=== PATIENT | female | born 1950 | race Caucasian/White ===

== ENCOUNTER 2016-07-28 12:50 | Outpatient (RCR) | payer MEDICARE ==
[~2016-07-28 12:50] MED LIST: ACET-2422 PO; AMOX-358 PO; ASP81CT PO; CEPH-507 PO; CHOL5000 PO; CHOL50005 PO; CRAN200C PO; CYAN100088 PO; CYAN1LOZ SL; CYCL10TA9 PO; DICL75TA2; DICL75TA2 PO; FLC100T1 PO; FLUO20CA25 PO; GABA-486 PO; GABA-488 PO; GBPN100C PO; GBPN300C PO; HCT25T; HYDR-3063 PO; HYDR-3583 PO; HYDR-757 PO; HYDR-87 PO; HYDR1TAB8; HYDR25TA4 PO; IPRA3AMP19 IH; KRIL500C PO; L.AC1CAP6 PO; LANO454C3 TOP; LEVO500T69 PO; LNZ600T PO; LVF500T PO; MEGA RED 300 MG PO; MELO15TA39 PO; METO-272; METO-272 PO; METO50TA2 PO; METR500T PO; MTP50T PO; MULT-35 PO; MULT-608 PO; OXYC-197 PO; OXYC-471 PO; POTA10TA10 PO; POTA10TA14 PO; POTA10TA6 PO; PRX10T PO; [UNRECOGNIZED DRUG - OTHER]
--- OUTSIDE RECORDS SUMMARY | 2016-07-28 12:54 | XMS REPORT | Continuity of Care Document ---
Author Author [facility] Organization [facility] Address Unknown Phone Unavailable Care Team Providers Care Wood Inspector Name Role Phone ISAURO HIGHTOWER MD PCP Insurance Providers Payer Name Policy Number Subscriber Name Relationship Wps Medicare [id number] Margarita Mariscal 18 Self / Same As Patient [facility] [id number] Margarita Mariscal 18 Self / Same As Patient Advance Directives Directive Response Recorded Date/Time Advance Directives Yes 02/13/16 9:10am Health Care Power of Snuff Grinder And Screener Yes 02/13/16 9:10am Organ Donor No 09/19/15 [...] Discontinued Cholecalciferol (Vitamin D3) 50,000 Unit Capsule, 82215 Unit Oral Daily 07/04 Discontinued Cranberry Extract [...] 2.00 inches 02/13/2016 9:09am Height (Calculated Centimeters) 157.124567 cm 02/13/2016 9:09am Weight (Pounds) 205 pounds 02/13/2016 9:09am Weight (Ounces) 9.0 oz 02/13/2016 9:09am Weight (Calculated Grams) 07356.582 gm 02/13/2016 9:09am Weight (Calculated Kilograms) 93.125073 kilograms 02/13/2016 9:09am Calculated BMI 37.6 02/13/2016 [...] SELECTED GROUPS OF HIGH RISK PATIENTS. SIXTH [place] COLLEGE OF CHEST PHYSICIANS CONSENSUS CONFERENCE ON ANTITHROMBOTIC THERAPY (2000). Urine Color YELLOW 02/13/2016 9:50am 02/13/2016 10:16am Urine Clarity SLIGHTLY CLOUDY 02/13/2016 9:50am 02/13/2016 10:16am Urine pH 6.5 5-9 02/13/2016 9:50am 02/13/2016 10:16am Urine Specific [place] 1.010 * 1.016-1.022 02/13/2016 9:50am 2015 10:16am [...] Discharge/Depart Date Attending Provider Departed Clinic [facility] 02/13/16 8:59am 02/13/16 1: 08pm SALOMÓN ADKINS MD
[2016-07-28 13:10] LABS: BASOPHILS % (AUTO) 1 % (0-10); EOSINOPHILS # (AUTO) 0.2 10^3/uL (0.0-0.3); EOSINOPHILS % (AUTO) 5 % (0-10); LYMPHOCYTES # (AUTO) 1.1 X 10^3 (1.0-4.0); LYMPHOCYTES % (AUTO) 26 % (12-44); MEAN CORPUSCULAR HEMOGLOBIN 29 PG (25-34); MEAN CORPUSCULAR HGB CONC 34 G/DL (32-36); MEAN CORPUSCULAR VOLUME 85 FL (80-99); MEAN PLATELET VOLUME 9.4 FL (7.4-10.4); MONOCYTES # (AUTO) 0.5 X 10^3 (0.0-1.0); MONOCYTES % (AUTO) 12 % (0-12); NEUTROPHILS # (AUTO) 2.5 X 10^3 (1.8-7.8); NEUTROPHILS % (AUTO) 57 % (42-75); PLATELET COUNT 230 10^3/uL (130-400); RED BLOOD COUNT 4.34 10^6/uL (4.35-5.85); RED CELL DISTRIBUTION WIDTH 14.7 % (10.0-14.5); WHITE BLOOD COUNT 4.4 10^3/uL (4.3-11.0)
[2016-07-28 13:38] LABS: ALANINE AMINOTRANSFERASE 27 U/L (0-55); ANION GAP 8 MMOL/L (5-14); ASPARTATE AMINO TRANSFERASE 32 U/L (5-34); BILIRUBIN,TOTAL 0.4 MG/DL (0.1-1.0); BLOOD UREA NITROGEN 15 MG/DL (7-18); BUN/CREATININE RATIO 21; CALCIUM 9.5 MG/DL (8.5-10.1); CARBON DIOXIDE 30 MMOL/L (21-32); CHLORIDE 105 MMOL/L (98-107); CREATININE SERUM 0.72 MG/DL (0.60-1.30); GFR ESTIMATED > 60; GLUCOSE 106 MG/DL (70-105); POTASSIUM 4.2 MMOL/L (3.6-5.0); SODIUM 143 MMOL/L (135-145); TOTAL PROTEIN 6.7 G/DL (6.4-8.2)
== END 2016-10-26 | disposition home or self-care (01) ==
LOC: ONC 12:50
PROVIDERS: ATTEND Internal Medicine Hematology & Oncology
DX: C50.012 Malignant neoplasm of nipple and areola, left female breast (principal); M06.9 Rheumatoid arthritis, unspecified
CPT/HCPCS: 36415; 80053; 85025; 99213

== ENCOUNTER 2016-08-25 15:00 | Outpatient (RCR) | payer MEDICARE ==
--- OUTSIDE RECORDS SUMMARY | 2016-06-11 12:59 | XMS REPORT | Continuity of Care Document ---
Author Author [facility] Organization [facility] Address Unknown Phone Unavailable Care Team Providers Care Fur Trimming Machine Operator Name Role Phone ISAURO HIGHTOWER MD PCP Insurance Providers Payer Name Policy Number Subscriber Name Relationship [employer] Medicare [id number] Margarita Mariscal 18 Self / Same As Patient [facility] [id number] Margarita Mariscal 18 Self / Same As Patient Advance Directives Directive Response Recorded Date/Time Advance Directives Yes 02/13/16 9:10am Health Care Power of Steel Fixer Yes 02/13/16 9:10am Organ Donor No 09/19/15 8:15am Resuscitation Status Full Code 02/13/16 9:10am Problems Active Problems Medical Problem Onset Date Status Facial fracture due to fall Unknown Acute Facial fracture due to fall Unknown Acute Medications Current Home Medications Medication Dose Units Route Directions Days/Qty Instructions Start Date Aspirin 81 Mg 81 Mg Oral Daily 07/06/11 Meloxicam 15 Mg 15 Mg Oral Daily 07/04/15 L.acidoph & Paracasei,B.lactis 1 Each 1 Cap Oral Daily 07/04/15 Cyanocobalamin (Vitamin B-12) 1,000 Mcg 2,500 Mcg Oral Daily Krill Oil 500 Mg 500 Mg Oral Daily 07/04/15 Fluoxetine Hcl 20 Mg 20 Mg Oral Daily 07/11/15 Cyclobenzaprine Hcl 10 Mg 20 Mg Oral Bedtime TAKES 2 (10 MG) TABLETS 07/11/15 Potassium Chloride 10 Meq 10 Meq Oral Daily 07/11/15 Hydrochlorothiazide 25 Mg 25 Mg Oral Daily 07/11/15 Metoprolol Succinate 50 Mg 50 Mg Oral Twice A Day 07/11/15 Gabapentin 300 Mg 300 Mg Oral Bedtime 07/11/15 Cholecalciferol (Vitamin D3) 5,000 Unit 5,000 Unit Oral Daily Gabapentin 100 Mg 100 Mg Oral Daily 07/11/15 Multivitamin 1 Each 1 Each Oral Daily 02/13/16 Hydrocodone/Ibuprofen 1 Each 1 Each Oral As Needed 02/13/16 Past Home Medications Medication Directions Ordered Status Potassium Chloride 10 Meq Tablet.sa, 10 Meq Oral 07/06/11 Discontinued Diclofenac Sodium 75 Mg Tablet.dr, 75 Mg 07/06/11 Discontinued Hydrochlorothiazide 25 Mg Tab, 25 Mg 07/06/11 Discontinued Metoprolol Succinate (Toprol Xl) 50 Mg Tab.sr.24h, 50 Mg 07/06/11 Discontinued Cyclobenzaprine Hcl (Flexeril) 10 Mg Tablet, 10 Mg Oral Three Times A Day 06/08 Discontinued Hydrocodone Bitartrate/Ibuprofen 1 Each Tablet, 07/06/11 Discontinued Cyanocobalamin/Cobamamide 1 Each Lozenge, 2500 Mcg Sublingual 07/06/11 Discontinued Multivitamins 1 Tab Tablet, 1 Tab Oral Daily 07/06/11 Discontinued [Patrick Red 300MG] , 1 Mg Oral Daily 07/06/11 Discontinued Fluoxetine Hcl (Prozac) 20 Mg Capsule, 20 Mg Oral Bedtime 07/06/11 Discontinued Linezolid 600 Mg Tab, 600 Mg Oral Twice A Day 07/17/11 Discontinued Mineral Oil/Petrolatum,White 16 Oz Cream.gm., 1 Applic Topically As Needed Discontinued Gabapentin 100 Mg Cap, 100 Mg Oral Daily 05/28/12 Discontinued Gabapentin 300 Mg Cap, 300 Mg Oral Bedtime 05/28/12 Discontinued Acetaminophen/Hydrocodone Bitart 1 Tab Tab, 1 - 2 Ea Oral Q4hr Prn 06/04/12 Discontinued Diclofenac Sodium 75 Mg Tablet.dr, 75 Mg Oral Twice A Day 06/15/12 Discontinued Metronidazole 500 Mg Tab, 1 Each Oral Every 8HRS 06/21/12 Discontinued Levofloxacin 500 Mg Tab, 500 Mg Oral Daily@11 06/21/12 Discontinued Fluconazole 100 Mg Tablet, 1 Each Oral Daily 06/21/12 Discontinued Metoprolol Tartrate (Lopressor) 50 Mg Tablet, 1 Each Oral Twice A Day Discontinued Albuterol Sulfate/Ipratropium 3 Ml Solution, 3 Ml Inhalation Q 4 Hours Discontinued Levofloxacin 500 Mg Tab, 1 Each Oral Daily 09/07/12 Discontinued Amoxicillin/Potassium Clav 1 Each Tablet, 1 Each Oral Twice A Day 04/18/15 Discontinued Hydrocodone/Acetaminophen 1 Each Tablet, 1 Each Oral Every 6 Hours as needed for Pain 04/18/15 Discontinued Hydrocodone/Acetaminophen 1 Each Tablet, 1 Tab Oral Twice A Day as needed for Pain 07/04/15 Discontinued Cholecalciferol (Vitamin D3) 50,000 Unit Capsule, 54727 Unit Oral Daily 07/04 Discontinued Cranberry Extract 200 Mg Capsule, 200 Mg Oral Daily 07/04/15 Discontinued Hydrocodone/Ibuprofen 1 Each Tablet, 2 Tab Oral Bedtime 07/11/15 Discontinued Oxycodone Hcl/Acetaminophen 1 Each Tablet, 1 Each Oral Every 4HRS 07/12/15 Discontinued Oxycodone Hcl/Acetaminophen 1 Each Tablet, 1-2 Each Oral Every 4HRS 07/14/15 Discontinued Hydrocodone/Ibuprofen 1 Each Tablet, 2 Each Oral Bedtime 09/13/15 Discontinued Oxycodone Hcl/Acetaminophen 1 Each Tablet, 1-2 Each Oral Q4-6HRS for Pain Discontinued Social History Social History Problem Response Recorded Date/Time Alcohol Use Denies Use 02/13/2016 9:14am Recreational Drug Use No 02/13/2016 9:14am Recent Foreign Travel No 02/13/2016 9:14am Recent Infectious Disease Exposure No 02/13/2016 9:14am Hospitalization with Isolation Denies 02/13/2016 9:14am Sexually Transmitted Disease No 09/19/2015 8:15am HIV/AIDS No 02/13/2016 9:14am Smoking Status Former Smoker 02/13/2016 9:10am Do you dip or chew tobacco? No 09/19/2015 8:15am Query Response Start Date Stop Date Smoking Status Former Smoker 07/11/1987 Hospital Discharge Instructions No hospital discharge instructions. Plan of Care Discharge Date 02/13/16 1:08pm Prescriptions See Medication Section Functional Status No functional status results. Allergies, Adverse Reactions, Alerts Allergen Type Severity Reaction Status Last Updated Codeine Allergy Mild HALLUCINATION Active 02/13/16 Immunizations Name Given Type Date of Pneumonia Vaccine 07/14/15 Historical Date of Influenza Vaccine 07/04/15 Historical Vital Signs Acute Vital Signs Vital Response Date/Time Pulse Rate (adult) 83 bpm (60 - 90) 02/13/2016 9:13am Respiratory Rate 16 bpm (12 - 24) 02/13/2016 9:13am O2 Sat by Pulse Oximetry 98 % (88 - 100) 02/13/2016 9:13am Blood Pressure 115/71 mm Hg 02/13/2016 9:13am Blood Pressure Mean 86 mm Hg 02/13/2016 9:13am Pain Pain Intensity 3 02/13/2016 9:13am Height (Feet) 5 feet 02/13/2016 9:09am Height (Inches) 2.00 inches 02/13/2016 9:09am Height (Calculated Centimeters) 157.641227 cm 02/13/2016 9:09am Weight (Pounds) 205 pounds 02/13/2016 9:09am Weight (Ounces) 9.0 oz 02/13/2016 9:09am Weight (Calculated Grams) 12299.582 gm 02/13/2016 9:09am Weight (Calculated Kilograms) 93.318607 kilograms 02/13/2016 9:09am Calculated BMI 37.6 02/13/2016 9:09am Results Laboratory Results Test Name Result Units Flags Reference Collection Date/Time Result Date/ Time Comments White Blood Count 4.3 10^3/uL 4.3-11.0 02/13/2016 9:50am 02/13/2016 10: 05am Red Blood Count 4.32 10^6/uL L 4.35-5.85 02/13/2016 9:50am 02/13/2016 10: 05am Hemoglobin 13.1 G/DL 11.5-16.0 02/13/2016 9:50am 02/13/2016 10:05am Hematocrit 38 % 35-52 02/13/2016 9:50am 02/13/2016 10:05am Mean Corpuscular Volume 88 FL 80-99 02/13/2016 9:50am 02/13/2016 10: 05am Mean Corpuscular Hemoglobin 30 PG 25-34 02/13/2016 9:50am 02/13/2016 10 :05am Mean Corpuscular Hemoglobin Concent 35 G/DL 32-36 02/13/2016 9:50am 04/2016 10:05am Red Cell Distribution Width 13.3 % 10.0-14.5 02/13/2016 9:50am 2015 10:05am Platelet Count 203 10^3/uL 130-400 02/13/2016 9:50am 02/13/2016 10: 05am Mean Platelet Volume 9.9 FL 7.4-10.4 02/13/2016 9:50am 02/13/2016 10: 05am Neutrophils (%) (Auto) 55 % 42-75 02/13/2016 9:50am 02/13/2016 10:05am Lymphocytes (%) (Auto) 28 % 12-44 02/13/2016 9:50am 02/13/2016 10:05am Monocytes (%) (Auto) 10 % 0-12 02/13/2016 9:50am 02/13/2016 10:05am Eosinophils (%) (Auto) 8 % 0-10 02/13/2016 9:50am 02/13/2016 10:05am Basophils (%) (Auto) 1 % 0-10 02/13/2016 9:50am 02/13/2016 10:05am Neutrophils # (Auto) 2.4 X 10^3 1.8-7.8 02/13/2016 9:50am 02/13/2016 10 :05am Lymphocytes # (Auto) 1.2 X 10^3 1.0-4.0 02/13/2016 9:50am 02/13/2016 10 :05am Monocytes # (Auto) 0.4 X 10^3 0.0-1.0 02/13/2016 9:50am 02/13/2016 10: 05am Eosinophils # (Auto) 0.3 10^3/uL 0.0-0.3 02/13/2016 9:50am 02/13/2016 10:05am Basophils # (Auto) 0.0 10^3/uL 0.0-0.1 02/13/2016 9:50am 02/13/2016 10: 05am Erythrocyte Sedimentation Rate 36 MM/HR H 0-30 02/13/2016 9:50am 2015 10:30am Prothrombin Time 12.4 SEC 12.2-14.7 02/13/2016 9:50am 02/13/2016 10: 29am INR Comment 0.9 0.8-1.4 02/13/2016 9:50am 02/13/2016 10:29am INTERPRETIVE DATA SUGGESTED THERAPEUTIC RANGE FOR INR'S: VENOUS THROMBOSIS, PULMONARY EMBOLISM, OR PREVENTION OF SYSTEMIC EMBOLISM (EG. IN ATRIAL FIBRILLATION): 2.0 - 3.0 MECHANICAL PROSTHETIC HEART VALVES: 2.5 - 3.5* *NOTE: INR'S UP TO 4.5 MAY BE NECESSARY IN SELECTED GROUPS OF HIGH RISK PATIENTS. SIXTH [place] COLLEGE OF CHEST PHYSICIANS CONSENSUS CONFERENCE ON ANTITHROMBOTIC THERAPY (2000). Urine Color YELLOW 02/13/2016 9:50am 02/13/2016 10:16am Urine Clarity SLIGHTLY CLOUDY 02/13/2016 9:50am 02/13/2016 10:16am Urine pH 6.5 5-9 02/13/2016 9:50am 02/13/2016 10:16am Urine Specific [place] 1.010 * 1.016-1.022 02/13/2016 9:50am 2015 10:16am Urine Protein NEGATIVE NEGATIVE 02/13/2016 9:50am 02/13/2016 10:16am Urine Glucose (UA) NEGATIVE NEGATIVE 02/13/2016 9:50am 02/13/2016 10: 16am Urine RBC (Auto) NEGATIVE NEGATIVE 02/13/2016 9:50am 02/13/2016 10: 16am Urine Ketones NEGATIVE NEGATIVE 02/13/2016 9:50am 02/13/2016 10:16am Urine Nitrite NEGATIVE NEGATIVE 02/13/2016 9:50am 02/13/2016 10:16am Urine Bilirubin NEGATIVE NEGATIVE 02/13/2016 9:50am 02/13/2016 10: 16am Urine Urobilinogen NORMAL MG/DL NORMAL 02/13/2016 9:50am 02/13/2016 10: 16am Urine Leukocyte Esterase 1+ * NEGATIVE 02/13/2016 9:50am 02/13/2016 10: 16am Urine RBC NONE /HPF 02/13/2016 9:50am 02/13/2016 10:16am Urine WBC 0-2 /HPF 02/13/2016 9:50am 02/13/2016 10:16am Urine Bacteria NEGATIVE /HPF 02/13/2016 9:50am 02/13/2016 10:16am Urine Squamous Epithelial Cells RARE /HPF 02/13/2016 9:50am 2015 10:16am Urine Crystals NONE /LPF 02/13/2016 9:50am 02/13/2016 10:16am Urine Casts NONE /LPF 02/13/2016 9:50am 02/13/2016 10:16am Urine Mucus NEGATIVE /LPF 02/13/2016 9:50am 02/13/2016 10:16am Urine Culture Indicated NO 02/13/2016 9:50am 02/13/2016 10:16am Sodium Level 144 MMOL/L 135-145 02/13/2016 9:50am 02/13/2016 10:23am Potassium Level 3.3 MMOL/L L 3.6-5.0 02/13/2016 9:50am 02/13/2016 10: 23am Chloride Level 103 MMOL/L 98-107 02/13/2016 9:50am 02/13/2016 10:23am Carbon Dioxide Level 32 MMOL/L 21-32 02/13/2016 9:50am 02/13/2016 10: 23am Anion Gap 9 MMOL/L 5-14 02/13/2016 9:50am 02/13/2016 10:23am Blood Urea Nitrogen 15 MG/DL 7-18 02/13/2016 9:50am 02/13/2016 10:23am Creatinine 0.70 MG/DL 0.60-1.30 02/13/2016 9:50am 02/13/2016 10:23am BUN/Creatinine Ratio 21 02/13/2016 9:50am 02/13/2016 10:23am Estimat Glomerular Filtration Rate > 60 02/13/2016 9:50am 2015 10:23am GFR INTERPRETIVE DATA UNITS FOR ESTIMATED GFR (eGFR): mL/min/1.73 M2 REFERENCE RANGE FOR ESTIMATED GFR (eGFR) eGFR NORMAL eGFR >60 MODERATELY DECREASED eGFR 30-59 SEVERLY DECREASED eGFR 15-29 KIDNEY FAILURE <15 (OR DIALYSIS) Glucose Level 98 MG/DL 70-105 02/13/2016 9:50am 02/13/2016 10:23am Calcium Level 9.3 MG/DL 8.5-10.1 02/13/2016 9:50am 02/13/2016 10:23am Total Bilirubin 0.4 MG/DL 0.1-1.0 02/13/2016 9:50am 02/13/2016 10:23am Alkaline Phosphatase 115 U/L 40-136 02/13/2016 9:50am 02/13/2016 10: 23am Aspartate Amino Transf (AST/SGOT) 30 U/L 5-34 02/13/2016 9:50am 2015 10:23am Alanine Aminotransferase (ALT/SGPT) 27 U/L 0-55 02/13/2016 9:50am 02/12 10:23am Total Protein 6.8 G/DL 6.4-8.2 02/13/2016 9:50am 02/13/2016 10:23am Albumin 4.1 G/DL 3.2-4.5 02/13/2016 9:50am 02/13/2016 10:23am Procedures Procedure Status Date Provider(s) Tracing only of electrocardiogram Active 02/13/16 ABIDA SAPP DO Encounters Encounter Location Arrival/Admit Date Discharge/Depart Date Attending Provider Departed Clinic [facility] 02/13/16 8:59am 02/13/16 1: 08pm SALOMÓN ADKINS MD
== END 2016-09-09 | disposition home or self-care (01) ==
PROVIDERS: ATTEND Orthopaedic Surgery
DX: Z47.1 Aftercare following joint replacement surgery (principal); Z96.612 Presence of left artificial shoulder joint

== ENCOUNTER 2016-12-05 14:50 | Outpatient (RCR) | payer MEDICARE ==
--- OUTSIDE RECORDS SUMMARY | 2016-09-11 10:51 | XMS REPORT | Continuity of Care Document ---
Author Author [facility] Organization [facility] Address Unknown Phone Unavailable Care Team Providers Care Motion Study Engineer Name Role Phone ISAURO HIGHTOWER MD PCP Insurance Providers Payer Name Policy Number Subscriber Name Relationship W[employer] Medicare [id number] Margarita Mariscal 18 Self / Same As Patient [facility] [id number] Margarita Mariscal 18 Self / Same As Patient Advance Directives Directive Response Recorded Date/Time Advance Directives Yes 02/13/16 9:10am Health Care Power of Multimedia Manager Yes 02/13/16 9:10am Organ Donor No 09/19/15 [...] Discontinued Cholecalciferol (Vitamin D3) 50,000 Unit Capsule, 49396 Unit Oral Daily 07/04 Discontinued Cranberry Extract [...] 2.00 inches 02/13/2016 9:09am Height (Calculated Centimeters) 157.098576 cm 02/13/2016 9:09am Weight (Pounds) 205 pounds 02/13/2016 9:09am Weight (Ounces) 9.0 oz 02/13/2016 9:09am Weight (Calculated Grams) 86136.582 gm 02/13/2016 9:09am Weight (Calculated Kilograms) 93.165873 kilograms 02/13/2016 9:09am Calculated BMI 37.6 02/13/2016 [...] SELECTED GROUPS OF HIGH RISK PATIENTS. SIXTH [employer] COLLEGE OF CHEST PHYSICIANS CONSENSUS CONFERENCE ON ANTITHROMBOTIC THERAPY (2000). Urine Color YELLOW 02/13/2016 9:50am 02/13/2016 10:16am Urine Clarity SLIGHTLY CLOUDY 02/13/2016 9:50am 02/13/2016 10:16am Urine pH 6.5 5-9 02/13/2016 9:50am 02/13/2016 10:16am Urine Specific [place] 1.010 * 1.016-1.022 02/13/2016 9:50am 2015 10:16am [...] Discharge/Depart Date Attending Provider Departed Clinic [facility] 02/13/16 8:59am 02/13/16 1: 08pm SALOMÓN ADKINS MD
== END 2016-12-10 | disposition home or self-care (01) ==
PROVIDERS: ATTEND Orthopaedic Surgery
DX: Z47.1 Aftercare following joint replacement surgery (principal); Z96.612 Presence of left artificial shoulder joint

== ENCOUNTER 2016-12-11 14:51 | Outpatient (RCR) | payer MEDICARE | END 2016-12-11 15:08 | disposition home or self-care (01) | PROVIDERS: ATTEND Orthopaedic Surgery | DX: Z47.1 Aftercare following joint replacement surgery (principal); Z96.612 Presence of left artificial shoulder joint ==

== ENCOUNTER → 2017-09-28 | Outpatient (CLI) | payer MEDICARE ==
[~2017-09-28] MED LIST changes: -METO-272 PO; +METO-370 PO; +METO50TA15 PO; -METO50TA2 PO
--- NOTE | 2017-09-29 09:02 | Diagnostic Imaging Report ---
INDICATION: Routine screening. COMPARISON: 08/07/2016 and 08/06/2015. TECHNIQUE: Screening digital mammography was performed bilaterally with a Computer Aided Detection (CAD) system. FINDINGS: Mild parenchymal density is noted in the right breast. There is a tiny well-defined nodule in the outer right breast which appears stable. No spiculated mass or malignant appearing microcalcifications are seen. Benign-appearing calcifications are noted. The right axilla is unremarkable. IMPRESSION: No mammographic features suspicious for malignancy are identified. ACR BI-RADS Category 2: Benign findings. Result letter will be mailed to the patient. Note: At least 10% of breast cancer is not imaged by mammography. Dictated by: Dictated on workstation # [id number]
== END ==
LOC: RAD 15:05
PROVIDERS: ATTEND Family Medicine
DX: Z12.31 Encounter for screening mammogram for malignant neoplasm of breast (principal)

== ENCOUNTER 2017-10-15 05:42 | Outpatient (CLI) | payer MEDICARE ==
[~2017-10-15] VITALS: Ht 160 cm; Wt 92.1 kg
[2017-10-15] MEDS ORDERED: SERT50TA9 PO (14:59)
[2017-10-15] MEDS ORDERED: NFBIOT1000 PO (14:59)
[2017-10-15] MEDS ORDERED: ASPI-999 PO (14:59)
== END 2017-10-15 15:01 ==
LOC: PREOP 05:42
PROVIDERS: ATTEND Surgery
DX: Z01.818 Encounter for other preprocedural examination (principal); R19.4 Change in bowel habit

== ENCOUNTER 2017-10-22 05:47 | Day surgery (SDC) | payer MEDICARE ==
[~2017-10-22] VITALS: Ht 160 cm; Wt 92.1 kg
[~2017-10-22 05:47] MED LIST changes: +ASPI-999 PO; +NFBIOT1000 PO; +SERT50TA9 PO
[2017-10-22] MEDS ORDERED: NS IV 500 ML 500 ML IV PRN (07:06)
--- NOTE | 2017-10-22 07:17 | History & Physicial ---
History of Present Illness History of Present Illness Reason for visit/HPI to undergo colonoscopy regarding a change in her bowel habits. Date of Admission 10/22/17 Date Seen by Provider: Oct 22, 2017 Time Seen by Provider: 07:15 I consulted on this patient on 10/22/17 07:14 Attending Physician Arcelia Rodriguez MD Admitting Physician Ricki Zavala MD Consult Allergies and Home Medications Allergies Coded Allergies: codeine (Verified Allergy, Mild, HALLUCINATION, 02/13/16) morphine (Unverified Allergy, Mild, SKIN WAS BLOTCHY AND PINK., 04/02/16) Home Medications Acetaminophen 650 Mg Tablet.er, 1,300 MG PO HS, (Reported) Aspirin 81 Mg Tab.chew, 81 MG PO DAILY, (Reported) Biotin 1,000 Mcg Tablet, 1,000 MCG PO DAILY, (Reported) Cholecalciferol (Vitamin D3) 5,000 Unit Capsule, 5,000 UNIT PO DAILY, (Reported) Cyanocobalamin (Vitamin B-12) 1,000 Mcg Tablet, 2,500 MCG PO DAILY, (Reported) Cyclobenzaprine HCl 10 Mg Tablet, 10 MG PO HS, (Reported) Gabapentin 300 Mg Capsule, 300 MG PO HS, (Reported) Gabapentin 100 Mg Capsule, 100 MG PO DAILY, (Reported) Hydrochlorothiazide 25 Mg Tablet, 25 MG PO DAILY, (Reported) Krill Oil 500 Mg Capsule, 500 MG PO DAILY, (Reported) L.acidoph & Paracasei,B.lactis 1 Each Capsule, 1 CAP PO DAILY, (Reported) Meloxicam 15 Mg Tablet, 15 MG PO DAILY, (Reported) Metoprolol Tartrate 50 Mg Tablet, 50 MG PO BID, (Reported) Multivitamin 1 Each Tablet, 1 TAB PO DAILY, (Reported) Potassium Chloride 10 Meq Tab.er.prt, 10 MEQ PO DAILY, (Reported) Sertraline HCl 50 Mg Tablet, 50 MG PO DAILY, (Reported) Past [id number]-Ccoesv-Wexwvz Hx Patient Social History Marrital Status: Employed/Student: retired Former Smoker, Quit: Apr 01, 1985 Recent Foreign Travel: No Contact w/other who traveled: No Recent Hopitalizations: No Recent Infectious Disease Expo: No Immunizations Up To Date Date of Pneumonia Vaccine: Jul 14, 2015 Date of Influenza Vaccine: Jul 04, 2017 Seasonal Allergies Seasonal Allergies: No Surgeries Yes Abdominal, Orthopedic, Vascular Surgery Respiratory No Cardiovascular Yes Deep Vein Thrombosis, Hypertension Neurological Yes Neuropathy Reproductive System Hx Reproductive Disorders: No (PAGETS DISEASE) Sexually Transmitted Disease: No HIV/AIDS: No Female Reproductive Disorders: Denies Genitourinary No Gastrointestinal Yes Hemorrhoids, Irritable Bowel Musculoskeletal Yes Arthritis Endocrine History of Endocrine Disorders: No HEENT History of HEENT Disorders: No Loss of Vision: Bilateral Hearing Impairment: Denies Cancer Yes Skin, Breast Blood Transfusions Adverse Reaction to a Blood Tr: No (HAS HAD BLOOD WITH NO REACTION) Family Medical History Family Hx: Diabetes mellitus 19 FATHER FH: brain tumor 19 MOTHER Hypertension 19 FATHER Constitutional: no symptoms reported EENTM: no symptoms reported Respiratory: no symptoms reported Cardiovascular: no symptoms reported Gastrointestinal: see HPI Musculoskeletal: joint pain Skin: no symptoms reported Psychiatric/Neurological: No Symptoms Reported Physical Exam Vital Signs Capillary Refill : General Appearance: No Apparent Distress HEENT: Normal ENT Inspection Neck: Normal Inspection Respiratory: Lungs Clear Cardiovascular: Regular Rate, Rhythm Gastrointestinal: Non Tender, Soft Rectal: Deferred Back: Normal Inspection Extremity: Normal Inspection Neurologic/Psychiatric: Alert, Oriented x3 Skin: Warm/Dry Assessment/Plan Assessment and Plan lady with a change in her bowel habits. Colonoscopy discussed in detail Problems: ARCELIA RODRIGUEZ MD Oct 22, 2017 7:16 am
--- NOTE | 2017-10-22 07:17 | Conscious Sedation/ASA ---
Conscious Sedation Pre-Proced Time Reviewed: 07:17 ASA Class: 2 Airway Mallampati Classification: (nuiqsut appropriate class) I. II. III, IV Lungs Heart ASA score ASA 1: a normal healthy patient ASA 2: a patient with a mild systemic disease (mid diabetes, controlled hypertension, obesity ASA 3: a patient with a severe systemic disease that limits activity (angina , COPD, prior Myocardial infarction) ASA 4: a patient with an incapacitating disease that is a constant threat to life (CHF, renal failure) ASA 5: a moribund patient not expected to survive 24 hrs. (ruptured aneurysm) ASA 6: a declared brain patient whose organs are being harvested. For emergent operations, add the letter E after the classification Grade 1 Sedation Plan: Discussed options with patient/fam Note The patient is an appropriate candidate to undergo the planned procedure, sedation, and anesthesia. The patient immediately re-assessed prior to indication. ARCELIA RODRIGUEZ MD Oct 22, 2017 7:17 am
[2017-10-22 07:19] VITALS: BP 113/74
[2017-10-22] MEDS ORDERED: fentaNYL INJECTION 100 MCG/2 ML AMP ONE ×2 (07:34→07:47)
[2017-10-22] MEDS ORDERED: MIDAZOLAM 2 MG/2 ML (VERSED) VIAL ONE ×4 (07:34)
[2017-10-22] MEDS: MIDAZOLAM 2 MG/2 ML (VERSED) VIAL IVP PRN ×3 (07:41→07:49)
[2017-10-22] MEDS: fentaNYL INJECTION 100 MCG/2 ML AMP IVP PRN ×3 (07:42→07:50)
--- NOTE | 2017-10-22 08:04 | Endo Procedure Record ---
Endo Procedure Report Date of Procedure Last Colonoscopy: Yes (UNSURE) Oct 22, 2017 Surgeon (s) ARCELIA RODRIGUEZ MD Post Procedure/Op Diagnosis Very few sigmoid diverticula Hemorrhoids Procedure Performed Colonoscopy to cecum Description of Procedure Anesthesia Type: Conscious Sedation Specimen(s) collected/removed none Description of the Procedure Indication for the procedure: This lady came in for colonoscopy to evaluate a recent change in her bowel habits. She denied any family history of colon cancer or polyps Informed consent was obtained after reviewing the procedure in detail. Description of the procedure: She was placed in left lateral decubitus position and her vital signs were monitored. Conscious sedation was achieved using Versed and fentanyl. Examination of the perianal area revealed external hemorrhoids. Digital examination was unremarkable. The colonoscope was introduced in the rectum and advanced all the way up to the cecum The scope was then withdrawn slowly and the mucosa examined in a systematic fashion. Findings: A minor degree of external hemorrhoids Very few sigmoid diverticula She tolerated the procedure well and was taken back to the nursing area in a stable condition. Impression: Change in bowel habits. Minor diverticulosis. No polyps. It would be reasonable to treat on the lines of irritable bowel syndrome Copies To: CHEIKH KNIGHT Copies To: DOMINGUEZ OLGUIN MD, XAVIER M MD Oct 22, 2017 8:04 am
--- NOTE | 2017-10-22 08:05 | Discharge Inst-Simple/Standard ---
Discharge Inst-Standard Discharge Medications New, Converted or Re-Newed RX: Other Patient Instructions/Follow Up Plan of Care/Instructions/FU: Follow-up with her primary physician Activity as Tolerated: Yes Discharge Diet: No Restrictions ARCELIA RODRIGUEZ MD Oct 22, 2017 8:05 am
[2017-10-22 08:30] VITALS: BP 110/80
[2017-10-22 09:00] VITALS: BP_SYST 110; BP_SYST 127; BP_DIAS 74; BP_DIAS 80
--- OUTSIDE RECORDS SUMMARY | 2017-10-23 10:09 | XMS REPORT | Continuity of Care Document ---
Author Author [facility] Organization [facility] Address Unknown Phone Unavailable Allergies Active Description Code Type Severity Reaction Onset Reported/Identified Relationship to Patient Clinical Status Yes codeine [id number] Drug Allergy Unknown N/A 07/09/2015 Yes codeine [id number] Drug Allergy Mild HALLUCINATION 02/13/2016 Yes morphine [id number] Drug Allergy Mild SKIN WAS BLOTCH 04/02/2016 Medications There is no data. Problems Date Dx Coded Attending Type Code Diagnosis Diagnosed By 07/17/2011 Ot 041.12 METHICILLIN RESISTANT STAPHYLOCOCCUS AUR 07/17/2011 Ot 355.8 MONONEURITIS LEG NOS 07/17/2011 Ot 682.6 CELLULITIS OF LEG 07/17/2011 Ot 786.2 COUGH 07/17/2011 Ot 892.1 OPEN WOUND FOOT-COMPL 07/17/2011 Ot E928.9 ACCIDENT NOS 07/17/2011 Ot V03.82 PROPHYLACTIC VACC AGAINST STREPTOCOCCUS 07/17/2011 Ot V04.81 ND FOR PROPHYLACTIC VACCIN AND INOCULATI 07/17/2011 Ot V12.55 PERSONAL HISTORY OF PULMONARY EMBOLISM 06/04/2012 Ot 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 06/04/2012 Ot 401.9 HYPERTENSION NOS 06/04/2012 Ot 496 CHR AIRWAY OBSTRUCT NEC 06/04/2012 Ot V04.81 ND FOR PROPHYLACTIC VACCIN AND INOCULATI 06/04/2012 Ot V12.51 HX-VENOUS THROMBOSIS EMBOLISM 06/21/2012 Ot 041.11 METHICILLIN SUSCEPTIBLE STAPHYLOCOCCUS A 06/21/2012 Ot 041.83 BACTERIAL INFECTION DUE TO CLOSTRIDIUM P 06/21/2012 Ot 173.30 UNSP MALIGN NEOPLASM OF SKIN OF OTH UN 06/21/2012 Ot 401.9 HYPERTENSION NOS 06/21/2012 Ot 493.20 CHRONIC OBSTRUCTIVE ASTHMA, NOS 06/21/2012 Ot 682.2 CELLULITIS OF TRUNK 06/21/2012 Ot 998.59 OTH POSTOPER INFECTION 06/21/2012 Ot V10.3 HX OF BREAST MALIGNANCY 06/21/2012 Ot V45.71 ACQUIRED ABSENCE OF BREAST AND NIPPLE 09/07/2012 Ot 466.0 ACUTE BRONCHITIS 09/07/2012 Ot 786.2 COUGH 03/04/2013 SIMRAN PERALES, RODDY Rust Ot 455.0 INT HEMORRHOID W/O COMPL 03/04/2013 RODDY KHALIL MD Ot 562.10 DIVERTICULOSIS COLON (W/O MENT OF HEMORR 03/04/2013 SIMRAN PERALES, RODDY Rust Ot 578.1 BLOOD IN STOOL 05/18/2013 CHEIKH KNIGHT Ot 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 05/18/2013 CHEIKH KNIGHT Ot 401.9 HYPERTENSION NOS 05/18/2013 CHEIKH KNIGHT Ot 496 CHR AIRWAY OBSTRUCT NEC 05/18/2013 CHEIKH KNIGHT Ot V12.51 HX-VENOUS THROMBOSIS EMBOLISM 05/18/2013 CHEIKH KNIGHT Ot V15.3 HX OF IRRADIATION 05/18/2013 CHEIKH KNIGHT Ot V58.66 LONG-TERM (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 05/18/2013 CHEIKH KNIGHT Ot V58.69 OTH MED,LT,CURRENT USE 07/19/2014 CAMPBELL PERALES, ISAURO Tavares Ot 454.0 07/21/2014 CAMPBELL PERALES, ISAURO Tavares Ot 454.0 LEG VARICOSITY W ULCER 08/02/2014 TRINO JAIME PAPER SALES REPRESENTATIVE Ot 174.0 08/02/2014 TRINO JAIME PAPER SALES REPRESENTATIVE Ot V76.11 10/12/2014 Ot 729.5 12/07/2014 Ot 840.4 12/07/2014 Ot E000.8 12/07/2014 Ot E928.9 01/03/2015 Ot 840.4 01/03/2015 Ot E000.8 01/03/2015 Ot E928.9 04/18/2015 TYRONE MEANS APRN Ot 802.0 NASAL BONE FX-CLOSED 04/18/2015 TYRONE MEANS APRN Ot 802.4 FX MALAR/MAXILLARY-CLOSE 04/18/2015 TYRONE MEANS APRN Ot 959.09 INJURY OF FACE AND NECK 04/18/2015 TYRONE MEANS APRN Ot E000.8 OTHER EXTERNAL CAUSE STATUS 04/18/2015 TYRONE MEANS APRN Ot E001.0 ACTIVITIES INVOLVING WALKING, MARCHING A 04/18/2015 TYRONE MEANS OIL PUMP STATION OPERATOR CHIEF Ot E849.6 ACCIDENT IN PUBLIC BLDG 04/18/2015 TYRONE MEANS OIL PUMP STATION OPERATOR CHIEF Ot E885.9 FALL FROM SLIPPING, TRIPPING, OR STUMBLI 05/02/2015 NEGIN PERALES, SALOMÓN Narayan Ot 454.2 VARICOS LEG ULCER/INFLAM 05/02/2015 NEGIN PERALES, SALOMÓN Narayan Ot 457.1 OTHER LYMPHEDEMA 05/02/2015 NEGIN PERALES, SALOMÓN Narayan Ot 707.12 ULCER OF CALF 06/04/2015 ANTONIACHEIKH GARCIA N Ot 174.0 06/04/2015 ANTONIACHEIKH GARCIA N Ot 401.9 06/04/2015 ANTONIACHEIKH N Ot 496 06/04/2015 ANTONIACHEIKH GARCIA N Ot V12.51 06/04/2015 CHEIKH KNIGHT N Ot V15.3 06/04/2015 CHEIKH KNIGHT N Ot V58.66 06/04/2015 CHEIKH KNIGHT N Ot V58.69 06/11/2015 Ot V10.3 06/11/2015 Ot V76.11 06/11/2015 Ot 578.1 06/11/2015 Ot V10.3 06/11/2015 Ot V12.51 06/11/2015 Ot V58.66 06/11/2015 Ot V58.69 06/11/2015 Ot V67.1 06/11/2015 Ot 578.1 06/11/2015 Ot 233.0 06/11/2015 Ot V10.3 06/11/2015 Ot V76.11 06/11/2015 Ot 585.3 06/11/2015 Ot 611.79 06/11/2015 Ot V10.3 06/11/2015 Ot V12.51 06/11/2015 Ot V58.66 06/11/2015 Ot V58.69 06/11/2015 Ot V67.1 06/11/2015 Ot 174.0 06/11/2015 Ot V12.51 06/11/2015 Ot V58.66 06/11/2015 Ot V58.69 06/11/2015 Ot V67.1 06/11/2015 Ot 174.0 06/11/2015 Ot V72.63 06/11/2015 Ot V74.8 06/11/2015 Ot 174.0 06/11/2015 Ot 401.9 06/11/2015 Ot 496 06/11/2015 Ot V12.51 06/11/2015 Ot V58.66 06/11/2015 Ot V58.69 06/11/2015 Ot V67.1 06/11/2015 Ot 174.0 06/11/2015 Ot 401.9 06/11/2015 Ot 496 06/11/2015 Ot V12.51 06/11/2015 Ot V58.66 06/11/2015 Ot V58.69 06/11/2015 Ot V67.1 06/11/2015 TRINO JAIME S PAPER SALES REPRESENTATIVE Ot V76.12 06/11/2015 SIMRAN PERALES, RODDY Rust Ot V72.84 06/11/2015 ANTONIACHEIKH GARCIA N Ot 174.0 06/11/2015 ANTONIACHEIKH GARCIA N Ot 401.9 06/11/2015 ANTONIACHEIKH GARCIA N Ot 496 06/11/2015 ANTONIACHEIKH GARCIA N Ot V12.51 06/11/2015 ANTONIACHEIKH GARCIA N Ot V15.3 06/11/2015 ANTONIACHEIKH GARCIA N Ot V58.66 06/11/2015 ANTONIACHEIKH GARCIA N Ot V58.69 06/11/2015 TRINO JAIME S PAPER SALES REPRESENTATIVE Ot 174.0 06/11/2015 JAIMETRINO Dubon S PAPER SALES REPRESENTATIVE Ot 401.9 06/11/2015 JAIMETRINO Dubon S PAPER SALES REPRESENTATIVE Ot 496 06/11/2015 JAIMETRINO Dubon S PAPER SALES REPRESENTATIVE Ot V12.51 06/11/2015 JAIMETRINO Dubon S PAPER SALES REPRESENTATIVE Ot V15.3 06/11/2015 JAIMETRINO Dubon S PAPER SALES REPRESENTATIVE Ot V58.66 06/11/2015 JAIMETRINO Dubon S PAPER SALES REPRESENTATIVE Ot V58.69 06/11/2015 CAMPBELL PERALES, ISAURO Tavares Ot 401.9 06/11/2015 CAMPBELL PERALES, ISAURO Tavares Ot V10.3 06/11/2015 ISAURO HIGHTOWER MD Ot V58.69 06/11/2015 ISAURO HIGHTOWER MD Ot V70.0 06/11/2015 Ot 729.5 06/11/2015 TRINO JAIME S PAPER SALES REPRESENTATIVE Ot 174.0 06/11/2015 JAIMETRINO Dubon S PAPER SALES REPRESENTATIVE Ot V76.11 06/11/2015 Ot 840.4 06/11/2015 Ot E000.8 06/11/2015 Ot E928.9 07/03/2015 LUCILLE PERALES, SALOMÓN P Ot M17.11 07/09/2015 LUCILLE PERALES, SALOMÓN P Ot M17.11 07/09/2015 LUCILLE PERALES, SALOMÓN P Ot R53.83 07/09/2015 LUCILLE PERALES, SALOMÓN P Ot Z01.810 07/09/2015 LUCILLE PERALES, SALOMÓN P Ot Z01.811 07/09/2015 LUCILLE PERALES, SALOMÓN P Ot Z01.812 07/09/2015 LUCILLE PERALES, SALOMÓN P Ot Z11.2 07/10/2015 CAMPBELL PERALES, ISAURO J Ot F17.211 07/10/2015 CAMPBELL PERALES, ISAURO J Ot J44.9 07/10/2015 CAMPBELL PERALES, ISAURO J Ot K44.9 07/10/2015 CAMPBELL PERALES, ISAURO J Ot K76.89 07/10/2015 CAMPBELL PERALES, ISAURO J Ot K80.20 07/10/2015 CAMPBELL PERALES, ISAURO Tavares Ot Z85.3 07/14/2015 LUCILLE PERALES, SALOMÓN Sanchez Ot I10 ESSENTIAL (PRIMARY) HYPERTENSION 07/14/2015 LUCILLE PERALES, SALOMÓN Sanchez Ot J44.9 CHRONIC OBSTRUCTIVE PULMONARY DISEASE, U 07/14/2015 LUCILLE PERALES, SALOMÓN Sanchez Ot M17.11 UNILATERAL PRIMARY OSTEOARTHRITIS, RIGHT 07/14/2015 LUCILLE PERALES, SALOMÓN Sanchez Ot Z23 ENCOUNTER FOR IMMUNIZATION 07/14/2015 LUCILLE PERALES, SALOMÓN Sanchez Ot Z87.891 PERSONAL HISTORY OF NICOTINE DEPENDENCE 07/16/2015 CHEIKH KNIGHT Ot 174.0 07/16/2015 CHEIKH KNIGHT Ot 401.9 07/16/2015 CHEIKH KNIGHT Ot 496 07/16/2015 CHEIKH KNIGHT Ot V12.51 07/16/2015 CHEIKH KNIGHT Ot V15.3 07/16/2015 CHEIKH KNIGHT Ot V58.66 07/16/2015 CHEIKH KNIGHT Ot V58.69 07/20/2015 SALOMÓN ADKINS MD Ot M17.11 07/20/2015 Ot V10.3 07/20/2015 Ot V76.11 07/20/2015 Ot 578.1 07/20/2015 Ot V10.3 07/20/2015 Ot V12.51 07/20/2015 Ot V58.66 07/20/2015 Ot V58.69 07/20/2015 Ot V67.1 07/20/2015 Ot 578.1 07/20/2015 Ot 233.0 07/20/2015 Ot V10.3 07/20/2015 Ot V76.11 07/20/2015 Ot 585.3 07/20/2015 Ot 611.79 07/20/2015 Ot V10.3 07/20/2015 Ot V12.51 07/20/2015 Ot V58.66 07/20/2015 Ot V58.69 07/20/2015 Ot V67.1 07/20/2015 Ot 174.0 07/20/2015 Ot V12.51 07/20/2015 Ot V58.66 07/20/2015 Ot V58.69 07/20/2015 Ot V67.1 07/20/2015 Ot 174.0 07/20/2015 Ot V72.63 07/20/2015 Ot V74.8 07/20/2015 Ot 174.0 07/20/2015 Ot 401.9 07/20/2015 Ot 496 07/20/2015 Ot V12.51 07/20/2015 Ot V58.66 07/20/2015 Ot V58.69 07/20/2015 Ot V67.1 07/20/2015 Ot 174.0 07/20/2015 Ot 401.9 07/20/2015 Ot 496 07/20/2015 Ot V12.51 07/20/2015 Ot V58.66 07/20/2015 Ot V58.69 07/20/2015 Ot V67.1 07/20/2015 TRINO JAIME Ot V76.12 07/20/2015 RODDY KHALIL MD Ot V72.84 07/20/2015 CHEIKH KNIGHT N Ot 174.0 07/20/2015 ANTONIAMELIDA GARCIAGEMINI N Ot 401.9 07/20/2015 ANTONIAMELIDA GARCIAGEMINI N Ot 496 07/20/2015 ANTONIACHEIKH GARCIA N Ot C50.019 07/20/2015 ANTONIAMELIDAGEMINI Kulkarni Ot I10 07/20/2015 ANTONIAMELIDAGEMINI Kulkarni Ot J44.9 07/20/2015 ANTONIACHEIKH N Ot V12.51 07/20/2015 CHEIKH KNIGHT N Ot V15.3 07/20/2015 CHEIKH KNIGHT N Ot V58.66 07/20/2015 CHEIKH KNIGHT N Ot V58.69 07/20/2015 CHEIKH KNIGHT N Ot Z79.82 07/20/2015 CHEIKH KNIGHT N Ot Z86.718 07/20/2015 CHEIKH KNIGHT N Ot Z92.3 07/20/2015 YENI TRINO Dubon PAPER SALES REPRESENTATIVE Ot 174.0 07/20/2015 YENI TRINO Dubon PAPER SALES REPRESENTATIVE Ot 401.9 07/20/2015 JAIMETRINO Dubon PAPER SALES REPRESENTATIVE Ot 496 07/20/2015 JAIMETRINO S PAPER SALES REPRESENTATIVE Ot V12.51 07/20/2015 YENI TRINO S PAPER SALES REPRESENTATIVE Ot V15.3 07/20/2015 JAIMETRINO Dubon S PAPER SALES REPRESENTATIVE Ot V58.66 07/20/2015 YENI TRINO Dubon PAPER SALES REPRESENTATIVE Ot V58.69 07/20/2015 CAMPBELL PERALES, ISAURO Tavares Ot 401.9 07/20/2015 CAMPBELL PERALES, ISAURO Tavares Ot V10.3 07/20/2015 CAMPBELL PERALES, ISAURO Tavares Ot V58.69 07/20/2015 CAMPBELL PERALES, ISAURO Tavares Ot V70.0 07/20/2015 Ot 729.5 07/20/2015 YENI TRINO Dubon PAPER SALES REPRESENTATIVE Ot 174.0 07/20/2015 YENI TRINO Dubon PAPER SALES REPRESENTATIVE Ot V76.11 07/20/2015 Ot 840.4 07/20/2015 Ot E000.8 07/20/2015 Ot E928.9 07/20/2015 LUCILLE PERALES, SALOMÓN P Ot M17.11 07/20/2015 LUCILLE PERALES, SALOMÓN P Ot M17.11 07/20/2015 LUCILLE PERALES, SALOMÓN P Ot R53.83 07/20/2015 LUCILLE PERALES, SALOMÓN P Ot Z01.810 07/20/2015 LUCILLE PERALES, SALOMÓN P Ot Z01.811 07/20/2015 LUCILLE PERALES, SALOMÓN P Ot Z01.812 07/20/2015 LUCILLE PERALES, SALOMÓN P Ot Z11.2 07/20/2015 CAMPBELL PERALES, ISAURO Tavares Ot F17.211 07/20/2015 CAMPBELL PERALES, ISAURO Tavares Ot J44.9 07/20/2015 CAMPBELL PERALES, ISAURO Tavares Ot K44.9 07/20/2015 CAMPBELL PERALES, ISAURO Tavares Ot K76.89 07/20/2015 CAMPBELL PERALES, ISAURO Tavares Ot K80.20 07/20/2015 CAMPBELL PERALES, ISAURO Tavares Ot Z85.3 07/25/2015 LUCILLE PERALES, SALOMÓN P Ot M17.11 07/25/2015 LUCILLE PERALES, SALOMÓN P Ot R53.83 07/25/2015 LUCILLE PERALES, SALOMÓN P Ot Z01.810 07/25/2015 LUCILLE PERALES, SALOMÓN P Ot Z01.811 07/25/2015 LUCILLE PERALES, SALOMÓN P Ot Z01.812 07/25/2015 LUCILLE PERALES, SALOMÓN P Ot Z11.2 07/26/2015 CAMPBELL PERALES, ISAURO Tavares Ot F17.211 07/26/2015 CAMPBELL PERALES, ISAURO Tavares Ot J44.9 07/26/2015 CAMPBELL PERALES, ISAURO Tavares Ot K44.9 07/26/2015 CAMPBELL PERALES, ISAURO Tavares Ot K76.89 07/26/2015 CAMPBELL PERALES, ISAURO Tavares Ot K80.20 07/26/2015 CAMPBELL PERALES, ISAURO Tavares Ot Z85.3 08/06/2015 Ot V10.3 08/06/2015 Ot V76.11 08/06/2015 Ot 578.1 08/06/2015 Ot V10.3 08/06/2015 Ot V12.51 08/06/2015 Ot V58.66 08/06/2015 Ot V58.69 08/06/2015 Ot V67.1 08/06/2015 Ot 578.1 08/06/2015 Ot 233.0 08/06/2015 Ot V10.3 08/06/2015 Ot V76.11 08/06/2015 Ot 585.3 08/06/2015 Ot 611.79 08/06/2015 Ot V10.3 08/06/2015 Ot V12.51 08/06/2015 Ot V58.66 08/06/2015 Ot V58.69 08/06/2015 Ot V67.1 08/06/2015 Ot 174.0 08/06/2015 Ot V12.51 08/06/2015 Ot V58.66 08/06/2015 Ot V58.69 08/06/2015 Ot V67.1 08/06/2015 Ot 174.0 08/06/2015 Ot V72.63 08/06/2015 Ot V74.8 08/06/2015 Ot 174.0 08/06/2015 Ot 401.9 08/06/2015 Ot 496 08/06/2015 Ot V12.51 08/06/2015 Ot V58.66 08/06/2015 Ot V58.69 08/06/2015 Ot V67.1 08/06/2015 Ot 174.0 08/06/2015 Ot 401.9 08/06/2015 Ot 496 08/06/2015 Ot V12.51 08/06/2015 Ot V58.66 08/06/2015 Ot V58.69 08/06/2015 Ot V67.1 08/06/2015 TRINO JAIME PAPER SALES REPRESENTATIVE Ot V76.12 08/06/2015 SIMRAN PERALES, RODDY Rust Ot V72.84 08/06/2015 ANTONIACHEIKH GARCIA N Ot 174.0 08/06/2015 ANTONIACHEIKH GARCIA N Ot 401.9 08/06/2015 ANTONIACHEIKH GARCIA N Ot 496 08/06/2015 ANTONIACHEIKH GARCIA N Ot C50.019 08/06/2015 ANTONIACHEIKH N Ot I10 08/06/2015 ANTONIA, CHEIKH N Ot J44.9 08/06/2015 ANTONIACHEIKH GARCIA N Ot V12.51 08/06/2015 ANTONIACHEIKH GARCIA N Ot V15.3 08/06/2015 ANTONIACHEIKH GARCIA N Ot V58.66 08/06/2015 ANTONIACHEIKH GARCIA N Ot V58.69 08/06/2015 ANTONIA, CHEIKH N Ot Z79.82 08/06/2015 ANTONIA, CHEIKH N Ot Z86.718 08/06/2015 ANTONIACHEIKH GARCIA N Ot Z92.3 08/06/2015 TRINO JAIME PAPER SALES REPRESENTATIVE Ot 174.0 08/06/2015 TIRNO JAIME PAPER SALES REPRESENTATIVE Ot 401.9 08/06/2015 TRINO JAIME PAPER SALES REPRESENTATIVE Ot 496 08/06/2015 TRINO JAIME PAPER SALES REPRESENTATIVE Ot V12.51 08/06/2015 TRINO JAIME PAPER SALES REPRESENTATIVE Ot V15.3 08/06/2015 TRINO JAIME S PAPER SALES REPRESENTATIVE Ot V58.66 08/06/2015 TRINO JAIME PAPER SALES REPRESENTATIVE Ot V58.69 08/06/2015 CAMPBELL PERALES, ISAURO J Ot 401.9 08/06/2015 CAMPBELL PERALES, ISAURO J Ot V10.3 08/06/2015 CAMPBELL PERALES, ISAURO J Ot V58.69 08/06/2015 CAMPBELL PERALES, ISAURO J Ot V70.0 08/06/2015 Ot 729.5 08/06/2015 TRINO JAIME PAPER SALES REPRESENTATIVE Ot 174.0 08/06/2015 TRINO JAIME PAPER SALES REPRESENTATIVE Ot V76.11 08/06/2015 Ot 840.4 08/06/2015 Ot E000.8 08/06/2015 Ot E928.9 08/06/2015 LUCILLE PERALES, SALOMÓN P Ot M17.11 08/06/2015 LUCILLE PERALES, SALOMÓN P Ot M17.11 08/06/2015 LUCILLE PERALES, SALOMÓN P Ot R53.83 08/06/2015 LUCILLE PERALES, SALOMÓN P Ot Z01.810 08/06/2015 LUCILLE PERALES, SALOMÓN P Ot Z01.811 08/06/2015 LUCILLE PERALES, SALOMÓN P Ot Z01.812 08/06/2015 LUCILLE PERALES, SALOMÓN P Ot Z11.2 08/06/2015 CAMPBELL PERALES, ISAURO J Ot F17.211 08/06/2015 CAMPBELL PERALES, ISAURO J Ot J44.9 08/06/2015 CAMPBELL PERALES, ISAURO J Ot K44.9 08/06/2015 CAMPBELL PERALES, SIAURO J Ot K76.89 08/06/2015 CAMPBELL PERALES, ISAURO J Ot K80.20 08/06/2015 CAMPBELL PERALES, ISAURO J Ot Z85.3 08/06/2015 LUCILLE PERALES, SALOMÓN P Ot Z47.1 08/06/2015 LUCILLE PERALES, SALOMÓN P Ot Z96.651 08/14/2015 LUCILLE PERALES, SALOMÓN P Ot M17.11 08/14/2015 LUCILLE PERALES, SALOMÓN P Ot R53.83 08/14/2015 LUCILLE PERALES, SALOMÓN P Ot Z01.810 08/14/2015 LUCILLE PERALES, SALOMÓN P Ot Z01.811 08/14/2015 LUCILLE PERALES, SALOMÓN P Ot Z01.812 08/14/2015 LUCILLE PERALES, SALOMÓN P Ot Z11.2 08/14/2015 CAMPBELL PERALES, ISAURO Tavares Ot F17.211 08/14/2015 CAMPBELL PERALES, ISAURO Tavares Ot J44.9 08/14/2015 CAMPBELL PERALES, ISAURO Tavares Ot K44.9 08/14/2015 CAMPBELL PERALES, ISAURO Tavares Ot K76.89 08/14/2015 ISAURO HIGHTOWER MD Ot K80.20 08/14/2015 CAMPBELL PERALES, ISAURO Tavares Ot Z85.3 08/30/2015 ANTONIACHEIKH N Ot D05.10 08/30/2015 ANTONIACHEIKH N Ot Z12.31 09/06/2015 ANTONIA, BOBAN N Ot 174.0 09/06/2015 ANTONIA BOBAN N Ot 401.9 09/06/2015 ANTONIA BOBAN N Ot 496 09/06/2015 ANTONIA BOBGEMIIN N Ot C50.019 09/06/2015 ANTONIA BOBAN N Ot I10 09/06/2015 ANTONIACHEIKH N Ot J44.9 09/06/2015 ANTONIA BOBAN N Ot V12.51 09/06/2015 ANTONIA BOBGEMINI N Ot V15.3 09/06/2015 ANTONIA, BOBAN N Ot V58.66 09/06/2015 ANTONIA, BOBAN N Ot V58.69 09/06/2015 ANTONIA, BOBAN N Ot Z79.82 09/06/2015 ANTONIA, BOBAN N Ot Z86.718 09/06/2015 ANTONIA, BOBAN N Ot Z92.3 09/09/2015 ANTONIACHEIKH GARCIA N Ot 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 09/09/2015 ANTONIA, BOBAN N Ot 401.9 HYPERTENSION NOS 09/09/2015 ANTONIA BOBAN N Ot 496 CHR AIRWAY OBSTRUCT NEC 09/09/2015 ANTONIA BOBAN N Ot 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, 09/09/2015 ANTONIA BOBAN N Ot I10 ESSENTIAL (PRIMARY) HYPERTENSION 09/09/2015 ANTONIACHEIKH GARCIA N Ot J44.9 CHRONIC OBSTRUCTIVE PULMONARY DISEASE, U 09/09/2015 ANTONIA, BOBAN N Ot V12.51 HX-VENOUS THROMBOSIS EMBOLISM 09/09/2015 ANTONIACHEIKH N Ot V15.3 HX OF IRRADIATION 09/09/2015 ANTONIA BOBAN N Ot V58.66 LONG-TERM (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 09/09/2015 CHEIKH KNIGHT Ot V58.69 OTH MED,LT,CURRENT USE 09/09/2015 CHEIKH KNIGHT Ot Z79.82 PENITENTIARY (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 09/09/2015 CHEIKH KNIGHT N Ot Z86.718 PERSONAL HISTORY OF OTHER VENOUS THROMBO 09/09/2015 CHEIKH KNIGHT N Ot Z92.3 PERSONAL HISTORY OF IRRADIATION 09/13/2015 CHEIKH KNIGHT N Ot 174.0 09/13/2015 CHEIKH KNIGHT N Ot 401.9 09/13/2015 CHEIKH KNIGHT N Ot 496 09/13/2015 CHEIKH KNIGHT N Ot C50.019 09/13/2015 CHEIKH KNIGHT N Ot I10 09/13/2015 CHEIKH KNIGHT N Ot J44.9 09/13/2015 CHEIKH KNIGHT N Ot V12.51 09/13/2015 CHEIKH KNIGHT N Ot V15.3 09/13/2015 CHEIKH KNIGHT N Ot V58.66 09/13/2015 CHEIKH KNIGHT N Ot V58.69 09/13/2015 CHEIKH KNIGHT N Ot Z79.82 09/13/2015 CHEIKH KNIGHT N Ot Z86.718 09/13/2015 CHEIKH KNIGHT N Ot Z92.3 09/13/2015 LUCILLE PERALES, SALOMÓN Sanchez Ot Z47.1 AFTERCARE FOLLOWING JOINT REPLACEMENT MARTÍNEZ 09/13/2015 LUCILLE PERALES, SALOMÓN Sanchez Ot Z96.651 PRESENCE OF RIGHT ARTIFICIAL KNEE JOINT 09/19/2015 SALOMÓN ADKINS MD Ot M75.102 09/19/2015 SALOMÓN ADKINS MD Ot Z01.818 09/19/2015 SALOMÓN ADKINS MD Ot I10 ESSENTIAL (PRIMARY) HYPERTENSION 09/19/2015 SALOMÓN ADKINS MD Ot J44.9 CHRONIC OBSTRUCTIVE PULMONARY DISEASE, U 09/19/2015 SALOMÓN ADKINS MD Ot M19.012 PRIMARY OSTEOARTHRITIS, LEFT SHOULDER 09/19/2015 LUCILLE PERALES, SALOMÓN Sanchez Ot 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, LEFT SHOULDER 09/19/2015 SALOMÓN ADKINS MD Ot Z11.2 ENCOUNTER FOR SCREENING FOR OTHER BACTER 09/19/2015 LUCILLE PERALES, SALOMÓN Sanchez Ot Z87.891 PERSONAL HISTORY OF NICOTINE DEPENDENCE 10/17/2015 LUCILLE PERALES, SALOMÓN Sanchez Ot M54.16 11/02/2015 LUCILLE PERALES, SALOMÓN Sanchez Ot M25.512 12/11/2015 LUCILLE PERALES, SALOMÓN Sanchez Ot M25.512 12/20/2015 LUCILLE PERALES, SALOMÓN Sanchez Ot M25.512 PAIN IN LEFT SHOULDER 02/02/2016 LUCILLE PERALES, SALOMÓN Sanchez Ot M17.11 UNILATERAL PRIMARY OSTEOARTHRITIS, RIGHT 02/13/2016 Ot V10.3 HX OF BREAST MALIGNANCY 02/13/2016 Ot V76.11 SCRN MAMMO- HIGH RISK PT, MALIGNANT NEOPL 02/13/2016 Ot 578.1 BLOOD IN STOOL 02/13/2016 Ot V10.3 HX OF BREAST MALIGNANCY 02/13/2016 Ot V12.51 HX-VENOUS THROMBOSIS EMBOLISM 02/13/2016 Ot V58.66 LONG-TERM ( 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 02/13/2016 Ot V58.69 OTH MED,LT, CURRENT USE 02/13/2016 Ot V67.1 RADIOTHERAPY FOLLOW-UP 02/13/2016 Ot 578.1 BLOOD IN STOOL 02/13/2016 Ot 233.0 CA IN SITU BREAST 02/13/2016 Ot V10.3 HX OF BREAST MALIGNANCY 02/13/2016 Ot V76.11 SCRN MAMMO- HIGH RISK PT, MALIGNANT NEOPL 02/13/2016 Ot 585.3 CHRONIC KIDNEY DISEASE, STAGE III (MODER 02/13/2016 Ot 611.79 SYMPTOMS IN BREAST NEC 02/13/2016 Ot V10.3 HX OF BREAST MALIGNANCY 02/13/2016 Ot V12.51 HX-VENOUS THROMBOSIS EMBOLISM 02/13/2016 Ot V58.66 LONG-TERM ( 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 02/13/2016 Ot V58.69 OTH MED,LT, CURRENT USE 02/13/2016 Ot V67.1 RADIOTHERAPY FOLLOW-UP 02/13/2016 Ot 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 02/13/2016 Ot V12.51 HX-VENOUS THROMBOSIS EMBOLISM 02/13/2016 Ot V58.66 LONG-TERM ( 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 02/13/2016 Ot V58.69 OTH MED,LT, CURRENT USE 02/13/2016 Ot V67.1 RADIOTHERAPY FOLLOW-UP 02/13/2016 Ot 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 02/13/2016 Ot V72.63 PRE- PROCEDURAL LABORATORY EXAMINATION 02/13/2016 Ot V74.8 SCREEN- BACTERIAL DIS NEC 02/13/2016 Ot 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 02/13/2016 Ot 401.9 HYPERTENSION NOS 02/13/2016 Ot 496 CHR AIRWAY OBSTRUCT NEC 02/13/2016 Ot V12.51 HX-VENOUS THROMBOSIS EMBOLISM 02/13/2016 Ot V58.66 LONG-TERM ( 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 02/13/2016 Ot V58.69 OTH MED,LT, CURRENT USE 02/13/2016 Ot V67.1 RADIOTHERAPY FOLLOW-UP 02/13/2016 Ot 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 02/13/2016 Ot 401.9 HYPERTENSION NOS 02/13/2016 Ot 496 CHR AIRWAY OBSTRUCT NEC 02/13/2016 Ot V12.51 HX-VENOUS THROMBOSIS EMBOLISM 02/13/2016 Ot V58.66 LONG-TERM ( 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 02/13/2016 Ot V58.69 OTH MED,LT, CURRENT USE 02/13/2016 Ot V67.1 RADIOTHERAPY FOLLOW-UP 02/13/2016 TRINO JAIME PAPER SALES REPRESENTATIVE Ot V76.12 OTH SCREEN MAMMO-MALIGN NEOPLASM OF LUIS A 02/13/2016 SIMRAN PERALES, RODDY Rust Ot V72.84 EXAM PRE-OPERATIVE NOS 02/13/2016 TRINO JAIME S PAPER SALES REPRESENTATIVE Ot 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 02/13/2016 TRINO JAIME S PAPER SALES REPRESENTATIVE Ot 401.9 HYPERTENSION NOS 02/13/2016 TRINO JAIME S PAPER SALES REPRESENTATIVE Ot 496 CHR AIRWAY OBSTRUCT NEC 02/13/2016 TRINO JAIME S PAPER SALES REPRESENTATIVE Ot V12.51 HX-VENOUS THROMBOSIS EMBOLISM 02/13/2016 JAIMETRNIO Dubon S PAPER SALES REPRESENTATIVE Ot V15.3 HX OF IRRADIATION 02/13/2016 TRINO JAIME PAPER SALES REPRESENTATIVE Ot V58.66 LONG-TERM (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 02/13/2016 TRINO JAIME S PAPER SALES REPRESENTATIVE Ot V58.69 OTH MED,LT,CURRENT USE 02/13/2016 CAMPBELL PERALES, ISAURO Tavares Ot 401.9 HYPERTENSION NOS 02/13/2016 CAMPBELL PERALES, ISAURO Tavares Ot V10.3 HX OF BREAST MALIGNANCY 02/13/2016 ISAURO HIGHTOWER MD Ot V58.69 OT MED,LT,CURRENT USE 02/13/2016 CAMPBELL PERALES, ISAURO Tavares Ot V70.0 ROUTINE MEDICAL EXAM 02/13/2016 Ot 729.5 PAIN IN LIMB 02/13/2016 TRINO JAIME PAPER SALES REPRESENTATIVE Ot 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 02/13/2016 TRINO JAIME PAPER SALES REPRESENTATIVE Ot V76.11 SCRN MAMMO-HIGH RISK PT, MALIGNANT NEOPL 02/13/2016 Ot 840.4 SPRAIN ROTATOR CUFF 02/13/2016 Ot E000.8 OTHER EXTERNAL CAUSE STATUS 02/13/2016 Ot E928.9 ACCIDENT NOS 02/13/2016 LUCILLE PERALES, SALOMÓN Sanchez Ot M17.11 UNILATERAL PRIMARY OSTEOARTHRITIS, RIGHT 02/13/2016 SALOMÓN ADKINS MD Ot M17.11 UNILATERAL PRIMARY OSTEOARTHRITIS, RIGHT 02/13/2016 SALOMÓN ADKINS MD Ot R53.83 OTHER FATIGUE 02/13/2016 SALOMÓN ADKINS MD Ot Z01.810 ENCOUNTER FOR PREPROCEDURAL CARDIOVASCUL 02/13/2016 SALOMÓN ADKINS MD Ot Z01.811 ENCOUNTER FOR PREPROCEDURAL RESPIRATORY 02/13/2016 SALOMÓN ADKINS MD Ot Z01.812 ENCOUNTER FOR PREPROCEDURAL LABORATORY E 02/13/2016 SALOMÓN ADKINS MD Ot Z11.2 ENCOUNTER FOR SCREENING FOR OTHER BACTER 02/13/2016 CAMPBELL PERALES, ISAURO Tavares Ot F17.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, CIGARETTES, IN PRETTY 02/13/2016 CAMPBELL PERALES, ISAURO Tavares Ot J44.9 CHRONIC OBSTRUCTIVE PULMONARY DISEASE, U 02/13/2016 ISAURO HIGHTOWER MD Ot K44.9 DIAPHRAGMATIC HERNIA WITHOUT OBSTRUCTION 02/13/2016 CAMPBELL PERALES, ISAURO Tavares Ot K76.89 OTHER SPECIFIED DISEASES OF LIVER 02/13/2016 ISAURO HIGHTOWER MD Ot K80.20 CALCULUS OF GALLBLADDER W/O CHOLECYSTITI 02/13/2016 ISAURO HIGHTOWER MD Ot Z85.3 PERSONAL HISTORY OF MALIGNANT NEOPLASM O 02/13/2016 CHEIKH KNIGHT Ot 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 02/13/2016 CHEIKH KNIGHT Ot Z12.31 ENCNTR SCREEN MAMMOGRAM FOR MALIGNANT NE 02/13/2016 LUCILLE PERALES, SALOMÓN Sanchez Ot M75.102 UNSP ROTATR-CUFF TEAR/RUPTR OF LEFT SHOU 02/13/2016 LUCILLE PERALES, SALOMÓN Sanchez Ot Z01.818 ENCOUNTER FOR OTHER PREPROCEDURAL EXAMIN 02/13/2016 LUCILLE PERALES, SALOMÓN Sanchez Ot M54.16 RADICULOPATHY, LUMBAR REGION 02/13/2016 MELIDA KNIGHTGEMINI N Ot 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 02/13/2016 ANTONIACHEIKH N Ot 401.9 HYPERTENSION NOS 02/13/2016 ANTONIACHEIKH N Ot 496 CHR AIRWAY OBSTRUCT NEC 02/13/2016 ANTONIACHEIKH N Ot 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, 02/13/2016 CHEIKH KNIGHT N Ot I10 ESSENTIAL (PRIMARY) HYPERTENSION 02/13/2016 CHEIKH KNIGHT N Ot J44.9 CHRONIC OBSTRUCTIVE PULMONARY DISEASE, U 02/13/2016 ANTONIACHEIKH N Ot V12.51 HX-VENOUS THROMBOSIS EMBOLISM 02/13/2016 ANTONIACHEIKH GARCIA N Ot V15.3 HX OF IRRADIATION 02/13/2016 ANTONIACHEIKH N Ot V58.66 LONG-TERM (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 02/13/2016 ANTONIACHEIKH N Ot V58.69 OTH MED,LT,CURRENT USE 02/13/2016 ANTONIACHEIKH N Ot Z79.82 PENITENTIARY (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 02/13/2016 ANTONIACHEIKH N Ot Z86.718 PERSONAL HISTORY OF OTHER VENOUS THROMBO 02/13/2016 ANTONIACHEIKH N Ot Z92.3 PERSONAL HISTORY OF IRRADIATION 02/13/2016 ANTONIACHEIKH N Ot 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 02/13/2016 ANTONIACHEIKH N Ot 401.9 HYPERTENSION NOS 02/13/2016 ANTONIACHEIKH N Ot 496 CHR AIRWAY OBSTRUCT NEC 02/13/2016 ANTONIACHEIKH N Ot 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, 02/13/2016 CHEIKH KNIGHT N Ot I10 ESSENTIAL (PRIMARY) HYPERTENSION 02/13/2016 CHEIKH KNIGHT N Ot J44.9 CHRONIC OBSTRUCTIVE PULMONARY DISEASE, U 02/13/2016 ANTONIACHEIKH GARCIA N Ot V12.51 HX-VENOUS THROMBOSIS EMBOLISM 02/13/2016 ANTONIACHEIKH GARCIA N Ot V15.3 HX OF IRRADIATION 02/13/2016 CHEIKH KNIGHT Ot V58.66 LONG-TERM (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 02/13/2016 CHEIKH KNIGHT Ot V58.69 OTH MED,LT,CURRENT USE 02/13/2016 CHEIKH KNIGHT Shad Ot Z79.82 PENITENTIARY (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 02/13/2016 CHEIKH KNIGHT Ot Z86.718 PERSONAL HISTORY OF OTHER VENOUS THROMBO 02/13/2016 CHEIKH KNIGHT Ot Z92.3 PERSONAL HISTORY OF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 12/11/2016 Ot 401.9 HYPERTENSION NOS 12/11/2016 Ot 496 CHR AIRWAY OBSTRUCT NEC 12/11/2016 Ot V12.51 HX-VENOUS THROMBOSIS EMBOLISM 12/11/2016 Ot V58.66 LONG-TERM ( 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 12/11/2016 Ot V58.69 OTH MED,LT, CURRENT USE 12/11/2016 Ot V67.1 RADIOTHERAPY FOLLOW-UP 12/11/2016 Ot 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 12/11/2016 Ot 401.9 HYPERTENSION NOS 12/11/2016 Ot 496 CHR AIRWAY OBSTRUCT NEC 12/11/2016 Ot V12.51 HX-VENOUS THROMBOSIS EMBOLISM 12/11/2016 Ot V58.66 LONG-TERM ( 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 12/11/2016 Ot V58.69 OTH MED,LT, CURRENT USE 12/11/2016 Ot V67.1 RADIOTHERAPY FOLLOW-UP 12/11/2016 TRINO JIAME Ot V76.12 OTH SCREEN MAMMO-MALIGN NEOPLASM OF LUIS A 12/11/2016 SIMRAN PERALES, RODDY Rust Ot V72.84 EXAM PRE-OPERATIVE NOS 12/11/2016 TRINO JAIME PAPER SALES REPRESENTATIVE Ot 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 12/11/2016 TRINO JAIME PAPER SALES REPRESENTATIVE Ot 401.9 HYPERTENSION NOS 12/11/2016 TRINO JAIME PAPER SALES REPRESENTATIVE Ot 496 CHR AIRWAY OBSTRUCT NEC 12/11/2016 TRINO JAIME PAPER SALES REPRESENTATIVE Ot V12.51 HX-VENOUS THROMBOSIS EMBOLISM 12/11/2016 TRINO JAIME PAPER SALES REPRESENTATIVE Ot V15.3 HX OF IRRADIATION 12/11/2016 TRINO JAIME PAPER SALES REPRESENTATIVE Ot V58.66 LONG-TERM (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 12/11/2016 TRINO JAIMEP Ot V58.69 OTH MED,LT,CURRENT USE 12/11/2016 ISAURO HIGHTOWER MD Ot 401.9 HYPERTENSION NOS 12/11/2016 ISAURO HIGHTOWER MD Ot V10.3 HX OF BREAST MALIGNANCY 12/11/2016 ISAURO HIGHTOWER MD Ot V58.69 OTH MED,LT,CURRENT USE 12/11/2016 ISAURO HIGHTOWER MD Ot V70.0 ROUTINE MEDICAL EXAM 12/11/2016 Ot 729.5 PAIN IN LIMB 12/11/2016 TRINO JAIME PAPER SALES REPRESENTATIVE Ot 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 12/11/2016 TRINO JAIME PAPER SALES REPRESENTATIVE Ot V76.11 SCRN MAMMO-HIGH RISK PT, MALIGNANT NEOPL 12/11/2016 Ot 840.4 SPRAIN ROTATOR CUFF 12/11/2016 Ot E000.8 OTHER EXTERNAL CAUSE STATUS 12/11/2016 Ot E928.9 ACCIDENT NOS 12/11/2016 SALOMÓN ADKINS MD Ot M17.11 UNILATERAL PRIMARY OSTEOARTHRITIS, RIGHT 12/11/2016 SALOMÓN ADKINS MD Ot M17.11 UNILATERAL PRIMARY OSTEOARTHRITIS, RIGHT 12/11/2016 SALOMÓN ADKINS MD Ot R53.83 OTHER FATIGUE 12/11/2016 SALOMÓN ADKINS MD Ot Z01.810 ENCOUNTER FOR PREPROCEDURAL CARDIOVASCUL 12/11/2016 SALOMÓN ADKINS MD Ot Z01.811 ENCOUNTER FOR PREPROCEDURAL RESPIRATORY 12/11/2016 SALOMÓN ADKINS MD Ot Z01.812 ENCOUNTER FOR PREPROCEDURAL LABORATORY E 12/11/2016 SALOMÓN ADKINS MD Ot Z11.2 ENCOUNTER FOR SCREENING FOR OTHER BACTER 12/11/2016 ISAURO HIGHTOWER MD Ot F17.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, CIGARETTES, IN PRETTY 12/11/2016 ISAURO HIGHTOWER MD Ot J44.9 CHRONIC OBSTRUCTIVE PULMONARY DISEASE, U 12/11/2016 ISAURO HIGHTOWER MD Ot K44.9 DIAPHRAGMATIC HERNIA WITHOUT OBSTRUCTION 12/11/2016 ISAURO HIGHTOWER MD Ot K76.89 OTHER SPECIFIED DISEASES OF LIVER 12/11/2016 ISAURO HIGHTOWER MD Ot K80.20 CALCULUS OF GALLBLADDER W/O CHOLECYSTITI 12/11/2016 ISAURO HIGHTOWER MD Ot Z85.3 PERSONAL HISTORY OF MALIGNANT NEOPLASM O 12/11/2016 CHEIKH KNIGHT Ot 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 12/11/2016 CHEIKH KNIGHT Ot Z12.31 ENCNTR SCREEN MAMMOGRAM FOR MALIGNANT NE 12/11/2016 SALOMÓN ADKINS MD Ot M75.102 UNSP ROTATR-CUFF TEAR/RUPTR OF LEFT SHOU 12/11/2016 SALOMÓN ADKINS MD Ot Z01.818 ENCOUNTER FOR OTHER PREPROCEDURAL EXAMIN 12/11/2016 SALOMÓN ADKINS MD Ot M54.16 RADICULOPATHY, LUMBAR REGION 12/11/2016 SALOMÓN ADKINS MD Ot M25.512 PAIN IN LEFT SHOULDER 12/11/2016 SALOMÓN ADKINS MD Ot 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 12/11/2016 TRINO JAIME Ot Z12.31 ENCNTR SCREEN MAMMOGRAM FOR MALIGNANT NE 12/11/2016 CHEIKH KNIGHT Ot 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, 12/11/2016 CHEIKH KNIGHT Ot M06.9 RHEUMATOID ARTHRITIS, UNSPECIFIED 12/11/2016 SALOMÓN ADKINS MD Ot Z47.1 AFTERCARE FOLLOWING JOINT REPLACEMENT MARTÍNEZ 12/11/2016 SALOMÓN ADKINS MD Ot 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 12/11/2016 SALOMÓN ADKINS MD Ot Z47.1 AFTERCARE FOLLOWING JOINT REPLACEMENT MARTÍNEZ 12/11/2016 SALOMÓN ADKINS MD Ot 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 03/07/2017 TYRONE MEANS APRN Ot 802.0 NASAL BONE FX-CLOSED 03/07/2017 TYRONE MEANS OIL PUMP STATION OPERATOR CHIEF Ot 802.4 FX MALAR/MAXILLARY-CLOSE 03/07/2017 TYRONE MEANS OIL PUMP STATION OPERATOR CHIEF Ot 959.09 INJURY OF FACE AND NECK 03/07/2017 TYRONE MEANS OIL PUMP STATION OPERATOR CHIEF Ot E000.8 OTHER EXTERNAL CAUSE STATUS 03/07/2017 TYRONE MEANS APRN Ot E001.0 ACTIVITIES INVOLVING WALKING, MARCHING A 03/07/2017 TYRONE MEANS APRN Ot E849.6 ACCIDENT IN PUBLIC BLDG 03/07/2017 TYRONE MEANS APRN Ot E885.9 FALL FROM SLIPPING, TRIPPING, OR STUMBLI 09/23/2017 Ot 585.3 CHRONIC KIDNEY DISEASE, STAGE III (MODER 09/23/2017 Ot 611.79 SYMPTOMS IN BREAST NEC 09/23/2017 Ot V10.3 HX OF BREAST MALIGNANCY 09/23/2017 Ot V12.51 HX-VENOUS THROMBOSIS EMBOLISM 09/23/2017 Ot V58.66 LONG-TERM ( 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 09/23/2017 Ot V58.69 OTH MED,LT, CURRENT USE 09/23/2017 Ot V67.1 RADIOTHERAPY FOLLOW-UP 09/23/2017 Ot 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 09/23/2017 Ot V12.51 HX-VENOUS THROMBOSIS EMBOLISM 09/23/2017 Ot V58.66 LONG-TERM ( 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 09/23/2017 Ot V58.69 OTH MED,LT, CURRENT USE 09/23/2017 Ot V67.1 RADIOTHERAPY FOLLOW-UP 09/23/2017 Ot 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 09/23/2017 Ot V72.63 PRE- PROCEDURAL LABORATORY EXAMINATION 09/23/2017 Ot V74.8 SCREEN- BACTERIAL DIS NEC 09/23/2017 Ot 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 09/23/2017 Ot 401.9 HYPERTENSION NOS 09/23/2017 Ot 496 CHR AIRWAY OBSTRUCT NEC 09/23/2017 Ot V12.51 HX-VENOUS THROMBOSIS EMBOLISM 09/23/2017 Ot V58.66 LONG-TERM ( 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 09/23/2017 Ot V58.69 OTH MED,LT, CURRENT USE 09/23/2017 Ot V67.1 RADIOTHERAPY FOLLOW-UP 09/23/2017 Ot 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 09/23/2017 Ot 401.9 HYPERTENSION NOS 09/23/2017 Ot 496 CHR AIRWAY OBSTRUCT NEC 09/23/2017 Ot V12.51 HX-VENOUS THROMBOSIS EMBOLISM 09/23/2017 Ot V58.66 LONG-TERM ( 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 09/23/2017 Ot V58.69 OTH MED,LT, CURRENT USE 09/23/2017 Ot V67.1 RADIOTHERAPY FOLLOW-UP 09/23/2017 TRINO JAIME Ot V76.12 OTH SCREEN MAMMO-MALIGN NEOPLASM OF LUIS A 09/23/2017 SIMRAN PERALES, RODDY Rust Ot V72.84 EXAM PRE-OPERATIVE NOS 09/23/2017 JAIME, HILAH S PAPER SALES REPRESENTATIVE Ot 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 09/23/2017 TRINO JAIME PAPER SALES REPRESENTATIVE Ot 401.9 HYPERTENSION NOS 09/23/2017 TRINO JAIME PAPER SALES REPRESENTATIVE Ot 496 CHR AIRWAY OBSTRUCT NEC 09/23/2017 TRINO JAIME PAPER SALES REPRESENTATIVE Ot V12.51 HX-VENOUS THROMBOSIS EMBOLISM 09/23/2017 TRINO JAIME PAPER SALES REPRESENTATIVE Ot V15.3 HX OF IRRADIATION 09/23/2017 TRINO JAIME PAPER SALES REPRESENTATIVE Ot V58.66 LONG-TERM (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 09/23/2017 TRINO JAIME PAPER SALES REPRESENTATIVE Ot V58.69 OTH MED,LT,CURRENT USE 09/23/2017 CAMPBELL PERALES, ISAURO Tavares Ot 401.9 HYPERTENSION NOS 09/23/2017 ISAURO HIGHTOWER MD Ot V10.3 HX OF BREAST MALIGNANCY 09/23/2017 ISAURO HIGHTOWER MD Ot V58.69 OTH MED,LT,CURRENT USE 09/23/2017 ISAURO HIGHTOWER MD Ot V70.0 ROUTINE MEDICAL EXAM 09/23/2017 Ot 729.5 PAIN IN LIMB 09/23/2017 TRINO JAIME PAPER SALES REPRESENTATIVE Ot 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 09/23/2017 TRINO JAIME PAPER SALES REPRESENTATIVE Ot V76.11 SCRN MAMMO-HIGH RISK PT, MALIGNANT NEOPL 09/23/2017 Ot 840.4 SPRAIN ROTATOR CUFF 09/23/2017 Ot E000.8 OTHER EXTERNAL CAUSE STATUS 09/23/2017 Ot E928.9 ACCIDENT NOS 09/23/2017 LUCILLE PERALES, SALOMÓN Sanchez Ot M17.11 UNILATERAL PRIMARY OSTEOARTHRITIS, RIGHT 09/23/2017 SALOMÓN ADKINS MD Ot M17.11 UNILATERAL PRIMARY OSTEOARTHRITIS, RIGHT 09/23/2017 SALOMÓN ADKINS MD Ot R53.83 OTHER FATIGUE 09/23/2017 SALOMÓN ADKINS MD Ot Z01.810 ENCOUNTER FOR PREPROCEDURAL CARDIOVASCUL 09/23/2017 SALOMÓN ADKINS MD Ot Z01.811 ENCOUNTER FOR PREPROCEDURAL RESPIRATORY 09/23/2017 SALOMÓN ADKINS MD Ot Z01.812 ENCOUNTER FOR PREPROCEDURAL LABORATORY E 09/23/2017 SALOMÓN ADKINS MD Ot Z11.2 ENCOUNTER FOR SCREENING FOR OTHER BACTER 09/23/2017 ISAURO HIGHTOWER MD Ot F17.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, CIGARETTES, IN PRETTY 09/23/2017 CAMPBELL PERALES, ISAURO Tavares Ot J44.9 CHRONIC OBSTRUCTIVE PULMONARY DISEASE, U 09/23/2017 ISAURO HIGHTOWER MD Ot K44.9 DIAPHRAGMATIC HERNIA WITHOUT OBSTRUCTION 09/23/2017 ISAURO HIGHTOWER MD Ot K76.89 OTHER SPECIFIED DISEASES OF LIVER 09/23/2017 ISAURO HIGHTOWER MD Ot K80.20 CALCULUS OF GALLBLADDER W/O CHOLECYSTITI 09/23/2017 ISAURO HIGHTOWER MD Ot Z85.3 PERSONAL HISTORY OF MALIGNANT NEOPLASM O 09/23/2017 CHEIKH KNIGHT Ot 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 09/23/2017 CHEIKH KNIGHT Ot Z12.31 ENCNTR SCREEN MAMMOGRAM FOR MALIGNANT NE 09/23/2017 SALOMÓN ADKINS MD Ot M75.102 UNSP ROTATR-CUFF TEAR/RUPTR OF LEFT SHOU 09/23/2017 SALOMÓN ADKINS MD Ot Z01.818 ENCOUNTER FOR OTHER PREPROCEDURAL EXAMIN 09/23/2017 SALOMÓN ADKINS MD Ot M54.16 RADICULOPATHY, LUMBAR REGION 09/23/2017 SALOMÓN ADKINS MD, Ot M25.512 PAIN IN LEFT SHOULDER 09/23/2017 SALOMÓN ADKINS MD, Ot 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 09/23/2017 TRINO JAIME Ot Z12.31 ENCNTR SCREEN MAMMOGRAM FOR MALIGNANT NE 09/24/2017 DOMINGUEZ OLGUIN MD, Ot Z12.31 ENCNTR SCREEN MAMMOGRAM FOR MALIGNANT NE 09/28/2017 DOMINGUEZ OLGUIN MD, Ot Z12.31 ENCNTR SCREEN MAMMOGRAM FOR MALIGNANT NE 09/29/2017 DOMINGUEZ OLGUIN MD, Ot Z12.31 ENCNTR SCREEN MAMMOGRAM FOR MALIGNANT NE Procedures Code Description Performed By Performed On 85.41 UNILAT SIMPLE MASTECTOMY 06/03/2012 38.93 VENOUS CATHETERIZATION NEC 06/14/2012 86.3 OTHER LOCAL DESTRUC SKIN 06/17/2012 [id number] REPLACE OF R KNEE JT WITH SYNTH SUB, MANDY 07/11/2015 [id number] REPLACEMENT OF L SHOULDER JT WITH SYNTH 02/20/2016 [id number] REMOVAL OF SYNTH SUB FROM L SHOULDER JT, 04/02/2016 [id number] REPLACE L SHOULDER JT W SYNTH SUB, LIGIA 04/02/2016 Results Test Result Range Whole blood hemoglobin and hematocrit panel - 04/04/16 05:45 Venous blood hemoglobin measurement (mass/volume) 9.4 g/dL 11.5-16.0 Blood hematocrit (volume fraction) 28 % 35-52 Encounters ACCT No. Visit Date/Time Discharge Status Pt. Type Provider Facility Loc./Unit Complaint [id number] 10/15/2017 05:42:00 10/15/2017 15:01:00 DIS Outpatient JENNIFER PERALES, ARCELIA Herrera [facility] PREOP COLONOSCOPY [id number] 09/28/2017 15:05:00 09/28/2017 23:59:59 CLS Outpatient SHARIF PERALES, DOMINGUEZ Tavares [facility] RAD SCREENING MAMMOGRAM [id number] 09/24/2017 14:41:00 09/24/2017 23:59:59 CLS Outpatient CHEIKH KNIGHT [facility] ONC [id number] 12/11/2016 14:51:00 12/11/2016 15:08:00 DIS Outpatient SALOMÓN ADKINS MD [facility] REHAB SHOULDER SURGERY [id number] 12/05/2016 14:50:00 12/10/2016 00:01:00 DIS Outpatient SALOMÓN ADKINS MD [facility] REHAB SHOULDER SURGERY [id number] 07/28/2016 12:50:00 10/26/2016 00:01:00 DIS Outpatient CHEIKH KNIGHT [facility] ONC [id number] 08/25/2016 15:00:00 09/09/2016 00:01:00 DIS Outpatient SALOMÓN ADKINS MD [facility] REHAB SHOULDER SURGERY [id number] 08/07/2016 14:14:00 08/07/2016 23:59:59 CLS Outpatient TRINO JAIME [facility] RAD SCREENING [id number] 06/04/2016 14:41:00 06/06/2016 17:00:00 DIS Outpatient SALOMÓN ADKINS MD [facility] REHAB SHOULDER SURGERY [id number] 05/28/2016 11:16:00 05/28/2016 00:01:00 DIS Outpatient SALOMÓN ADKINS MD [facility] REHAB SHOULDER SURGERY [id number] 05/09/2016 15:46:00 05/09/2016 23:59:59 CLS Outpatient COLTHJUNITO ISAURO MAYA [facility] QUICK [id number] 04/02/2016 08:42:00 04/04/2016 12:00:00 DIS Inpatient SALOMÓN ADKINS MD [facility] 4TH LEFT TOTAL SHOULDER DISPLACED GLENOID COMP [id number] 04/01/2016 12:31:00 04/01/2016 13:42:00 DIS Outpatient SALOMÓN ADKINS MD [facility] PREOP LEFT TOTAL SHOULDER DISPLACED GLENOID COM [id number] 03/27/2016 15:32:00 03/27/2016 23:59:59 CLS Outpatient SALOMÓN ADKINS MD [facility] RAD DISPLACED GLENOID COMPONENT [id number] 02/23/2016 11:42:00 02/23/2016 15:21:00 DIS Emergency ISAIAS PERALES, KRISTIE Billy [facility] ER POST SURGERY SWOLLEN LEFT ARM [id number] 02/20/2016 06:00:00 02/21/2016 17:40:00 DIS Inpatient SALOMÓN ADKINS MD [facility] 4TH OSTEOARTHRITIS LT.SHOULDER [id number] 02/13/2016 08:59:00 02/13/2016 13:08:00 DIS Outpatient SALOMÓN ADKINS MD [facility] PREOP TOTAL LEFT SHOULDER [id number] 12/21/2015 00:09:00 12/21/2015 23:59:59 CLS Preadmit SALOMÓN ADKINS MD [facility] REHAB [id number] 12/03/2015 13:45:00 12/20/2015 00:01:00 DIS Outpatient SALOMÓN ADKINS MD [facility] REHAB L SHOULDER SCOPE;L RC SPRAIN [id number] 09/19/2015 08:11:00 09/19/2015 12:35:00 DIS Outpatient SALOMÓN ADKINS MD [facility] SDC LEFT TORN ROTATOR CUFF [id number] 09/13/2015 08:56:00 09/13/2015 23:59:59 CLS Outpatient SALOMÓN ADKINS MD [facility] PREOP LEFT OPEN ROTATOR CUFF [id number] 09/13/2015 13:00:00 09/13/2015 13:32:00 DIS Outpatient SALOMÓN ADKINS MD [facility] REHAB S/P R TKR [id number] 09/12/2015 08:39:00 09/12/2015 23:59:59 CLS Outpatient SALOMÓN ADKINS MD [facility] RAD LUMBAR RADICULOPATHY [id number] 06/11/2015 13:30:00 09/09/2015 00:01:00 DIS Outpatient CHEIKH KNIGHT [facility] ONC [id number] 08/06/2015 13:59:00 08/06/2015 23:59:59 CLS Outpatient CHEIKH KNIGHT [facility] RAD SCREENING [id number] 07/11/2015 05:51:00 07/14/2015 11:10:00 DIS Inpatient SALOMÓN ADKINS MD [facility] 4TH RIGHT KNEE OSTEOARTHRITIS [id number] 07/06/2015 08:20:00 07/06/2015 23:59:59 CLS Outpatient ISAURO HIGHTOWER MD [facility] RAD ABNORMAL XRAY,NODULAR CAPACITY [id number] 07/04/2015 10:22:00 07/04/2015 23:59:59 CLS Outpatient SALOMÓN ADKINS MD [facility] PREOP RIGHT KNEE OSTEOARTHRITIS [id number] 06/11/2015 14:58:00 06/11/2015 23:59:59 CLS Outpatient SALOMÓN ADKINS MD [facility] RAD DJD [id number] 05/02/2015 10:31:00 05/02/2015 12:00:00 DIS Outpatient SALOMÓN KAM MD [facility] WOUNDCARE [id number] 04/18/2015 13:37:00 04/18/2015 15:07:00 DIS Emergency TYRONE MEANS OIL PUMP STATION OPERATOR CHIEF [facility] ER FALL/FACIAL INJURY [id number] 07/21/2014 13:15:00 07/21/2014 14:00:00 DIS Outpatient ISAURO HIGHTOWER MD [facility] WOUNDCARE VENOUS ULCER, LEFT ANKLE [id number] 07/13/2014 14:54:00 07/13/2014 23:59:59 CLS Outpatient TRINO JAIME PAPER SALES REPRESENTATIVE [facility] RAD SCREENING [id number] 06/07/2014 13:53:00 06/07/2014 23:59:59 CLS Outpatient TRINO JAIME PAPER SALES REPRESENTATIVE [facility] ONC [id number] 05/15/2014 18:22:00 05/15/2014 23:59:59 CLS Outpatient ISAURO HIGHTOWER MD [facility] 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, LOCK ASSEMBLER MED USE, HTN [id number] 05/12/2013 16:34:00 05/18/2013 00:01:00 DIS Outpatient CHEIKH KNIGHT [facility] ONC [id number] 03/04/2013 06:45:00 03/04/2013 23:59:59 CLS Outpatient TRINO JAIME PAPER SALES REPRESENTATIVE [facility] RAD SCREENING [id number] 03/04/2013 06:43:00 03/04/2013 10:45:00 DIS Outpatient RODDY KHALIL MD [facility] SDC HEMATOCHEZIA [id number] 03/03/2013 08:04:00 03/03/2013 23:59:59 CLS Outpatient RODDY KHALIL MD [facility] PREOP HEMATOCHEZIA [id number] 01/31/2013 18:44:00 01/31/2013 23:59:59 CLS Outpatient [id number] 10/22/2017 09:30:00 PEN Preadmit ARCELIA RODRIGUEZ MD [facility] ENDO IRREGULAR BOWEL MOVEMENTS [id number] 11/15/2014 14:40:00 Document Registration [id number] 05/23/2014 10:40:00 Document Registration [id number] 09/07/2012 14:19:00 Document Registration [id number] 08/23/2012 14:07:00 Document Registration [id number] 06/28/2012 14:26:00 Document Registration [id number] 06/14/2012 11:40:00 Document Registration [id number] 06/03/2012 05:30:00 Document Registration [id number] 05/28/2012 13:38:00 Document Registration [id number] 05/19/2012 12:53:00 Document Registration [id number] 04/12/2012 15:03:00 Document Registration [id number] 12/10/2011 13:37:00 Document Registration [id number] 10/06/2011 15:05:00 Document Registration [id number] 07/06/2011 16:40:00 Document Registration [id number] 03/04/2011 15:56:00 Document Registration [id number] 02/17/2011 13:10:00 Document Registration [id number] 11/20/2010 13:07:00 Document Registration
== END 2017-10-22 09:10 | disposition home or self-care (01) ==
LOC: ENDO 05:47
PROVIDERS: ATTEND Surgery
DX: K57.30 Diverticulosis of large intestine without perforation or abscess without bleeding (principal); K64.4 Residual hemorrhoidal skin tags; I10 Essential (primary) hypertension; Z79.82 Long term (current) use of aspirin; Z79.899 Other long term (current) drug therapy; Z86.718 Personal history of other venous thrombosis and embolism

== ENCOUNTER 2017-11-02 13:36 | Outpatient (RCR) | payer MEDICARE, OTHER ==
[2017-09-24 15:10] LABS: BASOPHILS % (AUTO) 0 % (0-10); EOSINOPHILS # (AUTO) 0.3 10^3/uL (0.0-0.3); EOSINOPHILS % (AUTO) 4 % (0-10); HEMATOCRIT 37 % (35-52); HEMOGLOBIN 13.4 G/DL (11.5-16.0); LYMPHOCYTES # (AUTO) 1.2 X 10^3 (1.0-4.0); LYMPHOCYTES % (AUTO) 20 % (12-44); MEAN CORPUSCULAR HEMOGLOBIN 32 PG (25-34); MEAN CORPUSCULAR HGB CONC 36 G/DL (32-36); MEAN CORPUSCULAR VOLUME 88 FL (80-99); MEAN PLATELET VOLUME 10.1 FL (7.4-10.4); MONOCYTES # (AUTO) 0.6 X 10^3 (0.0-1.0); MONOCYTES % (AUTO) 10 % (0-12); NEUTROPHILS # (AUTO) 3.8 X 10^3 (1.8-7.8); NEUTROPHILS % (AUTO) 65 % (42-75); PLATELET COUNT 219 10^3/uL (130-400); RED BLOOD COUNT 4.26 10^6/uL (4.35-5.85); WHITE BLOOD COUNT 5.8 10^3/uL (4.3-11.0)
[2017-09-24 15:34] LABS: ALANINE AMINOTRANSFERASE 47 U/L (0-55); ALKALINE PHOSPHATASE 147 U/L (40-136); BILIRUBIN,TOTAL 0.5 MG/DL (0.1-1.0); BUN/CREATININE RATIO 25; CALCIUM 9.6 MG/DL (8.5-10.1); CARBON DIOXIDE 28 MMOL/L (21-32); CHLORIDE 102 MMOL/L (98-107); CREATININE SERUM 0.68 MG/DL (0.60-1.30); GFR ESTIMATED > 60; GLUCOSE 119 MG/DL (70-105); POTASSIUM 3.8 MMOL/L (3.6-5.0); SODIUM 143 MMOL/L (135-145); TOTAL PROTEIN 7.4 GM/DL (6.4-8.2)
[2017-11-02 14:32] LABS: ALANINE AMINOTRANSFERASE 35 U/L (0-55); ALBUMIN 3.9 GM/DL (3.2-4.5); ALKALINE PHOSPHATASE 161 U/L (40-136); BILIRUBIN,TOTAL 0.4 MG/DL (0.1-1.0); BUN/CREATININE RATIO 20; CALCIUM 9.7 MG/DL (8.5-10.1); CARBON DIOXIDE 29 MMOL/L (21-32); CHLORIDE 105 MMOL/L (98-107); CREATININE SERUM 0.69 MG/DL (0.60-1.30); GFR ESTIMATED > 60; GLUCOSE 107 MG/DL (70-105); POTASSIUM 4.5 MMOL/L (3.6-5.0); SODIUM 143 MMOL/L (135-145); TOTAL PROTEIN 7.3 GM/DL (6.4-8.2)
[2017-12-02] MEDS ORDERED: OXYC-197 PO (09:50)
== END 2017-12-23 | disposition home or self-care (01) ==
LOC: ONC 13:36
PROVIDERS: ATTEND Internal Medicine Hematology & Oncology
DX: C50.012 Malignant neoplasm of nipple and areola, left female breast (principal); M06.9 Rheumatoid arthritis, unspecified; R19.8 Other specified symptoms and signs involving the digestive system and abdomen; R10.12 Left upper quadrant pain; I10 Essential (primary) hypertension; F32.9 Major depressive disorder, single episode, unspecified; E66.9 Obesity, unspecified; Z68.38 Body mass index [BMI] 38.0-38.9, adult; Z86.711 Personal history of pulmonary embolism; Z86.718 Personal history of other venous thrombosis and embolism; Z79.82 Long term (current) use of aspirin; Z79.899 Other long term (current) drug therapy
CPT/HCPCS: 36415; 80053; 85025; 99213

== ENCOUNTER → 2017-11-17 | Outpatient (CLI) | payer MEDICARE ==
--- NOTE | 2017-11-17 15:56 | Diagnostic Imaging Report ---
EXAMINATION: PA and lateral Chest at 3:26 p.m. INDICATION: Preop for knee arthroplasty. FINDINGS: The heart size is within normal limits and stable when compared to 02/13/2016. The lungs are clear. There is no sign of failure, pneumonia, or pleural effusion to indicate an acute abnormality. The mediastinum is not widened. The osseous structures are intact. In the interval since the prior exam, the patient has undergone a total shoulder arthroplasty procedure on the left. IMPRESSION: There is no evidence for an acute cardiopulmonary abnormality. Dictated by: Dictated on workstation # [id number]
== END ==
LOC: CARD 14:52
PROVIDERS: ATTEND Family Medicine
DX: Z01.811 Encounter for preprocedural respiratory examination (principal); Z01.810 Encounter for preprocedural cardiovascular examination; M25.562 Pain in left knee
CPT/HCPCS: 71046; 93005

== ENCOUNTER → 2017-11-26 | Outpatient (CLI) | payer MEDICARE ==
[~2017-11-26] VITALS: Ht 160 cm; Wt 98.6 kg
[2017-11-26 11:51] VITALS: BP 130/81
[2017-11-26 12:27] LABS: BASOPHILS % (AUTO) 0 % (0-10); BILIRUBIN,URINE NEGATIVE (NEGATIVE); CLARITY,URINE CLEAR; COLOR,URINE YELLOW; EOSINOPHILS # (AUTO) 0.1 10^3/uL (0.0-0.3); EOSINOPHILS % (AUTO) 3 % (0-10); GLUCOSE, URINE (UA) NEGATIVE (NEGATIVE); HEMATOCRIT 38 % (35-52); HEMOGLOBIN 13.3 G/DL (11.5-16.0); KETONES,URINE NEGATIVE (NEGATIVE); LEUKOCYTE ESTERASE ,URINE 1+ (NEGATIVE); LYMPHOCYTES # (AUTO) 1.4 X 10^3 (1.0-4.0); LYMPHOCYTES % (AUTO) 33 % (12-44); MEAN CORPUSCULAR HEMOGLOBIN 31 PG (25-34); MEAN CORPUSCULAR HGB CONC 35 G/DL (32-36); MEAN CORPUSCULAR VOLUME 87 FL (80-99); MEAN PLATELET VOLUME 10.4 FL (7.4-10.4); MONOCYTES # (AUTO) 0.5 X 10^3 (0.0-1.0); MONOCYTES % (AUTO) 11 % (0-12); NEUTROPHILS # (AUTO) 2.3 X 10^3 (1.8-7.8); NEUTROPHILS % (AUTO) 53 % (42-75); NITRITE,URINE NEGATIVE (NEGATIVE); PH,URINE 8 (5-9); PLATELET COUNT 202 10^3/uL (130-400); PROTEIN,URINE NEGATIVE (NEGATIVE); RED BLOOD COUNT 4.33 10^6/uL (4.35-5.85); UROBILINOGEN,URINE NORMAL (NORMAL); WHITE BLOOD COUNT 4.4 10^3/uL (4.3-11.0)
[2017-11-26 12:34] LABS: BACTERIA,URINE TRACE /HPF; SQUAMOUS EPITHELIAL CELL,UR 0-2 /HPF
[2017-11-26 12:44] LABS: PROTHROMBIN TIME PATIENT 12.9 SEC (12.2-14.7)
[2017-11-26 12:46] LABS: ALANINE AMINOTRANSFERASE 30 U/L (0-55); ALBUMIN 3.8 GM/DL (3.2-4.5); ALKALINE PHOSPHATASE 121 U/L (40-136); BILIRUBIN,TOTAL 0.4 MG/DL (0.1-1.0); BUN/CREATININE RATIO 20; CALCIUM 9.5 MG/DL (8.5-10.1); CARBON DIOXIDE 30 MMOL/L (21-32); CHLORIDE 106 MMOL/L (98-107); CREATININE SERUM 0.71 MG/DL (0.60-1.30); GFR ESTIMATED > 60; GLUCOSE 100 MG/DL (70-105); POTASSIUM 3.7 MMOL/L (3.6-5.0); SODIUM 142 MMOL/L (135-145); TOTAL PROTEIN 6.7 GM/DL (6.4-8.2)
[2017-11-26 13:26] LABS: ERYTHROCYTE SEDIMENTATION RATE 46 MM/HR (0-30)
== END ==
LOC: PREOP 11:26
PROVIDERS: ATTEND Orthopaedic Surgery
DX: Z01.812 Encounter for preprocedural laboratory examination (principal); Z11.2 Encounter for screening for other bacterial diseases; M17.12 Unilateral primary osteoarthritis, left knee; R53.83 Other fatigue; R82.90 Unspecified abnormal findings in urine
CPT/HCPCS: 36415; 80053; 81000; 85025; 85610; 85652; 86850; 86900; 86901; 87081; 87088; 87186

== ENCOUNTER 2017-12-02 08:30 | Inpatient (IN) | payer MEDICARE ==
--- NOTE | 2017-11-23 15:06 | HISTORY AND PHYSICAL ---
DATE OF SERVICE: DATE OF ADMISSION: 12/02/2017. REASON FOR ADMISSION: This will be for inpatient regular admission on 12/02/2017 for left total knee arthroplasty. HISTORY OF PRESENT ILLNESS: The patient is a 67-year-old female with longstanding progressive left knee pain. She has undergone treatment with injections in the past. She reports increasing pain with functional impairment. She reports that this has been progressive in nature and has become activity limiting. Radiographs reveal severe tricompartmental osteoarthritis. Due to functional impairment and failure to improve with conservative measures, the patient has elected to proceed with surgical intervention. REVIEW OF SYSTEMS: No chest pain, no shortness of breath, no dysuria. PAST MEDICAL HISTORY: Hypertension, arthritis, COPD. PAST SURGICAL HISTORY: 1. Liver. 2. Hysterectomy. 3. Lumbar. 4. Lumpectomy. 5. Arthroscopies. 6. Mastectomy. 7. Cystocele and rectocele repair. 8. Left total shoulder arthroplasty. 9. Right total knee arthroplasty. FAMILY HISTORY: Significant for diabetes, cardiovascular disease, hypertension. PRIMARY CARE PROVIDER: Dr. Zavala. MEDICATIONS: Meloxicam, hydrochlorothiazide, cyclobenzaprine, fluoxetine, metoprolol, potassium, tramadol, hydrocodone, B complex, acidophilus, Centrum. ALLERGIES: CODEINE AND MORPHINE. SOCIAL HISTORY: The patient denies alcohol, tobacco or drug use, although she is a previous smoker. PHYSICAL EXAMINATION: GENERAL: The patient is well developed, well nourished, in no acute distress. HEENT: Normocephalic, atraumatic. Pupils are equal, round and reactive to light. Oropharynx is clear. NECK: Supple, no lymphadenopathy. LUNGS: Clear to auscultation bilaterally. HEART: Regular rate and rhythm. ABDOMEN: Soft, nontender, nondistended. EXTREMITIES: The left knee demonstrates no skin lesion. She has negative straight leg raise. She ambulates with an antalgic gait on the left. Range of motion 0/2/125. There is no varus valgus laxity. Negative anterior and posterior drawer. She has slight effusion. IMPRESSION: Left knee osteoarthritis. PLAN: Left total knee arthroplasty. The risks, benefits, options, ramifications and recovery were discussed at length with the patient. She understands and wishes to proceed. She will require inpatient admission due to comorbidities, pain management, physical therapy and gait training. Job ID: [id number] DocumentID: [id number] Dictated Date: 11/23/2017 14:05:20 Database Administration Associate Date: 11/23/2017 15:05:52 Dictated By: SALOMÓN ADKINS MD
[~2017-12-02] VITALS: Ht 160 cm; Wt 98.6 kg
[2017-12-02] MEDS ORDERED: CEFUROXIME INJECTION 1,500 MG in NS (IVPB) 100 ML IV ONE (08:45)
[2017-12-02] MEDS: LACTATED RINGERS 1,000 ML IV PRN ×2 (08:50→11:53)
[2017-12-02 09:04] VITALS: BP 133/86
[2017-12-02] MEDS ORDERED: CEFUROXIME 1.5 GM (ZINACEF) VIAL ONE (09:10)
[2017-12-02] MEDS ORDERED: NS (IVPB) 100 ML ONE (09:10)
[2017-12-02] MEDS ORDERED: INTRA-ARTICULAR IU ONE ×5 (09:15)
--- NOTE | 2017-12-02 09:47 | Progress Note-Pre Operative ---
Pre-Operative Progress Note H&P Reviewed The H&P was reviewed, patient examined and no changes noted. Date Seen by Provider: Dec 02, 2017 Time Seen by Provider: 09:46 Date H&P Reviewed: Dec 02, 2017 Time H&P Reviewed: 09:46 Pre-Operative Diagnosis: left knee primary osteoarthritis SALOMÓN ADKINS MD Dec 02, 2017 09:47
--- NOTE | 2017-12-02 09:48 | Progress Note-Post Operative ---
Post-Operative Progess Note Surgeon (s)/Relish Maker (s) Surgeon SALOMÓN ADKINS MD Relish Maker: Toñito Garcia Pre-Operative Diagnosis left knee primary osteoarthritis Post-Operative Diagnosis left knee primary osteoarthritis Procedure & Operative Findings Date of Procedure 12/02/17 Procedure Performed/Findings left total knee arthroplasty Anesthesia Type GETA Estimated Blood Loss Estimated blood loss (mL): minimal Specimens/Packing Specimens Removed none Packing: none SALOMÓN ADKINS MD Dec 02, 2017 09:48
--- NOTE | 2017-12-02 09:49 | D/C HH Face to Face Order ---
D/C Face to Face Orders Instructions for Patient Patient Instructions/FollowUp: three weeks Physician to follow Patient: three weeks Discharge Diet for Home: Regular Diet Patient Data-Allergies,Ht & Wt Patient Allergies: Coded Allergies: codeine (Verified Allergy, Mild, HALLUCINATION, 02/13/16) morphine (Unverified Allergy, Mild, SKIN WAS BLOTCHY AND PINK., 04/02/16) Height (Feet): 5 Height (Inches): 3.00 Weight (Pounds): 217 Weight (Ounces): 6.0 Home Health Need/Face to Face Date of Face to Face: Dec 02, 2017 Clinical Findings: Instability, Muscle weakness, Non or partial weight bearing , Pain with ambulation, Unsteady gait I have seen Pt [id number]: Yes Discharged To: Home Diagnosis/Conditions: left total knee arthroplasty Problems/Diagnosis/Condition: Patient is Homebound due to: Hayden fall risk due to instabilty, Muscle weakness , Pain w/ambulation Homebound Status Due to the above stated illness, injury or surgical procedure (medical condition or diagnosis) and associated clinical findings, the patient is homebound because of his/her inability to leave home except with aid of a supportive device and/or person AND leaving the home requires a considerable and taxing effort or is medically contraindicated. Pt req the following assistanc: Walker Home Health Nursing Orders Home Health Services Order: Physical Therapy-Evaluate & Treat Home Health Infusion Therapy Line Start Date: Dec 02, 2017 Line Start Time: 0850 Line Type: Peripheral IV Site Location: Antecubital Therapy Orders Therapy Orders: PT to assess for OT Therapy Specific Orders: Eval assistive deivces, Gait training, Increase strength/endurance, Restore ROM Certify Stmt I certify that this patient is under my care and that I, a nurse practitioner or a physician; a school health assistant working with me, had a face to face encounter that - meets the physician face to face encounter requirements with this patient as dated. SALOMÓN ADKINS MD Dec 02, 2017 09:49
[2017-12-02] MEDS ORDERED: OXYC-197 PO (09:50)
[2017-12-02] MEDS ORDERED: SEVOFLURANE (ULTANE) 15 ML INHAL SOLN ONE ×6 (09:58→11:59)
[2017-12-02] MEDS ORDERED: DEXAMETHASONE 10 MG/ML (DECADRON) 1 ML VIAL ONE (09:58)
[2017-12-02] MEDS ORDERED: LIDOCAINE PF 2% 5 ML (XYLOCAINE) VIAL ONE (09:58)
[2017-12-02] MEDS ORDERED: MIDAZOLAM 2 MG/2 ML (VERSED) VIAL ONE (09:58)
[2017-12-02] MEDS ORDERED: fentaNYL INJECTION 100 MCG/2 ML AMP ONE ×4 (09:58→12:01)
[2017-12-02] MEDS ORDERED: ONDANSETRON 4 MG/2 ML (SDV) Z0FRAN ONE (09:58)
[2017-12-02] MEDS ORDERED: proPOfol 200 MG/20 ML (DIPRIVAN) VIAL IV ONE (09:58)
[2017-12-02] MEDS ORDERED: ONDANSETRON 4 MG/2 ML (SDV) Z0FRAN IVP PRN ×2 (10:15→12:30)
[2017-12-02] MEDS ORDERED: ACETAMINOPHEN 325 MG TABLET/CAPLET (TYLENOL) PO PRN (10:15)
[2017-12-02] MEDS ORDERED: diphenhydrAMINE 50 MG/ML INJ (BENADRYL) IVP PRN (10:15)
[2017-12-02] MEDS ORDERED: fentaNYL INJECTION 1,000 MCG in NS (IVPB) 80 ML IV SCH (10:15)
[2017-12-02] MEDS ORDERED: HYDROmorphone (DILAUDID) 2 MG/ML VIAL ONE (12:01)
[2017-12-02] MEDS: fentaNYL INJECTION 100 MCG/2 ML AMP IVP PRN ×4 (12:24→12:50)
--- NOTE | 2017-12-02 12:38 | Progress Note-Standard ---
Standard Progress Note Progress Notes/Assess & Plan Date Seen by Provider: Dec 02, 2017 Time Seen by Provider: 12:36 Progress/Assessment & Plan post op check No complaints radiographs--HW well positioned without fracture LLE--2 plus DP pulse with brisk cap refill. Intact sensation throughout. Intact DF and PF of toes and ankle s/p LTKA mobilize as able SALOMÓN ADKINS MD Dec 02, 2017 12:38
--- NOTE | 2017-12-02 12:49 | Diagnostic Imaging Report ---
Indication: Status post left knee replacement. Time of exam: 12:20 PM Findings: Two views of the left knee demonstrate postop changes of total knee arthroplasty. Prosthetic elements are in good position, without evidence of fracture loosening. There are overlying skin davon noted. Impression: Satisfactory postop appearance to the left knee. Dictated by: Dictated on workstation # [id number]
[2017-12-02 13:20] VITALS: BP 147/65
[2017-12-02] MEDS ORDERED: NALOXONE 0.4 MG/ML 1 ML (NARCAN) VIAL IV PRN (13:45)
--- NOTE | 2017-12-02 13:59 | Anesthesia-General Post-Op ---
General Patient Condition Mental Status/LOC: Same as Preop Cardiovascular: Satisfactory Nausea/Vomiting: Absent Respiratory: Satisfactory Pain: Controlled Complications: Absent Post Op Complications Complications None Follow Up Care/Instructions Patient Instructions None needed. Anesthesia/Patient Condition Patient Condition Patient is doing well, no complaints, stable vital signs, no apparent adverse anesthesia problems. No complications reported per nursing. FRANCK EDMONDS CRNA Dec 02, 2017 13:59
[2017-12-02] MEDS: NS IV 1000 ML 1,000 ML IV SCH (14:12)
[2017-12-02] MEDS: oxyCODONE/APAP 5/325MG (PERCOCET 5) TABLET PO PRN ×2 (14:28→16:50)
--- NOTE | 2017-12-02 15:09 | Physical Therapy Evaluation ---
PT Evaluation-General Medical Diagnosis Admission Date Dec 02, 2017 at 08:30 Medical Diagnosis: left TKA Onset Date: Dec 02, 2017 Therapy Diagnosis Therapy Diagnosis: impaired mobility, strength, endurane, balance, ROM Height/Weight Height (Feet): 5 Height (Inches): 3.00 Weight (Pounds): 217 Weight (Ounces): 6.0 Precautions Precautions/Isolations: Fall Prevention, Standard Precautions Weight Bear Status Left Lower Extremity: Left Weight Bearing/Tolerated Referral Physician: Toñito Garcia Reason for Referral: Evaluation/Treatment Medical History Pertinent Medical History: Arthritis, COPD, HTN Additional Medical History PAST MEDICAL HISTORY: Hypertension, arthritis, COPD. PAST SURGICAL HISTORY: 1. Liver. 2. Hysterectomy. 3. Lumbar. 4. Lumpectomy. 5. Arthroscopies. 6. Mastectomy. 7. Cystocele and rectocele repair. 8. Left total shoulder arthroplasty. 9. Right total knee arthroplasty. Reviewed History: Yes Prior/Core FIM Prior Level of Function Functional [place] Measure 0=Not Assessed/NA 4=Minimal Assistance 1=Total Assistance 5=Supervision or Setup 2=Maximal Assistance 6=Modified [place] 3=Moderate Assistance 7=Complete [place] Bed Mobility: 7 Transfers (B,C,W/C) (FIM): 7 Gait: 7 PT Evaluation-Current Subjective Patient in bed pre tx, agrees to PT, has pain of 8/10 in left knee. Pt/Family Goals to be independent at home Objective Patient Orientation: Person, Place, Situation Attachments: SCD's, Polar Pack, IV ROM/Strength ROM Lower Extremities left knee flexion 50 degrees, extension +5 degrees Strength Lower Extremities NT Neuromuscular (Tone, Coordination, Reflexes) NT Sensory Vision: Functional Hearing: Functional Sensation Right Lower Extremit: Intact Sensation Left Lower Extremity: Intact Sensation Lower Extremities Patient states she has numbness in different areas on her left leg but when tested below the knee she had intact light touch sensation. Transfers Functional [place] Measure 0=Not Assessed/NA 4=Minimal Assistance 1=Total Assistance 5=Supervision or Setup 2=Maximal Assistance 6=Modified [place] 3=Moderate Assistance 7=Complete [place] Transfers (B, C, W/C) (FIM): 4 Scootin Rollin Supine to/from Sit: 4 Sit to/from Stand: 4 Patient performs supine to sit with min assist, sit to stand with CGA. Patient had no complaints of dizziness or nausea. Cues for safety and hand placement. Gait Mode of Locomotion: Walk Anticipated Mode of Locomotion: Walk Gait (FIM): 1 Distance: 20' Gait Level of Assist: 4 Gait Persons Needed: 1 Gait Assistive Device: FWW Comments/Gait Description Patient ambulated 20' with a rolling walker with CGA. Ambulation was slow, antalgic, poor foot clearance on the left and flexed knee. Balance Sitting Static: Normal Sitting Dynamic: Normal Standing Static: Fair Standing Dynamic: Fair Treatment left TKA supine exercises x10 (AP, QS, HS, SAQ, SLR) CPM donned and set to 46 degrees flexion and -2 degrees extension Assessment/Needs Patient has impaired mobility, strength, endurance, balance, ROM post left TKA. Rehab Potential: Fair PT Short Term Goals Short Term Goals Time Frame: Dec 09, 2017 Transfers (B,C,W/C) (FIM): 5 Gait (FIM): 2 Gait Distance Comment: 70' Gait Level of Assist: 4 Gait Assistive Device: FWW PT Plan Problem List Problem List: Activity Tolerance, Functional Strength, Safety, Balance, Gait, Transfer, Bed Mobility, ROM Treatment/Plan Treatment Plan: Continue Plan of Care Treatment Plan: Bed Mobility, Education, Functional Activity Christina, Functional Strength, Gait, Safety, Therapeutic Exercise, Transfers Treatment Duration: Dec 09, 2017 Frequency: 11 times per week Estimated Hrs Per Day: .25 hour per day (15-30') Patient and/or Family Agrees t: Yes Safety Risks/Education Patient Education: Gait Training, Transfer Techniques, Correct Positioning, Disease Process, Safety Issues Teaching Recipient: Patient Teaching Methods: Demonstration, Discussion Response to Teaching: Reinforcement Needed Discharge Recommendations Plan Patient will perform bed mobility and transfer training, balance and endurance training, functional strengthening, stair training, gait training, and education , to improve functional mobility and independence at home. Therapy D/C Recommendations: Home w/ Family Support Time/GCodes Time In: 1430 Time Out: 1500 Total Billed Treatment Time: 30 Total Billed Treatment 1 visit EVM 20' GT 10' NOAH DUGGAN PT Dec 02, 2017 15:09
[2017-12-02 16:20] VITALS: BP 136/74
--- NOTE | 2017-12-02 16:48 | Consultation ---
History of Present Illness History of Present Illness Patient Consulted On(juliet/time) 12/02/17 16:44 Date Seen by Provider: Dec 02, 2017 Time Seen by Provider: 16:30 Reason for Visit: Left knee total arthroplasty History of Present Illness 67-year-old female admitted to orthopedic services Dr Adkins for left total knee arthroplasty. She has known severe osteoarthritis and previously has undergone right knee total arthroplasty. She also has a history of hypertension as well as COPD. Allergies and Home Medications Allergies Coded Allergies: codeine (Verified Allergy, Mild, HALLUCINATION, 02/13/16) morphine (Unverified Allergy, Mild, SKIN WAS BLOTCHY AND PINK., 04/02/16) Home Medications Aspirin 81 Mg Tab.chew, 81 MG PO DAILY, (Reported) Biotin 1,000 Mcg Tablet, 1,000 MCG PO DAILY, (Reported) Cholecalciferol (Vitamin D3) 5,000 Unit Capsule, 5,000 UNIT PO DAILY, (Reported) Cyanocobalamin (Vitamin B-12) 1,000 Mcg Tablet, 2,500 MCG PO DAILY, (Reported) Cyclobenzaprine HCl 10 Mg Tablet, 10 MG PO HS, (Reported) Gabapentin 300 Mg Capsule, 300 MG PO HS, (Reported) Gabapentin 100 Mg Capsule, 100 MG PO DAILY, (Reported) Hydrochlorothiazide 25 Mg Tablet, 25 MG PO DAILY, (Reported) Krill Oil 500 Mg Capsule, 500 MG PO DAILY, (Reported) L.acidoph & Paracasei,B.lactis 1 Each Capsule, 1 CAP PO DAILY, (Reported) Meloxicam 15 Mg Tablet, 15 MG PO DAILY, (Reported) Metoprolol Tartrate 50 Mg Tablet, 50 MG PO BID, (Reported) Multivitamin 1 Each Tablet, 1 TAB PO DAILY, (Reported) Oxycodone HCl/Acetaminophen 1 Each Tablet, 1 EACH PO Q4H Prescribed by: SALOMÓN ADKINS on 12/02/17 0950 Potassium Chloride 10 Meq Tab.er.prt, 10 MEQ PO DAILY, (Reported) Sertraline HCl 50 Mg Tablet, 50 MG PO DAILY, (Reported) Patient Home Medication List Home Medication List Reviewed: Yes Past Pvgyeua-Zlfhlx-Ztuivd Hx Patient Social History Alcohol Use: Denies Use Recreational Drug Use: No Smoking Status: Former Smoker Type Used: Cigarettes Former Smoker, Quit: Apr 01, 1985 Recent Foreign Travel: No Contact w/Someone Who Travel: No Recent Hopitalizations: No Immunizations Up To Date Date of Pneumonia Vaccine: Jul 14, 2015 Date of Influenza Vaccine: Jul 04, 2017 Seasonal Allergies Seasonal Allergies: Yes Surgeries History of Surgeries: Yes (SHOULDER SHOULDER X3, LIVER SURGERY-CYSTS, ) Surgeries: Abdominal, Orthopedic, Vascular Surgery Respiratory History of Respiratory Disorde: Yes (EASILY GETS PNEUMONIA/BRONCHITIS FROM PAST SMOKING) Respiratory Disorders: COPD Cardiovascular History of Cardiac Disorders: Yes Cardiac Disorders: Deep Vein Thrombosis, Hypertension Neurological History of Neurological Disord: Yes Neurological Disorders: Neuropathy Reproductive System Hx Reproductive Disorders: No (PAGETS DISEASE) Sexually Transmitted Disease: No HIV/AIDS: No Female Reproductive Disorders: Denies Genitourinary History of Genitourinary Disor: No Gastrointestinal History of Gastrointestinal Di: Yes Gastrointestinal Disorders: Hemorrhoids, Irritable Bowel Musculoskeletal History of Musculoskeletal Dis: Yes Musculoskeletal Disorders: Arthritis Endocrine History of Endocrine Disorders: No HEENT History of HEENT Disorders: Yes (READING GLASSES) Loss of Vision: Bilateral Hearing Impairment: Denies Cancer History of Cancer: Yes (PAGETS DISEASE) Cancer: Skin, Breast Type of Tx Receive: Surgical Intervention Psychosocial History of Psychiatric Problem: Yes (TAKES ANTIDEPRESSANT FOR ARTHRITIS) Integumentary History of Skin or Integumenta: No Blood Transfusions History of Blood Disorders: No Adverse Reaction to a Blood Tr: No (HAS HAD BLOOD WITH NO REACTION) Family Medical History Family Medial History: Diabetes mellitus 19 FATHER FH: brain tumor 19 MOTHER Hypertension 19 FATHER Review of Systems-General Constitutional: see HPI Physical Exam-General Problems Physical Exam Vital Signs Vital Signs - First Documented 12/02/17 09:04 Temp 96.9 Pulse 93 Resp 16 B/P (MAP) 133/86 (102) Pulse Ox 96 O2 Delivery Room Air Capillary Refill : General Appearance: no apparent distress Eyes: Bilateral Eye Normal Inspection HEENT: normal ENT inspection Respiratory: lungs clear (Other than faint expiratory wheeze in the apical region) Cardiovascular: regular rate, rhythm Gastrointestinal: soft Extremities: normal capillary refill, other (Left lower extremity elevated) Assessment/Plan Assessment/Plan Admission Diagnosis/Plan 1. Severe left knee osteoarthritis -Patient under care of orthopedics and has underwent left total knee arthroplasty -Orders written for pain management and physical therapy by orthopedics 2. Hypertension -We will maintain her hydrochlorothiazide along with potassium replacement. She is also on metoprolol 50 mg twice daily. 3. COPD -Have available albuterol if necessary by breathing treatments 4. Osteoarthritis -She will be placed back on gabapentin since this is her home medication along with meloxicam. Admission Status: Inpatient Order (span 2 midnights) Clinical Quality Measures DVT/VTE Risk/Contraindication: Risk Factor Score Per Nursin RFS Level Per Nursing on Admit: 4+=Very High DOMINGUEZ OLGUIN MD Dec 02, 2017 16:48
[2017-12-02] MEDS ORDERED: RT-ALBUTEROL SULF 2.5 MG/3 ML PRE-MIX VIAL INH PRN (17:00)
[2017-12-02] MEDS: CEFUROXIME INJECTION 750 MG in NS (IVPB) 100 ML IV SCH (17:09)
--- NOTE | 2017-12-02 18:30 | OPERATIVE REPORT ---
DATE OF SERVICE: 12/02/2017 PREOPERATIVE DIAGNOSIS: Left knee primary osteoarthritis. POSTOPERATIVE DIAGNOSIS: Left knee primary osteoarthritis. PROCEDURE: Left total knee arthroplasty. SURGEON: Carlos Adkins MD INJECTION PRESS OPERATOR: RAFI Franz, who assisted throughout the procedure and closed the incisions. ANESTHESIA: General endotracheal by Lamar Rodríguez CRNA. TOURNIQUET TIME: Approximately 60 minutes at 300 mmHg. ESTIMATED BLOOD LOSS: Minimal. DRAINS: None. COMPLICATIONS: None. POSTOPERATIVE PLANS: Routine protocol. MATERIALS: MicroPort cemented size 5 femur, cemented size 4+ tibia with a 12 mm insert and cemented size 32 patella. The patient was transported to the recovery room awake and stable condition. STATEMENT OF MEDICAL NECESSITY: The patient is a 67-year-old female with progressively worsening left knee pain. She has undergone treatment with injections, anti-inflammatories and activity modifications. Radiographs revealed severe osteoarthritis in her medial and patellofemoral joint spaces. Due to functional impairment and failure to improve with conservative measures, the patient elected to proceed with surgical intervention. Procedure after risks and benefits of procedure were discussed and questions were answered and informed consent was signed and placed on chart. The operative site was confirming preoperative holding area and initialed by the surgeon. The patient was then transported to the operating room after adequate levels of general endotracheal anesthetic were obtained. A timeout was called confirming the operative site. The left lower extremity was prepped and draped in usual sterile fashion with the leg elevated the knee flexed. Tourniquet inflated to 300 mmHg. Standard anterior approach was utilized. Hemostasis was obtained with cautery. Medial parapatellar arthrotomy was performed leaving 1 cm cuff on the patella for later reattachment. A portion of the fat pad was resected. The ACL was resected. A subperiosteal release was performed in the proximal medial tibia being careful to stay on the bony surface. Intramedullary guide was passed into the femur and the distal cutting block was placed. This cut was made and the femur sized to a size 5 x 5 cutting block was placed parallel to the epicondylar axis and cuts were made from posterior to anterior. A subperiosteal release was then carefully performed the posterior distal femur, being careful to stay on the bony surface. Intramedullary guide was then passed into the tibia. The cutting block was placed. The drop damari transected the intermalleolar axis. The cut was made. The base plate was is placed again, the drop damari transected. The intramedullary axis was then prepared with the drill and keel punch. The femoral trial was placed. The trochlear cut was made. A 12 mm insert was placed and the patella was prepared using a freehand technique by resecting 10 mm off the undersurface peg guide was placed and the peg holes were drilled. The 32 patellar trial was placed. Knee was taken through range of motion. Full extension was easily obtained 120 degrees flexion with gravity was easily obtained. Patella tracked well. There was no anterior/posterior or medial/lateral laxity in flexion or extension. The trials were removed. The joint was irrigated with pulse lavage. The bone ends were irrigated and dried. The periarticular block was placed and posterior capsule, medial and lateral retinaculum extensor mechanism as well as subcutaneous tissue. The tibial baseplate was cemented into position. Excess cement was removed. The superior surface was irrigated and dried and the polyethylene insert was placed. Distal femur was irrigated and dried and the femoral prosthesis was cemented in position removing excess cement. The knee was brought in full extension until the cement cured. The undersurface of patella was irrigated and dried and the patellar button was cemented into position. Once the cement had cured, the knee was taken through range of motion, full extension was easily obtained 120 degrees of flexion with gravity was easily obtained. The patella tracked well. There is no anterior/posterior or medial/lateral laxity in flexion or extension. The joint was further irrigated with pulse lavage. The arthrotomy was closed with a #2 Ethibond in [id number] interrupted fashion. The knee was flexed. The patella tracked well with no undue tension noted at the repair site. 0 Vicryl was used to deep subcutaneous tissue, 2-0 Vicryl for superficial subcutaneous tissue, davon used on the skin. A soft dressing was applied after irrigating the subcutaneous tissues. The wound was closed using total 6 liters throughout the procedure. A soft dressing was applied. The tourniquet was deflated. The patient transferred to recovery room awake and stable condition. Job ID: [id number] DocumentID: [id number] Dictated Date: 12/02/2017 11:57:33 Contact Assembler Date: 12/02/2017 18:29:42 Dictated By: CARLOS ADKINS MD
[2017-12-02 19:07] VITALS: BP 119/58
[2017-12-02] MEDS: SENNA W/DOCUSATE (SENOKOT S) TABLET PO SCH (20:32)
[2017-12-02] MEDS: GABAPENTIN 300 MG (NEURONTIN) CAP PO SCH (20:32)
[2017-12-02] MEDS: meTOprolol TARTRATE 50 MG (LOPRESSOR) TAB PO SCH (20:32)
[2017-12-03] VITALS: BP 131/60
[2017-12-03] MEDS: NS IV 1000 ML 1,000 ML IV SCH ×2 (01:47→13:28)
[2017-12-03] MEDS: CEFUROXIME INJECTION 750 MG in NS (IVPB) 100 ML IV SCH (01:47)
[2017-12-03] MEDS: oxyCODONE/APAP 5/325MG (PERCOCET 5) TABLET PO PRN ×8 (02:28→19:57)
[2017-12-03 04:29] VITALS: BP 150/66
[2017-12-03] MEDS: MULTIVIT W/MINERALS TAB (THERAGRAN M) PO SCH (06:07)
[2017-12-03] MEDS: KCL 10 MEQ TAB (MICRO K) PO SCH (06:07)
[2017-12-03 06:21] LABS: HEMOGLOBIN 11.3 G/DL (11.5-16.0)
--- NOTE | 2017-12-03 07:52 | Progress Note-Standard ---
Standard Progress Note Progress Notes/Assess & Plan Date Seen by Provider: Dec 03, 2017 Time Seen by Provider: 07:52 Progress/Assessment & Plan post op check No complaints radiographs--HW well positioned without fracture LLE--2 plus DP pulse with brisk cap refill. Intact sensation throughout. Intact DF and PF of toes and ankle s/p LTKA mobilize as able Final Diagnosis No complaints Vital Signs Date Time Temp Pulse Resp B/P (MAP) Pulse Ox O2 Delivery O2 Flow Rate FiO2 12/03/17 06:16 97 Nasal Cannula 2.00 12/03/17 06:00 17 12/03/17 04:29 98.9 108 17 150/66 (94) 96 Room Air 12/03/17 01:26 86 Room Air 12/03/17 00:00 97.6 106 17 131/60 (83) 92 Room Air 12/02/17 20:58 92 Room Air 12/02/17 19:16 92 Room Air 12/02/17 19:07 99.4 119 20 119/58 (78) 92 Room Air 12/02/17 16:20 97.9 111 20 136/74 (94) 93 Room Air 12/02/17 16:04 96 Room Air 12/02/17 15:09 Room Air 12/02/17 13:20 97.3 98 20 147/65 (92) 98 Room Air 12/02/17 09:04 96.9 93 16 133/86 (102) 96 Room Air I & O 12/03/17 07:00 Intake Total 4160 ml Output Total 1000 ml Balance 3160 ml Laboratory Tests Test 12/03/17 05:56 Range/Units Hemoglobin 11.3 L 11.5-16.0 G/DL Hematocrit 32 L 35-52 % LLE--dressing intact. NVI. Neg slr s/p LTKA mobilize SALOMÓN ADKINS MD Dec 03, 2017 07:52
[2017-12-03] MEDS: MELOXICAM 7.5 MG (MOBIC) TABLET PO SCH (07:55)
[2017-12-03] MEDS: SERTRALINE 50 MG (ZOLOFT) TABLET PO SCH (07:56)
[2017-12-03] MEDS: ASPIRIN E.C. 81 MG (ECOTRIN) TAB PO SCH (07:56)
[2017-12-03] MEDS: HYDROCHLOROTHIAZIDE 25 MG (HCTZ) TAB PO SCH (07:56)
[2017-12-03] MEDS: ENOXAPARIN 30 MG/0.3 ML (LOVENOX) SYR SC SCH ×2 (07:56→20:44)
--- NOTE | 2017-12-03 07:56 | Progress Note (SOAP) ---
Subjective Date Seen by Provider: Dec 03, 2017 Time Seen by Provider: 07:30 Subjective/Events-last exam Patient voices no new concerns to me this morning. She reports she didn't sleep very well last night. She missed her Flexeril dose. Objective Exam Vital Signs Date Time Temp Pulse Resp B/P (MAP) Pulse Ox O2 Delivery O2 Flow Rate FiO2 12/03/17 06:16 97 Nasal Cannula 2.00 12/03/17 06:00 17 12/03/17 04:29 98.9 108 17 150/66 (94) 96 Room Air 12/03/17 01:26 86 Room Air 12/03/17 00:00 97.6 106 17 131/60 (83) 92 Room Air 12/02/17 20:58 92 Room Air 12/02/17 19:16 92 Room Air 12/02/17 19:07 99.4 119 20 119/58 (78) 92 Room Air 12/02/17 16:20 97.9 111 20 136/74 (94) 93 Room Air 12/02/17 16:04 96 Room Air 12/02/17 15:09 Room Air 12/02/17 13:20 97.3 98 20 147/65 (92) 98 Room Air 12/02/17 09:04 96.9 93 16 133/86 (102) 96 Room Air I & O 12/03/17 07:00 Intake Total 4160 ml Output Total 1000 ml Balance 3160 ml Capillary Refill : General Appearance: No Apparent Distress Respiratory: Lungs Clear Cardiovascular: Regular Rate, Rhythm Results Lab Laboratory Tests 12/03/17 05:56: Hemoglobin 11.3L, Hematocrit 32L Assessment/Plan Assessment/Plan Assess & Plan/Chief Complaint 1. Severe left knee osteoarthritis -Patient under care of orthopedics and has underwent left total knee arthroplasty -Orders written for pain management and physical therapy by orthopedics 2. Hypertension -We will maintain her hydrochlorothiazide along with potassium replacement. She is also on metoprolol 50 mg twice daily. 12/03 blood pressure medications read zoomed yesterday and she is stable 3. COPD -Have available albuterol if necessary by breathing treatments 12/03 stable 4. Osteoarthritis -She will be placed back on gabapentin since this is her home medication along with meloxicam. -Flexeril daily at bedtime Clinical Quality Measures DVT/VTE Risk/Contraindication: Risk Factor Score Per Nursin RFS Level Per Nursing on Admit: 4+=Very High DOMINGUEZ OLGUIN MD Dec 03, 2017 07:56
[2017-12-03] MEDS: GABAPENTIN 100 MG (NEURONTIN) CAP PO SCH (07:57)
[2017-12-03] MEDS: SENNA W/DOCUSATE (SENOKOT S) TABLET PO SCH ×2 (07:57→20:44)
[2017-12-03] MEDS: meTOprolol TARTRATE 50 MG (LOPRESSOR) TAB PO SCH ×2 (07:57→20:44)
[2017-12-03 08:00] VITALS: BP 136/64
[2017-12-03] MEDS ORDERED: NON-FORMULARY MEDICATION 1 EA EA (Potassium Chloride (Klor-Con M10) 10 MEQ) PO SCH (09:00)
[2017-12-03] MEDS ORDERED: NON-FORMULARY MEDICATION 1 EA EA (Multivitamin (Daily Multiple Vitamin) 1 TAB) PO SCH (09:00)
[2017-12-03] MEDS ORDERED: NON-FORMULARY MEDICATION 1 EA EA (Meloxicam 15 MG) PO SCH (09:00)
--- NOTE | 2017-12-03 10:14 | Physical Therapy Daily Note ---
PT Daily Note-Current Subjective Patient agrees to PT. Pain Numeric Pain Scale: 5-Moderate Pain Location: Left Location Body Site: Knee Pain Description: Acute Mental Status Patient Orientation: Normal For Age Attachments: IV Transfers Functional [place] Measure 0=Not Assessed/NA 4=Minimal Assistance 1=Total Assistance 5=Supervision or Setup 2=Maximal Assistance 6=Modified [place] 3=Moderate Assistance 7=Complete IndependenceIRFPAI Quality Coding Scale 6 Independent with activity with or without an assistive device 5 Patient requires set up or clean up by helper. Patient completes activity by themselves 4 Supervision or touching assist (CGA). [place] provide cues , steadying assist 3 The helper provides less than half the effort to complete the activity 2 The helper provides more than half the effort to complete the activity 1 Dependent. The helper does all the effort to complete an activity 7 Patient refused to complete or attempt activity 9 The patient did not perform the activity before the current illness or injury 88 Not attempted due to Medical conditions or safety concerns Transfers (B, C, W/C) (FIM): 4 Scootin Supine to/from Sit: 4 Sit to/from Stand: 4 Bed to/from Chair: 4 Weight Bearing Left Lower Extremity: Left Weight Bearing/Tolerated Gait Training Gait (FIM): 2 Distance: 70' Gait Level of Assist: 4 Gait Persons Needed: 1 Gait Assistive Device: FWW antalgic, trunk flexed posture Exercises Supine Ex: Ankle pumps, Quad Set, Heel Slides Supine Reps: 15 Seated Therapy Exercises: Ankle pumps, Long arc quads Seated Reps: 10 (AAROM LAQ) Assessment Patient tolerated treatment well and is sitting EOB for OT. PT to increase activity as tolerated by patient. Patient is limited with left quad control. PT Short Term Goals Short Term Goals Time Frame: Dec 09, 2017 Transfers (B,C,W/C) (FIM): 5 Gait (FIM): 2 Gait Distance Comment: 70' Gait Level of Assist: 4 Gait Assistive Device: FWW PT Plan Treatment/Plan Treatment Plan: Continue Plan of Care Treatment Plan: Bed Mobility, Education, Functional Activity Christina, Functional Strength, Gait, Safety, Therapeutic Exercise, Transfers Treatment Duration: Dec 09, 2017 Frequency: 11 times per week Estimated Hrs Per Day: .25 hour per day (15-30') Patient and/or Family Agrees t: Yes Time/GCodes Time In: 925 Time Out: 948 Total Billed Treatment Time: 23 Total Billed Treatment 1 visit EX 10 min GT 13 min KALYN BURNHAM PT Dec 03, 2017 10:14
--- NOTE | 2017-12-03 11:55 | Occupational Therapy Eval ---
OT Evaluation-General/PLF Medical Diagnosis Admission Date Dec 02, 2017 at 08:30 Medical Diagnosis: left TKA Onset Date: Dec 02, 2017 Therapy Diagnosis Therapy Diagnosis: decreased self care skills Height/Weight Height (Feet): 5 Height (Inches): 3.00 Weight (Pounds): 217 Weight (Ounces): 6.0 Precautions Precautions/Isolations: Standard Precautions Safety Interventions: None Referral Physician: Toñito Garcia Medical History Pertinent Medical History: Arthritis, COPD, HTN Additional Medical History right TKA, mastectomy, left TSA Current History Pt s/p left TKA. Reviewed History: Yes Social History Home: Single Level Current Living Status: Spouse Entry Into Home: Stairs With Railing Steps Into Home: 3 Pt states spouse is able to provide minimal assistance, so granddaughter will be staying with them to assist at d/c ADL-Prior Level of Function ADL PLOF Comments Pt reports being independent with self care and mobility. Does not use any assistive devices. DME/Equipment: Bath Chair, Tub/Shower, Toilet/Riser [address] Self: Yes OT Current Status Subjective Pt sitting EOB after finishing with PT, agrees to therapy. Pt reports 9/10 pain in left knee. Mental Status/Objective Patient Orientation: Person, Place, Situation Attachments: IV, Oxygen Current Glasses/Contacts: Yes (reading) Hearing Aids: No Dentures/Partials: No Hand Dominance: Right Upper Extremity ROM mildly decreased left Shoulder ROM secondary to prior surgeries. Remainder grossly WFL Upper Extremity Coordination Intact Upper Extremity Sensation Intact per pt report ADL-Treatment ADL-Current Pt washed face and upper body with SBA while seated EOB. Pt donned underwear with minimal assistance to start over left foot. Stood with CGA for balance during pant hike using FWW for balance. Pt required assist to don gown only secondary to IV. Pt states she has reachers to use at home. States she will not wear socks around the house, but granddaughter will assist in donning socks if needed. Pt sidesteps to HOB with CGA. Sit to supine with assist for left LE. Pt resting in bed with needs met and CPM and polar pack in place after session. Functional [place] Measure 0=Not Assessed/NA 4=Minimal Assistance 1=Total Assistance 5=Supervision or Setup 2=Maximal Assistance 6=Modified [place] 3=Moderate Assistance 7=Complete IndependenceIRFPAI Quality Coding Scale 6 Independent with activity with or without an assistive device 5 Patient requires set up or clean up by helper. Patient completes activity by themselves 4 Supervision or touching assist (CGA). [place] provide cues , steadying assist 3 The helper provides less than half the effort to complete the activity 2 The helper provides more than half the effort to complete the activity 1 Dependent. The helper does all the effort to complete an activity 7 Patient refused to complete or attempt activity 9 The patient did not perform the activity before the current illness or injury 88 Not attempted due to Medical conditions or safety concerns Lower Body Dressing (FIM): 4 Transfers (B, C, W/C) (FIM): 4 Education OT Patient Education: Rehab process Teaching Recipient: Patient Teaching Methods: Discussion Response to Teaching: Verbalize Understanding OT Short Term Goals Short Term Goals Transfers (B,C,W/C) (FIM): 5 1=Demonstrate adherence to instructed precautions during ADL tasks. 2=Patient will verbalize/demonstrate understanding of assistive devices/ modifications for ADL. 3=Patient will improve strength/tolerance for activity to enable patient to perform ADL's. OT Supervisor [employer]ting [employer] Goals Prison Goals Time Frame: Dec 10, 2017 Bathing(FIM): 5 Upper Body Dressing(FIM): 6 Lower Body Dressing(FIM): 5 Toileting(FIM): 6 Toilet/Commode Transfer(FIM): 6 Additional Goals: 1-Demonstrate ADL Tasks, 2-Verbalize Understanding, 3- ImproveStrength/Christina 1=Demonstrate adherence to instructed precautions during ADL tasks. 2=Patient will verbalize/demonstrate understanding of assistive devices/ modifications for ADL. 3=Patient will improve strength/tolerance for activity to enable patient to perform ADL's. OT Education/Plan Problem List/Assessment Assessment: Dependent Transfers, Impaired Self-Care Skills Pt s/p left TKA. Pt to benefit from skilled OT intervention for ADL training, transfers, adaptive equipment training as needed, and home safety education to increase level of independence and allow safe return home. Discharge Recommendations Plan/Recommendations: Continue POC Treatment Plan/Plan of Care Treatment,Training & Education: Yes Patient would benefit from OT for education, treatment and training to promote independence in ADL's, mobility, safety and/or upper extremity function for ADL' s. Plan of Care: ADL Retraining, Functional Mobility Treatment Duration: Dec 10, 2017 Frequency: 5 times per week Estimated Hrs Per Day: .25 hour per day Agreement: Yes Rehab Potential: Fair Time/GCodes Start Time: 09:49 Stop Time: 10:13 Total Time Billed (hr/min): 24 Billed Treatment Time 1 visit, EVL(10minutes), ADL(14minutes) JOSE LUIS ORONA OT Dec 03, 2017 11:55
[2017-12-03 12:00] VITALS: BP 152/66
--- NOTE | 2017-12-03 14:31 | Physical Therapy Daily Note ---
PT Daily Note-Current Subjective Patient rates left knee pain 9/10 with RN issuing meds at this time. Pain Numeric Pain Scale: 9 Location: Left Location Body Site: Knee Pain Description: Acute Mental Status Patient Orientation: Normal For Age Attachments: IV Transfers Functional [place] Measure 0=Not Assessed/NA 4=Minimal Assistance 1=Total Assistance 5=Supervision or Setup 2=Maximal Assistance 6=Modified [place] 3=Moderate Assistance 7=Complete IndependenceIRFPAI Quality Coding Scale 6 Independent with activity with or without an assistive device 5 Patient requires set up or clean up by helper. Patient completes activity by themselves 4 Supervision or touching assist (CGA). [place] provide cues , steadying assist 3 The helper provides less than half the effort to complete the activity 2 The helper provides more than half the effort to complete the activity 1 Dependent. The helper does all the effort to complete an activity 7 Patient refused to complete or attempt activity 9 The patient did not perform the activity before the current illness or injury 88 Not attempted due to Medical conditions or safety concerns Transfers (B, C, W/C) (FIM): 5 Scootin Sit to/from Stand: 5 Weight Bearing Left Lower Extremity: Left Weight Bearing/Tolerated Gait Training Gait (FIM): 2 Distance (FIM): 5=887-68 ft Distance: 60' Gait Level of Assist: 5 Gait Assistive Device: FWW very slow, antalgic, minimal weight shifting and weight bearing left LE due to pain. Exercises Seated Therapy Exercises: Ankle pumps, Long arc quads Standing Reps: 15 (AAROM left LE) Assessment Patient requires time to complete all functional tasks. Patient demonstrates minimal left quad contraction and weight bearing. PT to increase activity as tolerated by patient. PT Short Term Goals Short Term Goals Time Frame: Dec 09, 2017 Transfers (B,C,W/C) (FIM): 5 Gait (FIM): 2 Gait Distance Comment: 70' Gait Level of Assist: 4 Gait Assistive Device: FWW PT Plan Treatment/Plan Treatment Plan: Continue Plan of Care Treatment Plan: Bed Mobility, Education, Functional Activity Christina, Functional Strength, Gait, Safety, Therapeutic Exercise, Transfers Treatment Duration: Dec 09, 2017 Frequency: 11 times per week Estimated Hrs Per Day: .25 hour per day (15-30') Patient and/or Family Agrees t: Yes Time/GCodes Time In: 1300 Time Out: 1324 Total Billed Treatment Time: 24 Total Billed Treatment 1 visit EX 10 min GT 14 min KALYN BURNHAM PT Dec 03, 2017 14:31
[2017-12-03 16:04] VITALS: BP 140/65
[2017-12-03 20:23] VITALS: BP 148/67
[2017-12-03] MEDS: GABAPENTIN 300 MG (NEURONTIN) CAP PO SCH (20:44)
[2017-12-03] MEDS: CYCLOBENZAPRINE 10 MG (FLEXERIL) TAB PO SCH (20:44)
[2017-12-04] VITALS: BP 141/64
[2017-12-04] MEDS: NS IV 1000 ML 1,000 ML IV SCH (00:01)
[2017-12-04] MEDS: oxyCODONE/APAP 5/325MG (PERCOCET 5) TABLET PO PRN ×8 (00:01→22:34)
[2017-12-04 04:00] VITALS: BP 175/76
[2017-12-04 04:15] VITALS: BP 154/68
[2017-12-04 04:27] LABS: HEMOGLOBIN 11.7 G/DL (11.5-16.0)
[2017-12-04] MEDS: MULTIVIT W/MINERALS TAB (THERAGRAN M) PO SCH (04:42)
[2017-12-04] MEDS: KCL 10 MEQ TAB (MICRO K) PO SCH (04:42)
--- NOTE | 2017-12-04 07:06 | Progress Note-Standard ---
Standard Progress Note Progress Notes/Assess & Plan Date Seen by Provider: Dec 04, 2017 Time Seen by Provider: 07:05 Progress/Assessment & Plan post op check No complaints radiographs--HW well positioned without fracture LLE--2 plus DP pulse with brisk cap refill. Intact sensation throughout. Intact DF and PF of toes and ankle s/p LTKA mobilize as able Final Diagnosis no complaints Vital Signs Date Time Temp Pulse Resp B/P (MAP) Pulse Ox O2 Delivery O2 Flow Rate FiO2 12/04/17 05:41 18 12/04/17 04:15 154/68 (96) 12/04/17 04:00 98.8 113 25 175/76 (109) 96 Room Air 1.00 12/04/17 02:16 99 Nasal Cannula 1.00 12/04/17 00:00 98.2 104 16 141/64 (89) 98 Room Air 1.00 12/03/17 22:25 99 Nasal Cannula 1.00 12/03/17 20:23 99.1 107 17 148/67 (94) 98 Room Air 1.00 12/03/17 20:00 Room Air 12/03/17 18:00 15 12/03/17 16:04 97.7 95 15 140/65 (90) 99 Nasal Cannula 1.00 12/03/17 12:00 97.3 96 25 152/66 (94) 99 Room Air 12/03/17 10:15 98 Nasal Cannula 2.00 12/03/17 08:00 98.4 104 18 136/64 (88) 98 Room Air 12/03/17 08:00 98 Nasal Cannula 1.50 I & O 12/04/17 07:00 Intake Total 2402 ml Output Total 96762 ml Balance -9348 ml Laboratory Tests Test 12/04/17 04:15 Range/Units Hemoglobin 11.7 11.5-16.0 G/DL Hematocrit 34 L 35-52 % LLE--incision clean and dry. No calf tenderness. neg Maryse's S/P ltka continue PT/OT SALOMÓN ADKINS MD Dec 04, 2017 07:06
[2017-12-04] MEDS ORDERED: fentaNYL INJECTION 100 MCG/2 ML AMP IVP PRN (07:15)
[2017-12-04] MEDS: ASPIRIN E.C. 81 MG (ECOTRIN) TAB PO SCH (07:40)
[2017-12-04] MEDS: ENOXAPARIN 30 MG/0.3 ML (LOVENOX) SYR SC SCH ×2 (07:40→20:10)
[2017-12-04] MEDS: SERTRALINE 50 MG (ZOLOFT) TABLET PO SCH (07:40)
[2017-12-04] MEDS: GABAPENTIN 100 MG (NEURONTIN) CAP PO SCH (07:40)
[2017-12-04] MEDS: meTOprolol TARTRATE 50 MG (LOPRESSOR) TAB PO SCH ×2 (07:40→20:10)
[2017-12-04] MEDS: HYDROCHLOROTHIAZIDE 25 MG (HCTZ) TAB PO SCH (07:40)
[2017-12-04] MEDS: MELOXICAM 7.5 MG (MOBIC) TABLET PO SCH (07:41)
[2017-12-04] MEDS: SENNA W/DOCUSATE (SENOKOT S) TABLET PO SCH ×2 (07:41→20:12)
--- NOTE | 2017-12-04 07:59 | Progress Note (SOAP) ---
Subjective Date Seen by Provider: Dec 04, 2017 Time Seen by Provider: 07:50 Subjective/Events-last exam Patient reports she slept better last night. She still is requiring pain medications every 2 hours. Plan is still for dismissal tomorrow. Objective Exam Vital Signs Date Time Temp Pulse Resp B/P (MAP) Pulse Ox O2 Delivery O2 Flow Rate FiO2 12/04/17 07:34 99 Nasal Cannula 2.00 12/04/17 05:41 18 12/04/17 04:15 154/68 (96) 12/04/17 04:00 98.8 113 25 175/76 (109) 96 Room Air 1.00 12/04/17 02:16 99 Nasal Cannula 1.00 12/04/17 00:00 98.2 104 16 141/64 (89) 98 Room Air 1.00 12/03/17 22:25 99 Nasal Cannula 1.00 12/03/17 20:23 99.1 107 17 148/67 (94) 98 Room Air 1.00 12/03/17 20:00 Room Air 12/03/17 18:00 15 12/03/17 16:04 97.7 95 15 140/65 (90) 99 Nasal Cannula 1.00 12/03/17 12:00 97.3 96 25 152/66 (94) 99 Room Air 12/03/17 10:15 98 Nasal Cannula 2.00 12/03/17 08:00 98.4 104 18 136/64 (88) 98 Room Air 12/03/17 08:00 98 Nasal Cannula 1.50 I & O 12/04/17 07:00 Intake Total 2402 ml Output Total 02469 ml Balance -9348 ml Capillary Refill : General Appearance: No Apparent Distress Neck: Non Tender Respiratory: Lungs Clear Cardiovascular: Regular Rate, Rhythm Extremity: Other (Left leg elevated) Results Lab Laboratory Tests 12/04/17 04:15: Hemoglobin 11.7, Hematocrit 34L Assessment/Plan Assessment/Plan Assess & Plan/Chief Complaint 1. Severe left knee osteoarthritis -Patient under care of orthopedics and has underwent left total knee arthroplasty -Orders written for pain management and physical therapy by orthopedics 2. Hypertension -We will maintain her hydrochlorothiazide along with potassium replacement. She is also on metoprolol 50 mg twice daily. 12/03 blood pressure medications read zoomed yesterday and she is stable 12/04 blood pressure remained stable 3. COPD -Have available albuterol if necessary by breathing treatments 12/03 stable 4. Osteoarthritis -She will be placed back on gabapentin since this is her home medication along with meloxicam. -Flexeril daily at bedtime Clinical Quality Measures DVT/VTE Risk/Contraindication: Risk Factor Score Per Nursin RFS Level Per Nursing on Admit: 4+=Very High DOMINGUEZ OLGUIN MD Dec 04, 2017 07:59
[2017-12-04 08:00] VITALS: BP 199/86
--- NOTE | 2017-12-04 09:06 | Physical Therapy Daily Note ---
PT Daily Note-Current Subjective Patient agrees to PT. Pain Numeric Pain Scale: 7 Location: Left Location Body Site: Knee Pain Description: Acute Mental Status Patient Orientation: Normal For Age Transfers Functional [place] Measure 0=Not Assessed/NA 4=Minimal Assistance 1=Total Assistance 5=Supervision or Setup 2=Maximal Assistance 6=Modified [place] 3=Moderate Assistance 7=Complete IndependenceIRFPAI Quality Coding Scale 6 Independent with activity with or without an assistive device 5 Patient requires set up or clean up by helper. Patient completes activity by themselves 4 Supervision or touching assist (CGA). [place] provide cues , steadying assist 3 The helper provides less than half the effort to complete the activity 2 The helper provides more than half the effort to complete the activity 1 Dependent. The helper does all the effort to complete an activity 7 Patient refused to complete or attempt activity 9 The patient did not perform the activity before the current illness or injury 88 Not attempted due to Medical conditions or safety concerns Transfers (B, C, W/C) (FIM): 6 Scootin Rollin Supine to/from Sit: 6 Sit to/from Stand: 6 Bed to/from Chair: 6 Weight Bearing Left Lower Extremity: Left Weight Bearing/Tolerated Gait Training Gait (FIM): 6 Distance (FIM): 3=150 ft Distance: 150' Gait Level of Assist: 6 Gait Assistive Device: FWW steady, functional, safe Exercises Supine Ex: Ankle pumps, Quad Set, Heel Slides, Straight leg raise Supine Reps: 15 Seated Therapy Exercises: Ankle pumps, Long arc quads Seated Reps: 15 Assessment Patient has been instructed to be up in room ad marilee to toilet and for exercise. Nursing notified. Patient is progressing with treatment plan and will dismiss to home tomorrow. PT Short Term Goals Short Term Goals Time Frame: Dec 09, 2017 Transfers (B,C,W/C) (FIM): 5 Gait (FIM): 2 Gait Distance Comment: 70' Gait Level of Assist: 4 Gait Assistive Device: FWW PT Plan Treatment/Plan Treatment Plan: Continue Plan of Care Treatment Plan: Bed Mobility, Education, Functional Activity Christina, Functional Strength, Gait, Safety, Therapeutic Exercise, Transfers Treatment Duration: Dec 09, 2017 Frequency: 11 times per week Estimated Hrs Per Day: .25 hour per day (15-30') Patient and/or Family Agrees t: Yes Time/GCodes Time In: 835 Time Out: 858 Total Billed Treatment Time: 23 Total Billed Treatment 1 visit EX 12 min GT 11 min KALYN BURNHAM PT Dec 04, 2017 09:06
--- NOTE | 2017-12-04 11:58 | Occupational Ther Daily Note ---
OT Current Status-Daily Note Subjective Pt sitting in chair, agrees to treatment. Pt reports 5/10 pain in left knee. Mental Status/Objective Functional [place] Measure 0=Not Assessed/NA 4=Minimal Assistance 1=Total Assistance 5=Supervision or Setup 2=Maximal Assistance 6=Modified [place] 3=Moderate Assistance 7=Complete [place] ADL-Treatment Pt states she has already cleaned up this morning, but would like to change gown and don underclothes. Declined to complete other dressing at this time. Pt donned bra with set up. Pt doffed/donned hospital gown with set up. Doffed underwear with SBA. Donned clean underwear with supervision and cues for technique. Stood with good balance during pant hike. Gait to restroom with FWW. Transfer to toilet using grab bar for safety. Pt states she needs to sit for awhile. Pt sitting on toilet with call light in reach, RN notified. Upper Body (FIM): 5 (bra only) Lower Body Dressing (FIM): 5 OT Short Term Goals Short Term Goals Transfers (B,C,W/C) (FIM): 5 1=Demonstrate adherence to instructed precautions during ADL tasks. 2=Patient will verbalize/demonstrate understanding of assistive devices/ modifications for ADL. 3=Patient will improve strength/tolerance for activity to enable patient to perform ADL's. OT Wall To Wall Carpet Installer Goals Wall To Wall Carpet Installer Goals Time Frame: Dec 10, 2017 Bathing(FIM): 5 Upper Body Dressing(FIM): 6 Lower Body Dressing(FIM): 5 Toileting(FIM): 6 Toilet/Commode Transfer(FIM): 6 Additional Goals: 1-Demonstrate ADL Tasks, 2-Verbalize Understanding, 3- ImproveStrength/Christina 1=Demonstrate adherence to instructed precautions during ADL tasks. 2=Patient will verbalize/demonstrate understanding of assistive devices/ modifications for ADL. 3=Patient will improve strength/tolerance for activity to enable patient to perform ADL's. OT Education/Plan Problem List/Assessment Pt s/p left TKA. Pt to benefit from skilled OT intervention for ADL training, transfers, adaptive equipment training as needed, and home safety education to increase level of independence and allow safe return home. Discharge Recommendations Plan/Recommendations: Continue POC Treatment Plan/Plan of Care Patient would benefit from OT for education, treatment and training to promote independence in ADL's, mobility, safety and/or upper extremity function for ADL' s. Plan of Care: ADL Retraining, Functional Mobility Treatment Duration: Dec 10, 2017 Frequency: 5 times per week Estimated Hrs Per Day: .25 hour per day Agreement: Yes Rehab Potential: Fair Time/GCodes Start Time: 11:20 Stop Time: 11:36 Total Time Billed (hr/min): 16 Billed Treatment Time 1 visit, ADL(16minutes) JOSE LUIS ORONA OT Dec 04, 2017 11:58
--- NOTE | 2017-12-04 14:14 | Physical Therapy Daily Note ---
PT Daily Note-Current Subjective Patient agrees to PT. Pain Numeric Pain Scale: 7 Location: Left Location Body Site: Knee Pain Description: Acute Comment: meds issued Mental Status Patient Orientation: Normal For Age Transfers Functional [place] Measure 0=Not Assessed/NA 4=Minimal Assistance 1=Total Assistance 5=Supervision or Setup 2=Maximal Assistance 6=Modified [place] 3=Moderate Assistance 7=Complete IndependenceIRFPAI Quality Coding Scale 6 Independent with activity with or without an assistive device 5 Patient requires set up or clean up by helper. Patient completes activity by themselves 4 Supervision or touching assist (CGA). [place] provide cues , steadying assist 3 The helper provides less than half the effort to complete the activity 2 The helper provides more than half the effort to complete the activity 1 Dependent. The helper does all the effort to complete an activity 7 Patient refused to complete or attempt activity 9 The patient did not perform the activity before the current illness or injury 88 Not attempted due to Medical conditions or safety concerns Transfers (B, C, W/C) (FIM): 6 Scootin Sit to/from Stand: 6 Weight Bearing Left Lower Extremity: Left Weight Bearing/Tolerated Gait Training Gait (FIM): 6 Distance (FIM): 3=150 ft Distance: 150' Gait Level of Assist: 6 Gait Assistive Device: FWW step to, antalgic Exercises Seated Therapy Exercises: Ankle pumps, Long arc quads Seated Reps: 15 (2 sets AAROM LAQ) Assessment Patient remains up in recliner with needs met. Plan dismissal in a.m. PT Short Term Goals Short Term Goals Time Frame: Dec 09, 2017 Transfers (B,C,W/C) (FIM): 5 Gait (FIM): 2 Gait Distance Comment: 70' Gait Level of Assist: 4 Gait Assistive Device: FWW PT Plan Treatment/Plan Treatment Plan: Continue Plan of Care Treatment Plan: Bed Mobility, Education, Functional Activity Christina, Functional Strength, Gait, Safety, Therapeutic Exercise, Transfers Treatment Duration: Dec 09, 2017 Frequency: 11 times per week Estimated Hrs Per Day: .25 hour per day (15-30') Patient and/or Family Agrees t: Yes Time/GCodes Time In: 1325 Time Out: 1350 Total Billed Treatment Time: 25 Total Billed Treatment 1 visit GT 15 min EX 10 min KALYN BURNHAM PT Dec 04, 2017 14:14
[2017-12-04 15:40] VITALS: BP 136/67
[2017-12-04] MEDS: CYCLOBENZAPRINE 10 MG (FLEXERIL) TAB PO SCH (20:10)
[2017-12-04] MEDS: GABAPENTIN 300 MG (NEURONTIN) CAP PO SCH (20:10)
[2017-12-05] VITALS: BP 116/65
[2017-12-05 05:59] LABS: HEMOGLOBIN 10.9 G/DL (11.5-16.0)
[2017-12-05] MEDS: MULTIVIT W/MINERALS TAB (THERAGRAN M) PO SCH (06:04)
[2017-12-05] MEDS: KCL 10 MEQ TAB (MICRO K) PO SCH (06:04)
[2017-12-05] MEDS: oxyCODONE/APAP 5/325MG (PERCOCET 5) TABLET PO PRN ×3 (06:04→10:56)
[2017-12-05 08:00] VITALS: BP 124/59
--- NOTE | 2017-12-05 08:32 | Physical Therapy Daily Note ---
PT Daily Note-Current Subjective States that she is doing okay and ready to go home. Transfers Functional [place] Measure 0=Not Assessed/NA 4=Minimal Assistance 1=Total Assistance 5=Supervision or Setup 2=Maximal Assistance 6=Modified [place] 3=Moderate Assistance 7=Complete IndependenceIRFPAI Quality Coding Scale 6 Independent with activity with or without an assistive device 5 Patient requires set up or clean up by helper. Patient completes activity by themselves 4 Supervision or touching assist (CGA). [place] provide cues , steadying assist 3 The helper provides less than half the effort to complete the activity 2 The helper provides more than half the effort to complete the activity 1 Dependent. The helper does all the effort to complete an activity 7 Patient refused to complete or attempt activity 9 The patient did not perform the activity before the current illness or injury 88 Not attempted due to Medical conditions or safety concerns Transfers (B, C, W/C) (FIM): 5 Scootin Rollin Supine to/from Sit: 5 Sit to/from Stand: 5 Weight Bearing Left Lower Extremity: Left Weight Bearing/Tolerated Gait Training Gait (FIM): 3 Distance (FIM): 3=150 ft Distance: 150 Gait Level of Assist: 5 Gait Persons Needed: 1 Gait Assistive Device: FWW Exercises Supine Ex: LE Protocol Supine Reps: 20 Assessment Current Status: Excellent Progress The patient is doing well and should be safe to be discharged home with home health. PT Short Term Goals Short Term Goals Time Frame: Dec 09, 2017 Transfers (B,C,W/C) (FIM): 5 Gait (FIM): 2 Gait Distance Comment: 70' Gait Level of Assist: 4 Gait Assistive Device: FWW PT Plan Treatment/Plan Treatment Plan: Continue Plan of Care Treatment Plan: Bed Mobility, Education, Functional Activity Christina, Functional Strength, Gait, Safety, Therapeutic Exercise, Transfers Treatment Duration: Dec 09, 2017 Frequency: 11 times per week Estimated Hrs Per Day: .25 hour per day (15-30') Patient and/or Family Agrees t: Yes Time/GCodes Time In: 800 Time Out: 825 Total Billed Treatment Time: 25 Total Billed Treatment 1, EX x 10, GT x 15 G Codes Necessary: KENIA Gallagher PT Dec 05, 2017 08:32
[2017-12-05] MEDS: HYDROCHLOROTHIAZIDE 25 MG (HCTZ) TAB PO SCH (08:50)
[2017-12-05] MEDS: meTOprolol TARTRATE 50 MG (LOPRESSOR) TAB PO SCH (08:50)
[2017-12-05] MEDS: ENOXAPARIN 30 MG/0.3 ML (LOVENOX) SYR SC SCH (08:50)
[2017-12-05] MEDS: SERTRALINE 50 MG (ZOLOFT) TABLET PO SCH (08:51)
[2017-12-05] MEDS: MELOXICAM 7.5 MG (MOBIC) TABLET PO SCH (08:51)
[2017-12-05] MEDS: ASPIRIN E.C. 81 MG (ECOTRIN) TAB PO SCH (08:51)
[2017-12-05] MEDS: GABAPENTIN 100 MG (NEURONTIN) CAP PO SCH (08:51)
[2017-12-05] MEDS: SENNA W/DOCUSATE (SENOKOT S) TABLET PO SCH (08:53)
--- NOTE | 2017-12-05 09:30 | Progress Note-Standard ---
Standard Progress Note Progress Notes/Assess & Plan Date Seen by Provider: Dec 05, 2017 Time Seen by Provider: 09:29 Progress/Assessment & Plan post op check No complaints radiographs--HW well positioned without fracture LLE--2 plus DP pulse with brisk cap refill. Intact sensation throughout. Intact DF and PF of toes and ankle s/p LTKA mobilize as able Final Diagnosis NO complaints Vital Signs Date Time Temp Pulse Resp B/P (MAP) Pulse Ox O2 Delivery O2 Flow Rate FiO2 12/05/17 08:00 99.9 119 22 124/59 (80) 91 Room Air 12/05/17 00:00 99.6 106 16 116/65 (82) 96 Room Air 12/04/17 19:44 93 Room Air 12/04/17 15:40 98.7 109 18 136/67 (90) 93 Room Air I & O 12/05/17 07:00 Intake Total 1888 ml Output Total 1500 ml Balance 388 ml Laboratory Tests Test 12/05/17 05:40 Range/Units Hemoglobin 10.9 L 11.5-16.0 G/DL Hematocrit 31 L 35-52 % LLE--dressing intact. No calf tenderness. Neg Maryse's s/p LTKA doing well DC home SALOMÓN ADKINS MD Dec 05, 2017 09:30
[2017-12-05 11:50] VITALS: BP 124/59
--- NOTE | 2017-12-05 18:53 | DISCHARGE SUMMARY ---
DATE OF SERVICE: DIAGNOSES: 1. Left knee primary osteoarthritis. 2. Hypertension. 3. Arthritis. 4. COPD. PROCEDURE: Left total knee arthroplasty. SUMMARY: The patient is a 67-year-old female, who was admitted the day of left total knee arthroplasty, which she underwent without complications. Postoperatively, she did well. At time of discharge, her wound was clean and dry. She had no calf tenderness. Negative Homans sign. She has active flexion to 80 degrees. She can perform a straight leg raise with assistance. She cleared physical therapy. She was tolerating diet well and tolerating pain with oral pain medication. CONDITION AT DISCHARGE: Good. DISCHARGE DIET: Regular. FOLLOWUP: Three weeks. Home physical therapy has been arranged. DISCHARGE MEDICATIONS: Home medications, Percocet and aspirin. Job ID: [id number] DocumentID: [id number] Dictated Date: 12/05/2017 09:32:14 Adult Specialist Date: 12/05/2017 18:52:20 Dictated By: SALOMÓN ADKINS MD
== END 2017-12-05 11:45 | disposition home health service (06) | DRG 470 ==
LOC: 4TH 08:30 → SURG 08:31 → 4TH 13:20
PROVIDERS: ADMIT Orthopaedic Surgery; ATTEND Orthopaedic Surgery
PROC: 0SRD0J9 Replacement of Left Knee Joint with Synthetic Substitute, Cemented, Open Approach (ICD-10-PCS; principal; 2017-12-02 10:28)
DX: M17.12 Unilateral primary osteoarthritis, left knee (principal); I10 Essential (primary) hypertension; J44.9 Chronic obstructive pulmonary disease, unspecified; G62.9 Polyneuropathy, unspecified; E66.9 Obesity, unspecified; K21.9 Gastro-esophageal reflux disease without esophagitis; J30.2 Other seasonal allergic rhinitis; K58.9 Irritable bowel syndrome, unspecified; K64.9 Unspecified hemorrhoids; Z68.38 Body mass index [BMI] 38.0-38.9, adult; Z87.891 Personal history of nicotine dependence; Z85.3 Personal history of malignant neoplasm of breast; Z86.718 Personal history of other venous thrombosis and embolism; Z85.828 Personal history of other malignant neoplasm of skin; Z90.10 Acquired absence of unspecified breast and nipple; Z96.651 Presence of right artificial knee joint; Z96.612 Presence of left artificial shoulder joint
CPT/HCPCS: 36415; 73560; 85014; 85018; 86850; 86900; 86901; 94664; 94760

== ENCOUNTER 2018-01-10 16:49 | Emergency (ER) | payer MEDICARE ==
[~2018-01-10] VITALS: Ht 160 cm; Wt 90.7 kg
--- OUTSIDE RECORDS SUMMARY | 2018-01-10 17:02 | XMS REPORT | Continuity of Care Document ---
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 ARTIFICIAL KNEE JOINT 01/08/2018 SALOMÓN ADKINS MD, Ot Z47.1 AFTERCARE FOLLOWING JOINT REPLACEMENT MARTÍNEZ 01/08/2018 SALOMÓN ADKINS MD, Ot Z96.652 PRESENCE OF LEFT ARTIFICIAL KNEE JOINT Procedures Code Description Performed By Performed On 85.41 UNILAT SIMPLE MASTECTOMY 06/03/2012 38.93 VENOUS CATHETERIZATION NEC 06/14/2012 86.3 OTHER LOCAL DESTRUC SKIN 06/17/2012 [id number] REPLACE OF R KNEE JT WITH SYNTH SUB, MANDY 07/11/2015 [id number] REPLACEMENT OF L SHOULDER JT WITH SYNTH 02/20/2016 [id number] REMOVAL OF SYNTH SUB FROM L SHOULDER JT, 04/02/2016 [id number] REPLACE L SHOULDER JT W SYNTH SUB, HUMER 04/02/2016 [id number] REPLACE OF L KNEE JT WITH SYNTH SUB, MANDY 12/02/2017 Results Test Result Range Whole blood hemoglobin and hematocrit panel - 04/04/16 05:45 Venous blood hemoglobin measurement (mass/volume) 9.4 g/dL 11.5-16.0 Blood hematocrit (volume fraction) 28 % 35-52 Complete blood count (CBC) with automated white blood cell (WBC) differential - 11/26/17 12:15 Blood leukocytes automated count (number/volume) 4.4 10*3/uL 4.3-11.0 Blood erythrocytes automated count (number/volume) 4.33 10*6/uL 4.35-5.85 Venous blood hemoglobin measurement (mass/volume) 13.3 g/dL 11.5-16.0 Blood hematocrit (volume fraction) 38 % 35-52 Automated erythrocyte mean corpuscular volume 87 [foz_us] 80-99 Automated erythrocyte mean corpuscular hemoglobin (mass per erythrocyte) 31 pg 25-34 Automated erythrocyte mean corpuscular hemoglobin concentration measurement ( mass/volume) 35 g/dL 32-36 Automated erythrocyte distribution width ratio 13.0 % 10.0-14.5 Automated blood platelet count (count/volume) 202 10*3/uL 130-400 Automated blood platelet mean volume measurement 10.4 [foz_us] 7.4-10.4 Automated blood neutrophils/100 leukocytes 53 % 42-75 Automated blood lymphocytes/100 leukocytes 33 % 12-44 Blood monocytes/100 leukocytes 11 % 0-12 Automated blood eosinophils/100 leukocytes 3 % 0-10 Automated blood basophils/100 leukocytes 0 % 0-10 Blood neutrophils automated count (number/volume) 2.3 10*3 1.8-7.8 Blood lymphocytes automated count (number/volume) 1.4 10*3 1.0-4.0 Blood monocytes automated count (number/volume) 0.5 10*3 0.0-1.0 Automated eosinophil count 0.1 10*3/uL 0.0-0.3 Automated blood basophil count (count/volume) 0.0 10*3/uL 0.0-0.1 Complete urinalysis with reflex to culture - 11/26/17 12:15 Urine color determination YELLOW NRG Urine clarity determination CLEAR NRG Urine pH measurement by test strip 8 5-9 Specific gravity of urine by test strip 1.010 1.016- 1.022 Urine protein assay by test strip, semi-quantitative NEGATIVE NEGATIVE Urine glucose detection by automated test strip NEGATIVE NEGATIVE Erythrocytes detection in urine sediment by light microscopy NEGATIVE NEGATIVE Urine ketones detection by automated test strip NEGATIVE NEGATIVE Urine nitrite detection by test strip NEGATIVE NEGATIVE Urine total bilirubin detection by test strip NEGATIVE NEGATIVE Urine urobilinogen measurement by automated test strip (mass/volume) NORMAL NORMAL Urine leukocyte esterase detection by dipstick 1+ NEGATIVE Automated urine sediment erythrocyte count by microscopy (number/high power field) NONE NRG Automated urine sediment leukocyte count by microscopy (number/high power field ) [HPF] NRG Bacteria detection in urine sediment by light microscopy TRACE NRG Squamous epithelial cells detection in urine sediment by light microscopy 0-2 NRG Crystals detection in urine sediment by light microscopy NONE NRG Casts detection in urine sediment by light microscopy NONE NRG Mucus detection in urine sediment by light microscopy NEGATIVE NRG Complete urinalysis with reflex to culture YES NRG PT panel in platelet poor plasma by coagulation assay - 11/26/17 12:15 Prothrombin time (PT) in platelet poor plasma by coagulation assay 12.9 s 12.2-14.7 INR in platelet poor plasma or blood by coagulation assay 1.0 0.8-1.4 Comprehensive metabolic panel - 11/26/17 12:15 Serum or plasma sodium measurement (moles/volume) 142 mmol/L 135-145 Serum or plasma potassium measurement (moles/volume) 3.7 mmol/L 3.6-5.0 Serum or plasma chloride measurement (moles/volume) 106 mmol/L 98-107 Carbon dioxide 30 mmol/L 21-32 Serum or plasma anion gap determination (moles/volume) 6 mmol/L 5-14 Serum or plasma urea nitrogen measurement (mass/volume) 14 mg/dL 7-18 Serum or plasma creatinine measurement (mass/volume) 0.71 mg/dL 0.60-1.30 Serum or plasma urea nitrogen/creatinine mass ratio 20 NRG Serum or plasma creatinine measurement with calculation of estimated glomerular filtration rate > NRG Serum or plasma glucose measurement (mass/volume) 100 mg/dL 70-105 Serum or plasma calcium measurement (mass/volume) 9.5 mg/dL 8.5-10.1 Serum or plasma total bilirubin measurement (mass/volume) 0.4 mg/dL 0.1-1.0 Serum or plasma alkaline phosphatase measurement (enzymatic activity/volume) 121 U/L 40-136 Serum or plasma aspartate aminotransferase measurement (enzymatic activity/ volume) 34 U/L 5-34 Serum or plasma alanine aminotransferase measurement (enzymatic activity/volume ) 30 U/L 0-55 Serum or plasma protein measurement (mass/volume) 6.7 g/dL 6.4-8.2 Serum or plasma albumin measurement (mass/volume) 3.8 g/dL 3.2-4.5 Erythrocyte sedimentation rate by westergren method - 11/26/17 12:15 Erythrocyte sedimentation rate by westergren method 46 mm 0-30 Blood type T Indirect antibody screen panel - 11/26/17 12:15 ABO+Rh group OP NRG Blood group antibody screen NEGATIVE NRG Bacterial urine culture - 11/26/17 12:15 Bacterial urine culture [id number] NRG COLONY COUNT <10,000 NRG FTX;REPORTABLE SENSITIVITY REPORTED 11/27/17 16:35 NRG URINE CULTURE RESULTS PLUS NRG Methicillin resistant Staphylococcus aureus (MRSA) screening culture - 12:15 Methicillin resistant Staphylococcus aureus (MRSA) screening culture NEG NRG Bacterial susceptibility panel - 11/26/17 12:15 Gentamicin susceptibility test by minimum inhibitory concentration > = NRG Trimethoprim/sulfamethoxazole susceptibility test by minimum inhibitoryconcentration R NRG Ampicillin susceptibility test by minimum inhibitory concentration > = NRG Tobramycin susceptibility test by minimum inhibitory concentration 8 NRG Cefazolin susceptibility test by minimum inhibitory concentration < = NRG Ceftriaxone susceptibility test by minimum inhibitory concentration <= NRG Ampicillin/sulbactam susceptibility test by minimum inhibitory concentration R NRG Piperacillin/tazobactam susceptibility test by minimum inhibitory concentration S NRG Ciprofloxacin susceptibility test by minimum inhibitory concentration <= NRG Meropenem susceptibility test by minimum inhibitory concentration < = NRG Nitrofurantoin susceptibility test by minimum inhibitory concentration <= NRG Aztreonam susceptibility test by minimum inhibitory concentration < = NRG Extended spectrum beta lactamase (ESBL) producing bacteria susceptibility test by minimum inhibitory concentration - NRG Blood type T Indirect antibody screen panel - 12/02/17 08:52 ABO+Rh group OP NRG Transfusion band number [id number] NRG Blood group antibody screen NEGATIVE NRG Whole blood hemoglobin and hematocrit panel - 12/03/17 05:56 Venous blood hemoglobin measurement (mass/volume) 11.3 g/dL 11.5-16.0 Blood hematocrit (volume fraction) 32 % 35-52 Whole blood hemoglobin and hematocrit panel - 12/04/17 04:15 Venous blood hemoglobin measurement (mass/volume) 11.7 g/dL 11.5-16.0 Blood hematocrit (volume fraction) 34 % 35-52 Whole blood hemoglobin and hematocrit panel - 12/05/17 05:40 Venous blood hemoglobin measurement (mass/volume) 10.9 g/dL 11.5-16.0 Blood hematocrit (volume fraction) 31 % 35-52 Encounters ACCT No. Visit Date/Time Discharge Status Pt. Type Provider Facility Loc./Unit Complaint [id number] 12/24/2017 00:11:00 12/24/2017 23:59:59 CLS Preadmit CHEIKH KNIGHT [facility] ONC [id number] 11/02/2017 13:36:00 12/23/2017 00:01:00 DIS Outpatient CHEIKH KNIGHT [facility] ONC [id number] 12/02/2017 08:30:00 12/05/2017 11:45:00 DIS Inpatient SALOMÓN ADKINS MD [facility] 4TH OSTEOARTHRITIS LEFT KNEE [id number] 11/26/2017 11:26:00 11/26/2017 23:59:59 CLS Outpatient SALOMÓN ADKINS MD [facility] PREOP OSTEOARTHRITIS LEFT KNEE [id number] 11/17/2017 14:52:00 11/17/2017 23:59:59 CLS Outpatient DOMINGUEZ OLGUIN MD [facility] CARD PRE OP LT KNEE ARTHOROPLASTY [id number] 10/22/2017 05:47:00 10/22/2017 09:10:00 DIS Outpatient ARCELIA RODRIGUEZ MD [facility] ENDO IRREGULAR BOWEL MOVEMENTS [id number] 10/15/2017 05:42:00 10/15/2017 15:01:00 DIS Outpatient ARCELIA RODRIGUEZ MD [facility] PREOP COLONOSCOPY [id number] 09/28/2017 15:05:00 09/28/2017 23:59:59 CLS Outpatient DOMINGUEZ OLGUIN MD [facility] RAD SCREENING MAMMOGRAM [id number] 12/11/2016 14:51:00 12/11/2016 15:08:00 DIS Outpatient SALOÓMN ADKINS MD [facility] REHAB SHOULDER SURGERY [id number] 12/05/2016 14:50:00 12/10/2016 00:01:00 DIS Outpatient SALOMÓN ADKINS MD [facility] REHAB SHOULDER SURGERY [id number] 07/28/2016 12:50:00 10/26/2016 00:01:00 DIS Outpatient CHEIKH KNIGHT [facility] ONC [id number] 08/25/2016 15:00:00 09/09/2016 00:01:00 DIS Outpatient SALOMÓN ADKINS MD [facility] REHAB SHOULDER SURGERY [id number] 08/07/2016 14:14:00 08/07/2016 23:59:59 CLS Outpatient TRINO JAIME [facility] RAD SCREENING [id number] 06/04/2016 14:41:00 06/06/2016 17:00:00 DIS [facility] [id number] 05/28/2016 11:16:00 05/28/2016 00:01:00 DIS Outpatient SALOMÓN ADKINS MD [facility] REHAB SHOULDER SURGERY [id number] 05/09/2016 15:46:00 05/09/2016 23:59:59 CLS Outpatient COLTHARP ISAURO MAYA [facility] QUICK [id number] 04/02/2016 08:42:00 04/04/2016 12:00:00 DIS Inpatient SALOMÓN ADKINS MD [facility] 4TH LEFT TOTAL SHOULDER DISPLACED GLENOID COMP [id number] 04/01/2016 12:31:00 04/01/2016 13:42:00 DIS Outpatient SALOMÓN ADKINS MD [facility] PREOP LEFT TOTAL SHOULDER DISPLACED GLENOID COM [id number] 03/27/2016 15:32:00 03/27/2016 23:59:59 CLS Outpatient SALOMÓN ADKINS MD [facility] RAD DISPLACED GLENOID COMPONENT [id number] 02/23/2016 11:42:00 02/23/2016 15:21:00 DIS Emergency KRISTIE ESPARZA MD [facility] ER POST SURGERY SWOLLEN LEFT ARM [id number] 02/20/2016 06:00:00 02/21/2016 17:40:00 DIS Inpatient SALOMÓN ADKINS MD [facility] 4TH OSTEOARTHRITIS LT.SHOULDER [id number] 02/13/2016 08:59:00 02/13/2016 13:08:00 DIS Outpatient SALOMÓN ADKINS MD [facility] PREOP TOTAL LEFT SHOULDER [id number] 12/21/2015 00:09:00 12/21/2015 23:59:59 CLS Preadmit SALOMÓN ADKINS MD [facility] REHAB [id number] 12/03/2015 13:45:00 12/20/2015 00:01:00 DIS Outpatient SALOMÓN ADKINS MD [facility] REHAB L SHOULDER SCOPE;L RC SPRAIN [id number] 09/19/2015 08:11:00 09/19/2015 12:35:00 DIS Outpatient SALOMÓN ADKINS MD [facility] SDC LEFT TORN ROTATOR CUFF [id number] 09/13/2015 08:56:00 09/13/2015 23:59:59 CLS Outpatient SALOMÓN ADKINS MD [facility] PREOP LEFT OPEN ROTATOR CUFF [id number] 09/13/2015 13:00:00 09/13/2015 13:32:00 DIS Outpatient SALOMÓN ADKINS MD [facility] REHAB S/P R TKR [id number] 09/12/2015 08:39:00 09/12/2015 23:59:59 CLS Outpatient SALOMÓN ADKINS MD [facility] RAD LUMBAR RADICULOPATHY [id number] 06/11/2015 13:30:00 09/09/2015 00:01:00 DIS Outpatient CHEIKH KNIGHT [facility] ONC [id number] 08/06/2015 13:59:00 08/06/2015 23:59:59 CLS Outpatient CHEIKH KNIGHT [facility] RAD SCREENING [id number] 07/11/2015 05:51:00 07/14/2015 11:10:00 DIS Inpatient SALOMÓN ADKINS MD [facility] 4TH RIGHT KNEE OSTEOARTHRITIS [id number] 07/06/2015 08:20:00 07/06/2015 23:59:59 CLS Outpatient ISAURO HIGHTOWER MD [facility] RAD ABNORMAL XRAY,NODULAR CAPACITY [id number] 07/04/2015 10:22:00 07/04/2015 23:59:59 CLS Outpatient SALOMÓN ADKINS MD [facility] PREOP RIGHT KNEE OSTEOARTHRITIS [id number] 06/11/2015 14:58:00 06/11/2015 23:59:59 CLS Outpatient SALOMÓN ADKINS MD [facility] RAD DJD [id number] 05/02/2015 10:31:00 05/02/2015 12:00:00 DIS Outpatient SALOMÓN KAM MD [facility] WOUNDCARE [id number] 04/18/2015 13:37:00 04/18/2015 15:07:00 DIS Emergency TYRONE MEANS APRN [facility] ER FALL/FACIAL INJURY [id number] 07/21/2014 13:15:00 07/21/2014 14:00:00 DIS Outpatient ISAURO HGIHTOWER MD [facility] WOUNDCARE VENOUS ULCER, LEFT ANKLE [id number] 07/13/2014 14:54:00 07/13/2014 23:59:59 CLS Outpatient TRINO JAIME 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 [facility] RAD SCREENING [id number] 06/07/2014 13:53:00 06/07/2014 23:59:59 CLS Outpatient TRINO JAIME 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 [facility] ONC [id number] 05/15/2014 18:22:00 05/15/2014 23:59:59 CLS Outpatient ISAURO HIGHTOWER MD [facility] 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, 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 MED 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, HTN [id number] 05/12/2013 16:34:00 05/18/2013 00:01:00 DIS Outpatient CHEIKH KNIGHT Shad [facility] ONC [id number] 03/04/2013 06:45:00 03/04/2013 23:59:59 CLS Outpatient TRINO JAIME 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 [facility] RAD SCREENING [id number] 03/04/2013 06:43:00 03/04/2013 10:45:00 DIS Outpatient RODDY KHALIL MD [facility] SDC HEMATOCHEZIA [id number] 03/03/2013 08:04:00 03/03/2013 23:59:59 CLS Outpatient RODDY KHALIL MD [facility] PREOP HEMATOCHEZIA [id number] 01/31/2013 18:44:00 01/31/2013 23:59:59 CLS Outpatient [id number] 01/08/2018 13:43:00 ACT Outpatient SALOMÓN ADKINS MD [facility] REHAB S/P L TKR [id number] 11/15/2014 14:40:00 Document Registration [id number] 05/23/2014 10:40:00 Document Registration [id number] 09/07/2012 14:19:00 Document Registration [id number] 08/23/2012 14:07:00 Document Registration [id number] 06/28/2012 14:26:00 Document Registration [id number] 06/14/2012 11:40:00 Document Registration [id number] 06/03/2012 05:30:00 Document Registration [id number] 05/28/2012 13:38:00 Document Registration [id number] 05/19/2012 12:53:00 Document Registration [id number] 04/12/2012 15:03:00 Document Registration [id number] 12/10/2011 13:37:00 Document Registration [id number] 10/06/2011 15:05:00 Document Registration [id number] 07/06/2011 16:40:00 Document Registration [id number] 03/04/2011 15:56:00 Document Registration [id number] 02/17/2011 13:10:00 Document Registration [id number] 11/20/2010 13:07:00 Document Registration [id number] 06/12/2015 07:05:59 ACT Document Registration
--- NOTE | 2018-01-10 17:20 | ED Fall/Injury ---
General Chief Complaint: Trauma-Non Activation Stated Complaint: LEFT LEG AND RIGHT HAND PAIN,FELL Nursing Triage Note: ARRIVED VIA WC TO ROOM 05. STATES SHE TRIPPED UP A STAIR CAUSING PAIN IN HER LEFT KNEE, HIP, AND RIGHT HAND. DENIES LOC OR HITTING HER HEAD. Source: patient, family (daughter and granddaughter) Exam Limitations: no limitations History of Present Illness Date Seen by Provider: January 10, 2018 Time Seen by Provider: 17:01 Initial Comments The patient presents to the ER by private conveyance with a chief complaint that just prior to arrival she was out in the yard walking up her steps and her left knee that she just had replaced about 2 months ago on January 02 gave out on her. She does not think she felt a pop or heard any noise but just was very weak with it and she fell backwards onto her right side rolling down the stairs. She's not having any pain anywhere except for her right wrist where she has a hematoma there was bleeding a little bit and dressed by nursing with a pressure dressing. She has mild pain in her left knee as well as chronic pain in her left shoulder. She denies hitting her head or loss of consciousness. She is on aspirin 81 mg daily. She has no history of coronary artery disease. Occurred: just prior to arrival Allergies and Home Medications Allergies Coded Allergies: codeine (Verified Allergy, Mild, HALLUCINATION, 02/13/16) morphine (Unverified Allergy, Mild, SKIN WAS BLOTCHY AND PINK., 04/02/16) Home Medications Aspirin 81 Mg Tab.chew, 81 MG PO DAILY, (Reported) Biotin 1,000 Mcg Tablet, 1,000 MCG PO DAILY, (Reported) Cholecalciferol (Vitamin D3) 5,000 Unit Capsule, 5,000 UNIT PO DAILY, (Reported) Cyanocobalamin (Vitamin B-12) 1,000 Mcg Tablet, 2,500 MCG PO DAILY, (Reported) Cyclobenzaprine HCl 10 Mg Tablet, 10 MG PO HS, (Reported) Gabapentin 300 Mg Capsule, 300 MG PO HS, (Reported) Gabapentin 100 Mg Capsule, 100 MG PO DAILY, (Reported) Hydrochlorothiazide 25 Mg Tablet, 25 MG PO DAILY, (Reported) Krill Oil 500 Mg Capsule, 500 MG PO DAILY, (Reported) L.acidoph & Paracasei,B.lactis 1 Each Capsule, 1 CAP PO DAILY, (Reported) Meloxicam 15 Mg Tablet, 15 MG PO DAILY, (Reported) Metoprolol Tartrate 50 Mg Tablet, 50 MG PO BID, (Reported) Multivitamin 1 Each Tablet, 1 TAB PO DAILY, (Reported) Oxycodone HCl/Acetaminophen 1 Each Tablet, 1 EACH PO Q4H Prescribed by: SALOMÓN ADKINS on 12/02/17 0950 Potassium Chloride 10 Meq Tab.er.prt, 10 MEQ PO DAILY, (Reported) Sertraline HCl 50 Mg Tablet, 50 MG PO DAILY, (Reported) Patient Home Medication List Home Medication List Reviewed: Yes Review of Systems Constitutional: No chills, No diaphoresis Eyes: Denies Blindness, Denies Blurred Vision Ears, Nose, Mouth, Throat: denies ear pain, denies ear discharge Respiratory: No cough, No short of breath Cardiovascular: No chest pain, No edema, No Hx of Intervention, No palpitations , No syncope, No vascular heart diseas Gastrointestinal: No abdominal pain, No constipation, No diarrhea, No nausea Genitourinary: No discharge, No dysuria : No Musculoskeletal: No back pain; joint pain (right wrist and left knee) Skin: No pruritus, No rash Past Yzfmzmo-Gebxty-Nzyonx Hx Patient Social History Alcohol Use: Denies Use Recreational Drug Use: No Smoking Status: Former Smoker Type Used: Cigarettes Former Smoker, Quit: Apr 01, 1985 Recent Foreign Travel: No Contact w/Someone Who Travel: No Recent Infectious Disease Expo: No Recent Hopitalizations: Yes Immunizations Up To Date Date of Pneumonia Vaccine: Jul 14, 2015 Date of Influenza Vaccine: Jul 04, 2017 Seasonal Allergies Seasonal Allergies: Yes Past Medical History Surgeries: Yes (SHOULDER SHOULDER X3, LIVER SURGERY-CYSTS, ) Abdominal, Orthopedic, Vascular Surgery Respiratory: Yes (EASILY GETS PNEUMONIA/BRONCHITIS FROM PAST SMOKING) COPD Cardiac: Yes Deep Vein Thrombosis, Hypertension Neurological: Yes Neuropathy Reproductive Disorders: No (PAGETS DISEASE) Female Reproductive Disorders: Denies Sexually Transmitted Disease: No HIV/AIDS: No Genitourinary: No Gastrointestinal: Yes Hemorrhoids, Irritable Bowel Musculoskeletal: Yes Arthritis Endocrine: No HEENT: Yes (READING GLASSES) Loss of Vision: Bilateral Hearing Impairment: Denies Cancer: Yes (PAGETS DISEASE) Skin, Breast What Type of Treatment Did You: Surgical Intervention Psychosocial: Yes (TAKES ANTIDEPRESSANT FOR ARTHRITIS) Integumentary: No Blood Disorders: No Adverse Reaction/Blood Tranf: No (HAS HAD BLOOD WITH NO REACTION) Family Medical History Diabetes mellitus 19 FATHER FH: brain tumor 19 MOTHER Hypertension 19 FATHER Physical Exam Vital Signs Vital Signs - First Documented 01/10/18 16:58 Temp 98.0 Pulse 95 Resp 18 B/P (MAP) 144/95 (111) Pulse Ox 96 Capillary Refill : Less Than 3 Seconds General Appearance: WD/WN, no apparent distress HEENT: PERRL/EOMI, normal ENT inspection, TMs normal, pharynx normal, other ( negative for hemotympanum, quispe sign, raccoon eyes.) Neck: non-tender, full range of motion, supple, normal inspection Cardiovascular: normal peripheral pulses, regular rate, rhythm, no gallop Respiratory: chest non-tender, lungs clear, normal breath sounds, no respiratory distress, no accessory muscle use Peripheral Pulses: 2+ Dorsalis Pedis (R), 2+ Left Dors-Pedis (L), 2+ Radial Pulses (R), 2+ Radial Pulses (L) Gastrointestinal: normal bowel sounds, non tender, soft Back: normal inspection, no vertebral tenderness Extremities: normal range of motion, normal capillary refill, other (2 cm hematoma over the right wrist. Mild tenderness to palpation. No tenderness over the anatomic snuffbox. Range of motion is complete. Left knee mildly tender to palpation all over with well healed scar no joint effusion significant and no ecchymoses or abrasion.) Neurologic/Psychiatric: no motor/sensory deficits, alert, normal mood/affect, oriented x 3 [place] Coma Score Best Eye Response: (4) Open Spontaneously Best Verbal Response: (5) Oriented Best Motor Response: (6) Obeys Commands Munir Total: 15 Progress/Results/Core Measures Results/Orders My Orders Orders - EDITA IRCO Wrist, Right, 3 Views Or More (01/10/18 17:16) Knee, Left, 3 Views (01/10/18 17:16) Ketorolac Injection (Toradol Injection) (01/10/18 17:30) Ct Head Wo (01/10/18 17:16) Vital Signs/I&O 01/10/18 16:58 Temp 98.0 Pulse 95 Resp 18 B/P (MAP) 144/95 (111) Pulse Ox 96 Blood Pressure Mean: 111 Diagnostic Imaging Diagonstic Imaging: Xray Plain Films/CT/US/NM/MRI: other (rigth wrist) Comments No acute osseous abnormality. Chronic degenerative changes seen. Reviewed: Reviewed by Me Diagonstic Imaging: Xray Plain Films/CT/US/NM/MRI: knee (left) Comments No acute osseous abnormality. Hardware in good position. Reviewed: Reviewed by Me Diagonstic Imaging: CT Plain Films/CT/US/NM/MRI: head (c/o) Comments [facility]IA [facility]. [place], [place] NAME: CONSTANT[facility] REC#: [id number] PT STATUS: REG ER : 1950 PHYSICIAN: EDITA RICO MD ADMIT DATE: 01/10/18/ER Draft Date of Exam:01/10/18 CT HEAD WO PROCEDURE: CT head without contrast. TECHNIQUE: Multiple contiguous axial images were obtained through the brain without the use of intravenous contrast. INDICATION: Fall two hours ago striking the head. Now dizzy. COMPARISON: 04/18/2015. FINDINGS: There is no intracranial hemorrhage. No hydrocephalus, edema, mass or mass effect. There are no abnormal extra-axial fluid collections. The basilar cisterns are patent. The sulci are non-effaced. The orbits, sinuses and calvarium are within normal limits. No mass or mass effect. IMPRESSION: Unremarkable CT head. Dictated on workstation # [id number] Dict: 01/10/18 1736 Trans: 01/10/18 1743 [facility] [id number] Interpreted by: KARINA CARMEN Electronically signed by: Reviewed: Reviewed by Me Departure Impression Primary Impression: Fall Qualified Codes: W19.XXXA - Unspecified fall, initial encounter Additional Impressions: Knee pain, left Qualified Codes: M25.562 - Pain in left knee Hematoma Wrist pain, acute Qualified Codes: M25.532 - Pain in left wrist Disposition: 01 HOME, SELF-CARE Condition: Stable Departure-Patient Inst. Decision time for Depature: 17:56 Referrals: DOMINGUEZ OLGUIN MD (PCP) Primary Care Physician Patient Instructions: Wrist Sprain (DC) Add. Discharge Instructions: You may apply ice for 20 minutes every 4 hours for the first 3 days to your wrist or knee for pain. You can use Tylenol as well as Motrin for your pain. If you have swelling keep it elevated above the level of your heart and use a compression wrap such as an [place] bandage as needed. If your pain in her wrist does not improve by day 7-10 you should follow-up with either your primary care doctor or with your orthopedic surgeon to have it reexamined for possible missed fracture. All discharge instructions reviewed with patient and/or family. Voiced understanding. Copy Copies To 1: DOMINGUEZ OLGUIN MD, TITUS J January 10, 2018 17:20
[2018-01-10] MEDS ORDERED: KETOROLAC 30 MG/ML VIAL IM ONE (17:30)
--- NOTE | 2018-01-10 17:44 | Diagnostic Imaging Report ---
PROCEDURE: CT head without contrast. TECHNIQUE: Multiple contiguous axial images were obtained through the brain without the use of intravenous contrast. INDICATION: Fall two hours ago striking the head. Now dizzy. COMPARISON: 04/18/2015. FINDINGS: There is no intracranial hemorrhage. No hydrocephalus, edema, mass or mass effect. There are no abnormal extra-axial fluid collections. The basilar cisterns are patent. The sulci are non-effaced. The orbits, sinuses and calvarium are within normal limits. No mass or mass effect. IMPRESSION: Unremarkable CT head. Dictated by: Dictated on workstation # [id number]
--- NOTE | 2018-01-10 18:05 | Diagnostic Imaging Report ---
INDICATION: Injury with pain. EXAMINATION: Three views of the left knee were obtained. FINDINGS: Total knee arthroplasty has been performed. No hardware or osseous fracture. No acute finding. IMPRESSION: Knee replacement with no acute abnormality identified. Dictated by: Dictated on workstation # [id number]
--- NOTE | 2018-01-10 18:09 | Diagnostic Imaging Report ---
INDICATION: Injury with pain. EXAMINATION: Multiple views of the right wrist were obtained. FINDINGS: There is what is likely an old avulsion off the tip of the ulnar styloid. A well-corticated bony density without adjacent swelling measures about 4 mm diameter. There are arthritic changes greatest at the radial margin of the wrist without fracture or dislocation. No erosion. 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 Dictated by: Dictated on workstation # [id number]
[2018-01-10 18:16] VITALS: BP 125/86
== END 2018-01-10 18:16 | disposition home or self-care (01) ==
LOC: EDUNIT# 16:49 → ER 16:51
DX: S60.211A Contusion of right wrist, initial encounter (principal); M25.562 Pain in left knee; J44.9 Chronic obstructive pulmonary disease, unspecified; I10 Essential (primary) hypertension; G62.9 Polyneuropathy, unspecified; Z87.19 Personal history of other diseases of the digestive system; Z85.3 Personal history of malignant neoplasm of breast; Z85.828 Personal history of other malignant neoplasm of skin; Z86.718 Personal history of other venous thrombosis and embolism; Z98.890 Other specified postprocedural states; Z87.891 Personal history of nicotine dependence; Z96.652 Presence of left artificial knee joint; Z79.82 Long term (current) use of aspirin; Z88.5 Allergy status to narcotic agent; W10.9XXA Fall (on) (from) unspecified stairs and steps, initial encounter
CPT/HCPCS: 70450; 73110; 73562; 96372

== ENCOUNTER 2018-02-08 15:36 | Outpatient (RCR) | payer MEDICARE, OTHER ==
[~2018-02-08 15:36] MED LIST changes: +HYDR-4226 PO; -HYDR-757 PO; -OXYC-197 PO; +OXYC1TAB87 PO
[2018-02-08 16:24] LABS: ALANINE AMINOTRANSFERASE 46 U/L (0-55); ALBUMIN 4.4 GM/DL (3.2-4.5); ALKALINE PHOSPHATASE 220 U/L (40-136); BILIRUBIN,TOTAL 0.6 MG/DL (0.1-1.0); BUN/CREATININE RATIO 19; CALCIUM 10.4 MG/DL (8.5-10.1); CARBON DIOXIDE 26 MMOL/L (21-32); CHLORIDE 104 MMOL/L (98-107); CREATININE SERUM 0.69 MG/DL (0.60-1.30); GFR ESTIMATED > 60; GLUCOSE 90 MG/DL (70-105); POTASSIUM 4.1 MMOL/L (3.6-5.0); SODIUM 142 MMOL/L (135-145); TOTAL PROTEIN 8.2 GM/DL (6.4-8.2)
== END 2018-05-09 | disposition home or self-care (01) ==
LOC: ONC 15:36
PROVIDERS: ATTEND Internal Medicine Hematology & Oncology
DX: C50.012 Malignant neoplasm of nipple and areola, left female breast (principal); M06.9 Rheumatoid arthritis, unspecified; R19.8 Other specified symptoms and signs involving the digestive system and abdomen; R10.12 Left upper quadrant pain; I10 Essential (primary) hypertension; F32.9 Major depressive disorder, single episode, unspecified; E66.9 Obesity, unspecified; Z68.38 Body mass index [BMI] 38.0-38.9, adult; Z86.711 Personal history of pulmonary embolism; Z86.718 Personal history of other venous thrombosis and embolism; Z79.82 Long term (current) use of aspirin; Z79.899 Other long term (current) drug therapy
CPT/HCPCS: 80053

== ENCOUNTER → 2018-03-08 | Outpatient (CLI) | payer MEDICARE ==
[~2018-03-08] MED LIST changes: -HYDR-4226 PO; +HYDR-757 PO; +IOHEXOL 350 MG/ML 100 ML (OMNIPAQUE 350) VIAL IV ONE; +NS 250 ML (IVPB) BAG IV ONE; +OXYC-197 PO; -OXYC1TAB87 PO
[2018-03-08] MEDS: CATHETER FLUSH 10 ML SYR IV PRN ×2 (12:20→12:38)
--- NOTE | 2018-03-08 13:09 | Diagnostic Imaging Report ---
PROCEDURE: CT chest and abdomen with contrast. TECHNIQUE: Multiple contiguous axial images were obtained through the chest and abdomen after the administration of intravenous contrast. INDICATION: COPD and prior liver surgery in 2001. Patient has elevated liver enzymes. COMPARISON: Comparison is made with prior noncontrast CT chest from 07/06/2015. CT CHEST: No axillary lymphadenopathy is detected. No hilar or mediastinal lymphadenopathy is detected. No pericardial or pleural fluid is identified. No parenchymal nodules, masses, or infiltrates are seen. IMPRESSION: Stable CT of the chest when compared with exam from 07/06/2015. No thoracic lymphadenopathy or pulmonary mass is identified. CT ABDOMEN: Circumscribed low-density lesions in the right lobe of the liver appear stable and consistent with cysts. There appears to be a stone or sludge ball within the gallbladder. Note is made of a left paramidline fat-containing ventral hernia in the upper abdomen. The pancreas and spleen are unremarkable. No adrenal mass is detected. The kidneys are unremarkable. The aorta is nonaneurysmal. No central retroperitoneal or mesenteric lymphadenopathy is seen. There are small lymph nodes at the level of the aortic bifurcation, indeterminate. Mildly prominent portacaval lymph nodes are present as well. The largest measures 15 mm. This compares with [address] from 2014. Bowel loops are normal in caliber. There is no ascites. Bony structures are nonacute. IMPRESSION: 1. Stable hepatic cysts. 2. Gallstone versus sludge ball within the gallbladder. 3. Small fat-containing midline ventral hernia. 4. Mildly prominent lymph nodes in the portacaval location, stable when compared with exam from June 2015. Dictated by: Dictated on workstation # [id number]
--- NOTE | 2018-03-08 16:11 | Diagnostic Imaging Report ---
EXAM: Nuclear medicine whole body bone scan. DATE: March 08, 2018. INDICATION: 68-year-old female, history of left breast cancer. COMPARISON: CT chest and abdomen, March 08, 2018. CT head, January 10, 2018. FINDINGS: 26.2 mCi of technetium-labeled MDP radiotracer was administered. Delayed subsequent whole body bone scan images were subsequently obtained. Additional lateral projections at the level of the thorax and skull were also obtained and provided. There is radiotracer uptake at the level of the L4 vertebral body without correlate lesion on same-day CT. There is moderate disc height loss at L4-L5 and moderate disc height loss at L5-S1 with facet degenerative change at L5-S1 on comparison same-day CT imaging. This radiotracer uptake is most likely degenerative related. There is no compression fracture. There are bilateral knee replacements. There is radiotracer uptake at the level of the lower cervical spine which is most likely degenerative related. There is degenerative-related radiotracer uptake adjacent to the bilateral sternoclavicular articulations. There is a left shoulder prosthesis. There is no identified radiotracer avid lesion to specifically suggest osteoblastic bone metastasis. There is radiotracer uptake in the right midfoot laterally which is nonspecific. Correlation for focal pain at this site is recommended. IMPRESSION: 1. No nuclear medicine evidence of osteoblastic bone metastasis. 2. Nonspecific radiotracer uptake at the level of the right midfoot laterally. Recommend correlation for focal pain at this site. Dictated by: Dictated on workstation # [id number]
== END ==
LOC: CARD 12:00
PROVIDERS: ATTEND Internal Medicine Hematology & Oncology
DX: R74.8 Abnormal levels of other serum enzymes (principal); E83.52 Hypercalcemia
CPT/HCPCS: 71260; 74160; 78306

== ENCOUNTER → 2018-03-22 | Outpatient (RCR) | payer MEDICARE, OTHER ==
[~2018-03-22] MED LIST changes: -IOHEXOL 350 MG/ML 100 ML (OMNIPAQUE 350) VIAL IV ONE; -NS 250 ML (IVPB) BAG IV ONE
== END | disposition home or self-care (01) ==
PROVIDERS: ATTEND Orthopaedic Surgery
DX: Z47.1 Aftercare following joint replacement surgery (principal); Z96.652 Presence of left artificial knee joint

== ENCOUNTER 2018-04-09 14:30 | Outpatient (RCR) | payer MEDICARE, OTHER | END 2018-04-09 15:01 | disposition home or self-care (01) | PROVIDERS: ATTEND Orthopaedic Surgery | DX: Z47.1 Aftercare following joint replacement surgery (principal); Z96.652 Presence of left artificial knee joint ==

== ENCOUNTER → 2018-11-01 | Outpatient (CLI) | payer MEDICARE ==
[~2018-11-01] MED LIST changes: +HYDR-4226 PO; -HYDR-757 PO; -OXYC-197 PO; +OXYC1TAB87 PO
[2018-11-01 14:52] LABS: BASOPHILS % (AUTO) 0 % (0-10); EOSINOPHILS # (AUTO) 0.4 10^3/uL (0.0-0.3); EOSINOPHILS % (AUTO) 9 % (0-10); HEMATOCRIT 39 % (35-52); HEMOGLOBIN 13.3 G/DL (11.5-16.0); LYMPHOCYTES # (AUTO) 1.3 X 10^3 (1.0-4.0); LYMPHOCYTES % (AUTO) 29 % (12-44); MEAN CORPUSCULAR HEMOGLOBIN 30 PG (25-34); MEAN CORPUSCULAR HGB CONC 35 G/DL (32-36); MEAN CORPUSCULAR VOLUME 87 FL (80-99); MEAN PLATELET VOLUME 9.9 FL (7.4-10.4); MONOCYTES # (AUTO) 0.5 X 10^3 (0.0-1.0); MONOCYTES % (AUTO) 12 % (0-12); NEUTROPHILS # (AUTO) 2.4 X 10^3 (1.8-7.8); NEUTROPHILS % (AUTO) 51 % (42-75); PLATELET COUNT 210 10^3/uL (130-400); RED CELL DISTRIBUTION WIDTH 13.4 % (10.0-14.5); WHITE BLOOD COUNT 4.7 10^3/uL (4.3-11.0)
[2018-11-01 15:17] LABS: ALANINE AMINOTRANSFERASE 50 U/L (0-55); ALBUMIN 3.9 GM/DL (3.2-4.5); ALKALINE PHOSPHATASE 221 U/L (40-136); BILIRUBIN,TOTAL 0.5 MG/DL (0.1-1.0); BUN/CREATININE RATIO 28; CALCIUM 9.8 MG/DL (8.5-10.1); CARBON DIOXIDE 29 MMOL/L (21-32); CHLORIDE 105 MMOL/L (98-107); CREATININE SERUM 0.71 MG/DL (0.60-1.30); GFR ESTIMATED > 60; GLUCOSE 105 MG/DL (70-105); POTASSIUM 3.9 MMOL/L (3.6-5.0); SODIUM 142 MMOL/L (135-145); TOTAL PROTEIN 7.2 GM/DL (6.4-8.2)
== END ==
LOC: EDSTATUS 05-10 14:30 → ONC 14:33
PROVIDERS: ATTEND Internal Medicine Hematology & Oncology
DX: Z08 Encounter for follow-up examination after completed treatment for malignant neoplasm (principal); Z85.3 Personal history of malignant neoplasm of breast; Z90.12 Acquired absence of left breast and nipple; Z86.718 Personal history of other venous thrombosis and embolism; Z86.711 Personal history of pulmonary embolism; M06.9 Rheumatoid arthritis, unspecified; Z92.3 Personal history of irradiation; Z96.653 Presence of artificial knee joint, bilateral; Z79.899 Other long term (current) drug therapy; Z88.5 Allergy status to narcotic agent
CPT/HCPCS: 36415; 80053; 85025; 99213

== ENCOUNTER → 2018-11-08 | Outpatient (CLI) | payer MEDICARE ==
--- NOTE | 2018-11-08 21:17 | Diagnostic Imaging Report ---
INDICATION: Routine screening. Comparison is made with prior mammograms from 09/28/2017 and 08/07/2016. 2-D and 3-D unilateral right screening mammography was performed with computer-aided Detection (CAD) system. FINDINGS: The right breast is primarily involutional. The parenchymal pattern is stable. There are benign calcifications. No mass or malignant-appearing microcalcifications are seen. Right axilla is unremarkable. IMPRESSION: No mammographic features suspicious for malignancy are identified. ACR BI-RADS Category 2: Benign findings. Result letter will be mailed to the patient. Note: At least 10% of breast cancer is not imaged by mammography. Dictated by: Dictated on workstation # [id number]
== END ==
LOC: RAD 15:16
PROVIDERS: ATTEND Internal Medicine Hematology & Oncology
DX: Z12.31 Encounter for screening mammogram for malignant neoplasm of breast (principal); C50.512 Malignant neoplasm of lower-outer quadrant of left female breast; Z90.12 Acquired absence of left breast and nipple

== ENCOUNTER 2019-09-01 15:19 | Emergency (ER) | payer MEDICARE ==
[~2019-09-01] VITALS: Ht 160 cm; Wt 92.5 kg
--- NOTE | 2019-09-01 16:21 | NUR ---
NOTIFIED OF BUSY ER WITH POSSILBE LONG WAIT TIME. VERBALIZED UNDERSTANDING OF LETTING THE OFFICE AUTOMATION CLERK KNOW OF ANY CHANGES OR SOA AND I WOULD COME REASSESS HER.
[2019-09-01 17:17] VITALS: BP 124/76
[2019-09-01] MEDS ORDERED: RT-ALBUTEROL/IPRATROPIUM 3 ML (DUONEB) VIAL INH ONE (18:30)
[2019-09-01 18:55] LABS: BASOPHILS % (AUTO) 0 % (0-10); EOSINOPHILS % (AUTO) 0 % (0-10); HEMATOCRIT 43 % (35-52); HEMOGLOBIN 14.9 G/DL (11.5-16.0); LYMPHOCYTES # (AUTO) 1.3 X 10^3 (1.0-4.0); LYMPHOCYTES % (AUTO) 24 % (12-44); MEAN CORPUSCULAR HEMOGLOBIN 30 PG (25-34); MEAN CORPUSCULAR HGB CONC 35 G/DL (32-36); MEAN CORPUSCULAR VOLUME 86 FL (80-99); MEAN PLATELET VOLUME 10.1 FL (7.4-10.4); MONOCYTES # (AUTO) 0.6 X 10^3 (0.0-1.0); MONOCYTES % (AUTO) 10 % (0-12); NEUTROPHILS # (AUTO) 3.7 X 10^3 (1.8-7.8); NEUTROPHILS % (AUTO) 66 % (42-75); PLATELET COUNT 174 10^3/uL (130-400); RED CELL DISTRIBUTION WIDTH 13.9 % (10.0-14.5); WHITE BLOOD COUNT 5.6 10^3/uL (4.3-11.0)
--- NOTE | 2019-09-01 18:56 | Diagnostic Imaging Report ---
INDICATION: Cough and congestion. PA and lateral views of the chest are obtained. FINDINGS: Since 11/17/2017, there has been an increase in infrahilar density in both lungs which may be due to atelectasis and/or pneumonitis. There is no evidence of pneumothorax or significant pleural fluid. Surgical findings in left shoulder are again noted. There is diffuse thoracic spondylosis. IMPRESSION: Mild increase in infrahilar atelectasis and/or pneumonitis, bilaterally. Dictated by: Dictated on workstation # [id number]
--- NOTE | 2019-09-01 19:00 | NUR ---
Report given to SANTOS Workman at this time.
[2019-09-01 19:15] LABS: ALANINE AMINOTRANSFERASE 40 U/L (0-55); ALBUMIN 4.1 GM/DL (3.2-4.5); ALKALINE PHOSPHATASE 316 U/L (40-136); BILIRUBIN,TOTAL 0.4 MG/DL (0.1-1.0); BUN/CREATININE RATIO 13; CALCIUM 9.8 MG/DL (8.5-10.1); CARBON DIOXIDE 25 MMOL/L (21-32); CHLORIDE 99 MMOL/L (98-107); CREATININE SERUM 0.77 MG/DL (0.60-1.30); GFR ESTIMATED > 60; GLUCOSE 95 MG/DL (70-105); POTASSIUM 3.8 MMOL/L (3.6-5.0); SODIUM 138 MMOL/L (135-145)
[2019-09-01] MEDS ORDERED: RX-ALBUTEROL NEB 2.5 MG/3 ML PACK #5 IH STA (20:04)
[2019-09-01] MEDS ORDERED: AZIT250T12 PO (20:08)
[2019-09-01] MEDS ORDERED: PRD20T PO (20:08)
--- NOTE | 2019-09-01 20:08 | ED General ---
General Chief Complaint: Cough/Cold/Flu Symptoms Stated Complaint: CONGESTED,COUGH,SOB Nursing Triage Note: ARRIVED VIA AMB TO TRIAGE WITH COMPLAINTS OF COUGH AND CONGESTION FOR SEVERAL DAYS. STATES SHE IS WEAK AND HER LUNGS ARE WHEEZY. HX OF PNEUMONIA. STATES HER PULSE OX AT HOME WAS 88-90%. Nursing Sepsis Screen: No Definite Risk Source of Information: Patient, Family Exam Limitations: No Limitations History of Present Illness Date Seen by Provider: Sep 01, 2019 Time Seen by Provider: 18:06 Initial Comments This 69-year-old woman presents to the emergency room with complaints of productive cough and shortness of breath. She has had discomfort in her chest, neck, and back. She has had chills in the night. Illness has been ongoing for about one week. She has not taken any nebulizer treatments because she could not find the medication or tubing for her nebulizer machine. She does have a history of COPD. She reports oxygen saturation at home was as low as 85 percent on room air. She is afebrile at present with a stable respiratory status. She has mild upper abdominal discomfort which she states is from "spastic colon". Allergies and Home Medications Allergies Coded Allergies: codeine (Verified Allergy, Mild, HALLUCINATION, 02/13/16) morphine (Unverified Allergy, Mild, SKIN WAS BLOTCHY AND PINK., 04/02/16) Home Medications Albuterol Sulfate 2.5 Mg/3 Ml Vial.neb, 2.5 MG INH Q4H PRN for WHEEZING Prescribed by: KRISTIE GOLDSTEIN on 09/01/192008 Aspirin 81 Mg Tab.chew, 81 MG PO DAILY, (Reported) Azithromycin 250 Mg Tablet, 250 MG PO UD TAKE 2 TABLETS ON DAY ONE THEN TAKE 1 TABLET DAILY FOR FOUR MORE DAYS Prescribed by: KRISTIE GOLDSTEIN on 09/01/192007 Biotin 1,000 Mcg Tablet, 1,000 MCG PO DAILY, (Reported) Cholecalciferol (Vitamin D3) 5,000 Unit Capsule, 5,000 UNIT PO DAILY, (Reported) Cyanocobalamin (Vitamin B-12) 1,000 Mcg Tablet, 2,500 MCG PO DAILY, (Reported) Cyclobenzaprine HCl 10 Mg Tablet, 10 MG PO HS, (Reported) Gabapentin 300 Mg Capsule, 300 MG PO HS, (Reported) Gabapentin 100 Mg Capsule, 100 MG PO DAILY, (Reported) Hydrochlorothiazide 25 Mg Tablet, 25 MG PO DAILY, (Reported) Krill Oil 500 Mg Capsule, 500 MG PO DAILY, (Reported) L.acidoph & Paracasei,B.lactis 1 Each Capsule, 1 CAP PO DAILY, (Reported) Meloxicam 15 Mg Tablet, 15 MG PO DAILY, (Reported) Metoprolol Tartrate 50 Mg Tablet, 50 MG PO BID, (Reported) Multivitamin 1 Each Tablet, 1 TAB PO DAILY, (Reported) Oxycodone HCl/Acetaminophen 1 Each Tablet, 1 EACH PO Q4H Prescribed by: SALOMÓN ADKINS on 12/02/17 0950 Potassium Chloride 10 Meq Tab.er.prt, 10 MEQ PO DAILY, (Reported) Prednisone 20 Mg Tab, 20 MG PO DAILY Prescribed by: KRISTIE GOLDSTEIN on 09/01/192007 Sertraline HCl 50 Mg Tablet, 50 MG PO DAILY, (Reported) Patient Home Medication List Home Medication List Reviewed: Yes Review of Systems Review of Systems Constitutional: no symptoms reported EENTM: no symptoms reported Respiratory: see HPI Cardiovascular: no symptoms reported Gastrointestinal: no symptoms reported Genitourinary: no symptoms reported : No Musculoskeletal: no symptoms reported Skin: no symptoms reported Psychiatric/Neurological: No Symptoms Reported Hematologic/Lymphatic: No Symptoms Reported Past Twoxyix-Mgvxhe-Gcistb Hx Past Med/Social Hx: Reviewed and Corrections made Patient Social History Type Used: Cigarettes Former Smoker, Quit: Apr 01, 1985 Recent Foreign Travel: No Contact w/Someone Who Travel: No Recent Infectious Disease Expo: No Recent Hopitalizations: Yes Immunizations Up To Date Date of Pneumonia Vaccine: Jul 14, 2015 Date of Influenza Vaccine: Jul 04, 2017 Seasonal Allergies Seasonal Allergies: Yes Past Medical History Surgeries: Yes (SHOULDER SHOULDER X3, LIVER SURGERY-CYSTS, ) Abdominal, Joint Replacement, Orthopedic, Vascular Surgery Respiratory: Yes (EASILY GETS PNEUMONIA/BRONCHITIS FROM PAST SMOKING) Pneumonia, COPD Cardiac: Yes Deep Vein Thrombosis, Hypertension Neurological: Yes Neuropathy Reproductive Disorders: No (PAGETS DISEASE) Female Reproductive Disorders: Denies Sexually Transmitted Disease: No HIV/AIDS: No Genitourinary: No Gastrointestinal: Yes Hemorrhoids, Irritable Bowel Musculoskeletal: Yes Arthritis Endocrine: No HEENT: Yes (READING GLASSES) Loss of Vision: Bilateral Hearing Impairment: Denies Cancer: Yes (PAGETS DISEASE) Skin, Breast What Type of Treatment Did You: Surgical Intervention Psychosocial: Yes (TAKES ANTIDEPRESSANT FOR ARTHRITIS) Integumentary: No Blood Disorders: No Adverse Reaction/Blood Tranf: No (HAS HAD BLOOD WITH NO REACTION) Family Medical History Diabetes mellitus 19 FATHER FH: brain tumor 19 MOTHER Hypertension 19 FATHER Physical Exam Vital Signs Vital Signs - First Documented 09/01/19 16:16 Temp 37.7 Pulse 97 Resp 16 B/P (MAP) 136/84 (101) Pulse Ox 92 O2 Delivery Room Air Capillary Refill : Less Than 3 Seconds Height, Weight, BMI Height: 5'3.00" Weight: 200lbs. 6.0oz. 90.477527pv; 36.00 BMI Method:Stated General Appearance: No Apparent Distress, WD/WN HEENT: PERRL/EOMI, Normal ENT Inspection Neck: Normal Inspection Respiratory: No Accessory Muscle Use, No Respiratory Distress, Wheezing Cardiovascular: Regular Rate, Rhythm, No Edema, No Murmur Gastrointestinal: Normal Bowel Sounds, Soft, Tenderness (slight in the upper abdominal regions) Extremity: Normal Inspection, Non Tender, No Pedal Edema Neurologic/Psychiatric: Alert, Oriented x3, No Motor/Sensory Deficits, Normal Mood/Affect, plaque maker II-XII Norm as Tested Skin: Normal Color, Warm/Dry Progress/Results/Core Measures Suspected Sepsis Recent Fever Within 48 Hours: No Infection Criteria Present: None New/Unexplained Altered Menta: No Sepsis Screen: No Definite Risk SIRS Temperature: Pulse: 96 Respiratory Rate: 16 Laboratory Tests 09/01/19 18:47: White Blood Count 5.6 Blood Pressure 124 /76 Mean: 92 Laboratory Tests 09/01/19 18:47: Creatinine 0.77, Platelet Count 174, Total Bilirubin 0.4 Results/Orders Lab Results Laboratory Tests Test 09/01/19 18:20 09/01/19 18:47 Range/Units Group A Streptococcus Screen NEGATIVE NEGATIVE White Blood Count 5.6 4.3-11.0 10^3/uL Red Blood Count 4.92 4.35-5.85 10^6/uL Hemoglobin 14.9 11.5-16.0 G/DL Hematocrit 43 35-52 % Mean Corpuscular Volume 86 80-99 FL Mean Corpuscular Hemoglobin 30 25-34 PG Mean Corpuscular Hemoglobin Concent 35 32-36 G/DL Red Cell Distribution Width 13.9 10.0-14.5 % Platelet Count 174 130-400 10^3/uL Mean Platelet Volume 10.1 7.4-10.4 FL Neutrophils (%) (Auto) 66 42-75 % Lymphocytes (%) (Auto) 24 12-44 % Monocytes (%) (Auto) 10 0-12 % Eosinophils (%) (Auto) 0 0-10 % Basophils (%) (Auto) 0 0-10 % Neutrophils # (Auto) 3.7 1.8-7.8 X 10^3 Lymphocytes # (Auto) 1.3 1.0-4.0 X 10^3 Monocytes # (Auto) 0.6 0.0-1.0 X 10^3 Eosinophils # (Auto) 0.0 0.0-0.3 10^3/uL Basophils # (Auto) 0.0 0.0-0.1 10^3/uL Sodium Level 138 135-145 MMOL/L Potassium Level 3.8 3.6-5.0 MMOL/L Chloride Level 99 98-107 MMOL/L Carbon Dioxide Level 25 21-32 MMOL/L Anion Gap 14 5-14 MMOL/L Blood Urea Nitrogen 10 7-18 MG/DL Creatinine 0.77 0.60-1.30 MG/DL Estimat Glomerular Filtration Rate > 60 BUN/Creatinine Ratio 13 Glucose Level 95 70-105 MG/DL Calcium Level 9.8 8.5-10.1 MG/DL Corrected Calcium 9.7 8.5-10.1 MG/DL Total Bilirubin 0.4 0.1-1.0 MG/DL Aspartate Amino Transf (AST/SGOT) 56 H 5-34 U/L Alanine Aminotransferase (ALT/SGPT) 40 0-55 U/L Alkaline Phosphatase 316 H 40-136 U/L C-Reactive Protein High Sensitivity 3.29 H 0.00-0.50 MG/DL Total Protein 8.0 6.4-8.2 GM/DL Albumin 4.1 3.2-4.5 GM/DL Micro Results Microbiology 09/01/19 Influenza Types A,B Antigen (ANITA) - Final, Complete My Orders Orders - KRISTIE ESPARZA MD Cbc With Automated Diff (09/01/19 18:05) Comprehensive Metabolic Panel (09/01/19 18:05) Hs C Reactive Protein (09/01/19 18:05) Influenza A And B Antigens (09/01/19 18:05) Ed Iv/Invasive Line Start (09/01/19 18:05) Chest Pa/Lat (2 View) (09/01/19 18:05) Albuterol/Ipra Inhalation Soln (Duoneb I (09/01/19 18:30) Svn Small Volume Nebulizer (09/01/19 18:17) Rapid Strep A Screen (09/01/19 18:17) Rx-Albuterol Nebs (Rx-Proventil Nebs) (09/01/19 20:04) Medications Given in ED Current Medications Medications Dose Ordered Sig/Adelfo Route Start Time Stop Time Status Last Admin Dose Admin Albuterol/ Ipratropium 3 ml ONCE ONCE INH 09/01/19 18:30 09/01/19 18:31 DC 09/01/19 18:32 3 ML Vital Signs/I&O 09/01/19 09/01/19 09/01/19 16:16 17:17 20:18 Temp 37.7 37.8 37.8 Pulse 97 96 95 Resp 16 16 B/P (MAP) 136/84 (101) 124/76 (92) 122/75 (92) Pulse Ox 92 92 93 O2 Delivery Room Air Room Air Capillary Refill : Less Than 3 Seconds Blood Pressure Mean: 92 Progress Note : Progress Note Patient was seen and examined. She was treated with a DuoNeb treatment with some improvement in her wheezing. She was not hypoxic during her ER stay. She was found to have influenza A but was outside of the treatment window for antivirals. Patient was incidentally found to have elevated alkaline phosphatase. She was advised to discuss this with her PCP. Diagnostic Imaging Diagonstic Imaging: Xray Plain Films/CT/US/NM/MRI: chest Comments Chest x-ray viewed by me and report reviewed. See report below: NAME: CONSTANTINE [facility]ISCAL [facility] REC#: [id number] PT STATUS: REG ER : 1950 PHYSICIAN: KRISTIE ESPARZA MD ADMIT DATE: 09/01/19/ER Signed Date of Exam:09/01/19 CHEST PA/LAT (2 VIEW) INDICATION: Cough and congestion. PA and lateral views of the chest are obtained. FINDINGS: Since 11/17/2017, there has been an increase in infrahilar density in both lungs which may be due to atelectasis and/or pneumonitis. There is no evidence of pneumothorax or significant pleural fluid. Surgical findings in left shoulder are again noted. There is diffuse thoracic spondylosis. IMPRESSION: Mild increase in infrahilar atelectasis and/or pneumonitis, bilaterally. Dictated by: Dictated on workstation # [id number] Dict: 09/01/191853 Trans: 09/01/191899 [id number] Interpreted by: KARINA LOWRY MD Electronically signed by: KARINA LORWY MD 09/01/191899 Departure Impression Primary Impression: Influenza A Additional Impressions: COPD exacerbation Elevated alkaline phosphatase level Disposition: HOME, SELF-CARE Condition: Improved Departure-Patient Inst. Decision time for Depature: 20:05 Referrals: DOMINGUEZ OLGUIN MD (PCP/Family) Primary Care Physician Patient Instructions: Alkaline Phosphatase Test, Exacerbation of COPD (DC), Flu Add. Discharge Instructions: Drink plenty of clear liquids. You may take Tylenol (acetaminophen) up to 1000 g every 6 hours as needed for fever, aches and pains. For breakthrough aches and pains or fever or you may a dd ibuprofen up to 400 mg every 6 hours as needed. If symptoms are still has bad tomorrow after doing a couple of breathing henry tments, you may start the steroids and antibiotics as prescribed. Please finish these medications if you start them. Return to the emergency room if you have worsening symptoms or other concerns. Follow-up with your primary care provider as soon as possible about your elevated alkaline phosphatase level. All discharge instructions reviewed with patient and/or family. Voiced un derstanding. Scripts Albuterol Sulfate (Albuterol Sulfate) 2.5 Mg/3 Ml Vial.neb 2.5 MG INH Q4H PRN for WHEEZING, #50 EA 1 Refill Prov: KRISTIE ESPARZA MD 09/01/19 Prednisone (Prednisone) 20 Mg Tab 20 MG PO DAILY, #4 TAB 0 Refills Prov: KRISTIE ESPARZA MD 09/01/19 Azithromycin (Azithromycin) 250 Mg Tablet 250 MG PO UD, #6 TAB TAKE 2 TABLETS ON DAY ONE THEN TAKE 1 TABLET DAILY FOR FOUR MORE DAYS Prov: KRISTIE ESPARZA MD 09/01/19 Copy Copies To 1: DOMINGUEZ OLGUIN MD, JOSHUA T MD Sep 01, 2019 20:08
[2019-09-01] MEDS ORDERED: ALBU2.5V4 INH (20:09)
[2019-09-01 20:18] VITALS: BP 122/75
== END 2019-09-01 20:19 | disposition home or self-care (01) ==
LOC: EDUNIT# 15:19 → ER 15:20
DX: J10.1 Influenza due to other identified influenza virus with other respiratory manifestations (principal); J44.1 Chronic obstructive pulmonary disease with (acute) exacerbation; R74.8 Abnormal levels of other serum enzymes; I10 Essential (primary) hypertension; G62.9 Polyneuropathy, unspecified; K58.9 Irritable bowel syndrome, unspecified; Z85.828 Personal history of other malignant neoplasm of skin; Z85.3 Personal history of malignant neoplasm of breast; Z86.718 Personal history of other venous thrombosis and embolism; Z88.5 Allergy status to narcotic agent; Z79.82 Long term (current) use of aspirin; Z87.891 Personal history of nicotine dependence; Z82.49 Family history of ischemic heart disease and other diseases of the circulatory system
CPT/HCPCS: 36415; 71046; 80053; 85025; 86141; 87430; 87804

== ENCOUNTER → 2019-11-01 | Outpatient (CLI) | payer MEDICARE ==
[~2019-11-01] MED LIST changes: +ALBU2.5V4 INH; +AZIT250T12 PO; +FLUO20CA46 PO; -METO-370 PO; +METO50TA7 PO; +PRD20T PO
[2019-11-01 14:04] LABS: BASOPHILS % (AUTO) 0 % (0-10); EOSINOPHILS # (AUTO) 0.2 10^3/uL (0.0-0.3); EOSINOPHILS % (AUTO) 4 % (0-10); HEMATOCRIT 41 % (35-52); HEMOGLOBIN 13.9 G/DL (11.5-16.0); LYMPHOCYTES # (AUTO) 1.4 X 10^3 (1.0-4.0); LYMPHOCYTES % (AUTO) 33 % (12-44); MEAN CORPUSCULAR HEMOGLOBIN 30 PG (25-34); MEAN CORPUSCULAR HGB CONC 34 G/DL (32-36); MEAN CORPUSCULAR VOLUME 89 FL (80-99); MEAN PLATELET VOLUME 10.3 FL (7.4-10.4); MONOCYTES # (AUTO) 0.5 X 10^3 (0.0-1.0); MONOCYTES % (AUTO) 13 % (0-12); NEUTROPHILS # (AUTO) 2.1 X 10^3 (1.8-7.8); NEUTROPHILS % (AUTO) 50 % (42-75); PLATELET COUNT 186 10^3/uL (130-400); RED CELL DISTRIBUTION WIDTH 13.9 % (10.0-14.5); WHITE BLOOD COUNT 4.2 10^3/uL (4.3-11.0)
[2019-11-01 14:23] LABS: ALANINE AMINOTRANSFERASE 71 U/L (0-55); ALKALINE PHOSPHATASE 353 U/L (40-136); BILIRUBIN,TOTAL 0.5 MG/DL (0.1-1.0); BUN/CREATININE RATIO 22; CALCIUM 9.7 MG/DL (8.5-10.1); CARBON DIOXIDE 27 MMOL/L (21-32); CHLORIDE 105 MMOL/L (98-107); CREATININE SERUM 0.74 MG/DL (0.60-1.30); GFR ESTIMATED > 60; GLUCOSE 110 MG/DL (70-105); POTASSIUM 3.7 MMOL/L (3.6-5.0); SODIUM 143 MMOL/L (135-145); TOTAL PROTEIN 7.5 GM/DL (6.4-8.2)
== END ==
LOC: ONC 13:49
PROVIDERS: ATTEND Internal Medicine Hematology & Oncology
DX: C50.012 Malignant neoplasm of nipple and areola, left female breast (principal); D05.12 Intraductal carcinoma in situ of left breast
CPT/HCPCS: 80053; 85025; 99213

== ENCOUNTER → 2019-11-16 | Outpatient (CLI) | payer MEDICARE ==
--- NOTE | 2019-11-16 12:28 | Diagnostic Imaging Report ---
INDICATION: Routine screening. COMPARISON: 11/08/2018 and 09/28/2017. TECHNIQUE: Unilateral right 2D and 3D screening mammography was performed with CAD. FINDINGS: The right breast is primarily involutional. Benign calcifications in the right breast are again noted. No mass or malignant appearing microcalcifications are seen. The right axilla is unremarkable. IMPRESSION: No mammographic features suspicious for malignancy are identified. ACR BI-RADS Category 2: Benign findings. Result letter will be mailed to the patient. Note: At least 10% of breast cancer is not imaged by mammography. Dictated by: Dictated on workstation # [id number]
== END ==
LOC: RAD 11:08
PROVIDERS: ATTEND Nurse Practitioner Adult Health
DX: Z12.31 Encounter for screening mammogram for malignant neoplasm of breast (principal); Z90.12 Acquired absence of left breast and nipple

== ENCOUNTER → 2019-11-22 | Outpatient (CLI) | payer MEDICARE ==
[2019-11-22 15:42] LABS: ALANINE AMINOTRANSFERASE 61 U/L (0-55); ALKALINE PHOSPHATASE 256 U/L (40-136); BILIRUBIN,TOTAL 0.5 MG/DL (0.1-1.0); BUN/CREATININE RATIO 25; CALCIUM 9.6 MG/DL (8.5-10.1); CARBON DIOXIDE 29 MMOL/L (21-32); CHLORIDE 104 MMOL/L (98-107); CREATININE SERUM 0.68 MG/DL (0.60-1.30); GFR ESTIMATED > 60; GLUCOSE 95 MG/DL (70-105); POTASSIUM 3.8 MMOL/L (3.6-5.0); SODIUM 142 MMOL/L (135-145); TOTAL PROTEIN 7.4 GM/DL (6.4-8.2)
== END ==
LOC: LAB 14:42
PROVIDERS: ATTEND Internal Medicine Hematology & Oncology
DX: R74.8 Abnormal levels of other serum enzymes (principal)
CPT/HCPCS: 36415; 80053

== ENCOUNTER → 2019-12-27 | Outpatient (CLI) | payer MEDICARE ==
[2019-12-27 15:33] LABS: ALANINE AMINOTRANSFERASE 57 U/L (0-55); ALBUMIN 3.7 GM/DL (3.2-4.5); ALKALINE PHOSPHATASE 391 U/L (40-136); BILIRUBIN,TOTAL 0.4 MG/DL (0.1-1.0); BUN/CREATININE RATIO 18; CALCIUM 9.5 MG/DL (8.5-10.1); CARBON DIOXIDE 28 MMOL/L (21-32); CHLORIDE 104 MMOL/L (98-107); CREATININE SERUM 0.71 MG/DL (0.60-1.30); GFR ESTIMATED > 60; GLUCOSE 114 MG/DL (70-105); POTASSIUM 3.8 MMOL/L (3.6-5.0); SODIUM 142 MMOL/L (135-145); TOTAL PROTEIN 7.6 GM/DL (6.4-8.2)
== END ==
LOC: ONC 15:01
PROVIDERS: ATTEND Internal Medicine Hematology & Oncology
DX: C50.012 Malignant neoplasm of nipple and areola, left female breast (principal); D05.12 Intraductal carcinoma in situ of left breast
CPT/HCPCS: 80053

== ENCOUNTER → 2020-01-13 | Outpatient (CLI) | payer MEDICARE ==
[~2020-01-13] MED LIST changes: +CATHETER FLUSH 10 ML SYR IV PRN
--- NOTE | 2020-01-13 14:19 | Diagnostic Imaging Report ---
EXAMINATION: CT chest with contrast, CT abdomen with and without contrast. TECHNIQUE: Precontrast acquisitions were acquired through the abdomen. Multiple contiguous axial images were obtained through the chest and abdomen after administration of intravenous contrast. All CT scans use one or more of the following dose optimizing techniques: automated exposure control, MA and/or KvP adjustment based on a patient size and exam type, or iterative reconstruction. HISTORY: Elevated liver enzymes. COMPARISON: None available. FINDINGS: There is no edema or pneumonia. No pleural effusion. No pneumothorax. There is a new 6 mm left upper lobe nodule (series 4, image 7). There has been a left mastectomy. There is mild scarring in the right lung base. Heart size is normal. There are no coronary artery calcifications. No pericardial effusion. Aorta is normal in caliber. There is no axillary or supraclavicular lymphadenopathy. There is no mediastinal lymphadenopathy. Cyst is present in hepatic segment VII. Another low-attenuating lesion in the central liver is likely a cyst as well but too small to accurately characterize. There is a cyst in hepatic segment III. There is no biliary ductal dilation. There is a large gallstone in the gallbladder. Pancreas is normal. Spleen is normal. Adrenal glands are normal. The kidneys are normal. There is no hydronephrosis. Visualized bowel is normal in caliber without obstruction or inflammation. There is a small fat-containing ventral hernia. No free fluid or air. No abdominal lymphadenopathy. Aorta is normal in caliber without aneurysm. There are no suspicious osseus lesions. IMPRESSION: 1. No acute abnormality in the chest or abdomen. 2. Small indeterminate left upper lobe nodule. According to the Fleischner Society guidelines: In a low risk patient, no routine follow up is recommended. In a high risk patient, consider optional CT at 12 months. 3. Small fat-containing ventral hernia. Dictated by: Dictated on workstation # [id number]
--- NOTE | 2020-01-13 17:00 | Diagnostic Imaging Report ---
INDICATION: History of left breast CA. COMPARISON: Previous bone scan of 03/08/2018 for review. TECHNIQUE: 25.4 mCi tech 99m MDP was given IV. 3-hour delayed whole body imaging was performed. FINDINGS: There is normal uptake throughout the skeletal system. No focal area of abnormal uptake has developed that would suggest metastatic disease. IMPRESSION: Stable whole body bone scan. No change to suggest metastatic disease has occurred. Dictated by: Dictated on workstation # [id number]
== END ==
LOC: CARD 12:04
PROVIDERS: ATTEND Nurse Practitioner Adult Health
DX: D05.12 Intraductal carcinoma in situ of left breast (principal); R74.8 Abnormal levels of other serum enzymes; R10.9 Unspecified abdominal pain; R91.1 Solitary pulmonary nodule; K43.9 Ventral hernia without obstruction or gangrene
CPT/HCPCS: 71260; 74170; 78306

== ENCOUNTER → 2020-11-28 | Outpatient (CLI) | payer MEDICARE ==
[~2020-11-28] MED LIST changes: -CATHETER FLUSH 10 ML SYR IV PRN; -OXYC-471 PO; +OXYC1TAB11 PO; +SERT-413 PO; -SERT50TA9 PO
[2020-11-28 13:07] LABS: BASOPHILS % (AUTO) 1 % (0-10); EOSINOPHILS # (AUTO) 0.1 10^3/uL (0.0-0.3); EOSINOPHILS % (AUTO) 2 % (0-10); HEMATOCRIT 41 % (35-52); HEMOGLOBIN 13.9 g/dL (11.5-16.0); LYMPHOCYTES # (AUTO) 1.1 10^3/uL (1.0-4.0); LYMPHOCYTES % (AUTO) 25 % (12-44); MEAN CORPUSCULAR HEMOGLOBIN 31 pg (25-34); MEAN CORPUSCULAR HGB CONC 34 g/dL (32-36); MEAN CORPUSCULAR VOLUME 90 fL (80-99); MEAN PLATELET VOLUME 10.8 fL (9.0-12.2); MONOCYTES # (AUTO) 0.5 10^3/uL (0.0-1.0); MONOCYTES % (AUTO) 12 % (0-12); NEUTROPHILS # (AUTO) 2.6 10^3/uL (1.8-7.8); NEUTROPHILS % (AUTO) 60 % (42-75); PLATELET COUNT 190 10^3/uL (130-400); WHITE BLOOD COUNT 4.3 10^3/uL (4.3-11.0)
[2020-11-28 13:34] LABS: ALANINE AMINOTRANSFERASE 44 U/L (0-55); ALBUMIN 3.6 GM/DL (3.2-4.5); ALKALINE PHOSPHATASE 225 U/L (40-136); BILIRUBIN,TOTAL 0.5 MG/DL (0.1-1.0); BUN/CREATININE RATIO 17; CALCIUM 9.2 MG/DL (8.5-10.1); CARBON DIOXIDE 26 MMOL/L (21-32); CHLORIDE 105 MMOL/L (98-107); CREATININE SERUM 0.72 MG/DL (0.60-1.30); GFR ESTIMATED > 60; GLUCOSE 114 MG/DL (70-105); SODIUM 142 MMOL/L (135-145); TOTAL PROTEIN 7.1 GM/DL (6.4-8.2)
== END ==
LOC: ONC 16:24
PROVIDERS: ATTEND Internal Medicine Hematology & Oncology
DX: Z12.31 Encounter for screening mammogram for malignant neoplasm of breast (principal); C50.012 Malignant neoplasm of nipple and areola, left female breast; I10 Essential (primary) hypertension; F32.9 Major depressive disorder, single episode, unspecified; R74.8 Abnormal levels of other serum enzymes; Z90.12 Acquired absence of left breast and nipple; Z87.39 Personal history of other diseases of the musculoskeletal system and connective tissue; Z96.653 Presence of artificial knee joint, bilateral; Z98.890 Other specified postprocedural states; Z86.718 Personal history of other venous thrombosis and embolism; Z83.2 Family history of diseases of the blood and blood-forming organs and certain disorders involving the immune mechanism; Z82.49 Family history of ischemic heart disease and other diseases of the circulatory system; Z92.3 Personal history of irradiation
CPT/HCPCS: 80053; 85025; G0463; 99213

== ENCOUNTER → 2021-01-08 | Outpatient (CLI) | payer MEDICARE ==
[~2021-01-08] MED LIST changes: +CATHETER FLUSH 10 ML SYR IV PRN; +HOLD METFORMIN - RECEIVED CONTRAST 20 ML VIAL IV SCH; +IOHEXOL 350 MG/ML 100 ML (OMNIPAQUE 350) VIAL IV ONE; +NS 100 ML (IVPB) BAG IV ONE
--- NOTE | 2021-01-08 14:16 | Diagnostic Imaging Report ---
PROCEDURE: CT chest with contrast only. TECHNIQUE: Multiple contiguous axial images were obtained through the chest after administration of intravenous contrast. Auto Exposure Controls were utilized during the CT exam to meet ALARA standards for radiation dose reduction. INDICATION: Left upper lobe pulmonary nodule, follow-up. CORRELATION: 01/13/2020 FINDINGS: Heart size enlarged. No pericardial effusion. Unchanged nodule right pericardial region. Heart size is enlarged. No pericardial effusion. Thoracic aortic contour unremarkable. Gastroesophageal junction relatively unremarkable. Azygos system is distended. Postoperative changes from left mastectomy. Previous noted small nodule left lung apex not appreciated follow-up. Likely minimal subpleural fibrosis over the left anterior chest. Unchanged faint small 4 mm nodule left lower lobe. Unchanged small nodule left upper lobe. Likely minimal areas of scarring or atelectasis the right lower lobe. No significant pleural effusion. Accentuated thoracic kyphosis and degenerative changes of the spine. 15 mm gallstone. Stable low-density mass left lobe probable cyst. Several additional low-density foci more centrally within the liver and right hepatic lobe are also present. Probable fluid in the previously noted fat-containing abdominal wall hernia. IMPRESSION: Previously noted left upper lobe pulmonary nodule not visualized follow-up. No concerning, enlarging pulmonary mass. Negative for acute findings of the chest. Dictated by: Dictated on workstation # [id number]
--- NOTE | 2021-01-09 08:19 | Diagnostic Imaging Report ---
EXAMINATION: Unilateral right screening mammogram with CAD. INDICATION: Screening. COMPARISON: This study was compared to the prior exams of 11/16/2019, 11/08/2018, and 09/28/2017. PERSONAL HISTORY: The patient has had a left mastectomy in 2010. At this time, there are no current complaints. FINDINGS: The breast is predominantly fatty. When compared to the previous exam, there does not appear to have been any significant change. There is no primary or secondary sign of malignancy noted. IMPRESSION: There is no evidence for malignancy. ACR BI-RADS Category 1: Negative. Result letter will be mailed to the patient. Note: At least 10% of breast cancer is not imaged by mammography. Dictated by: Dictated on workstation # [id number]
== END ==
LOC: RAD 12:45
PROVIDERS: ATTEND Nurse Practitioner Adult Health
DX: Z12.31 Encounter for screening mammogram for malignant neoplasm of breast (principal); Z90.12 Acquired absence of left breast and nipple
CPT/HCPCS: 71260; 77063

== ENCOUNTER 2021-10-04 18:41 | Emergency (ER) | payer MEDICARE ==
[~2021-10-04] VITALS: Ht 160 cm; Wt 83.9 kg
[~2021-10-04 18:41] MED LIST changes: -CATHETER FLUSH 10 ML SYR IV PRN; +CYCL10TA25 PO; -FLUO20CA46 PO; +FLUO20CA48 PO; -HOLD METFORMIN - RECEIVED CONTRAST 20 ML VIAL IV SCH; -IOHEXOL 350 MG/ML 100 ML (OMNIPAQUE 350) VIAL IV ONE; -NS 100 ML (IVPB) BAG IV ONE; +POTA-164 PO; -POTA10TA14 PO
--- NOTE | 2021-10-04 19:54 | ED Upper Extremity ---
General Chief Complaint: Laceration Stated Complaint: L HAND THUMB LAC Nursing Triage Note: Pt arrives via POV from home for c/o laceration to the left thumb. Pt reports cutting food with a sharp knife when it slipped et cut her thumb. Avulsion to the left thumb noted with blood present. Source: patient Exam Limitations: no limitations (TYRONE MEANS APRN) History of Present Illness Date Seen by Provider: Oct 04, 2021 Time Seen by Provider: 19:52 Initial Comments to ER with a skin avulsion to the side of the thumb over the IP joint from a sharp knife while she was cutting cabbage to make stew just prior to arrival tetanus is not up-to-date Onset: just prior to arrival Severity: moderate Pain/Injury Location: left thumb Method of Injury: unknown Modifying Factors: Worse With Movement (TYRONE MEANS APRN) Allergies and Home Medications Allergies Coded Allergies: codeine (Verified Allergy, Mild, HALLUCINATION, 02/13/16) morphine (Unverified Allergy, Mild, SKIN WAS BLOTCHY AND PINK., 04/02/16) Patient Home Medication List Home Medication List Reviewed: Yes (TYRONE MEANS APRN) Albuterol Sulfate (Albuterol Sulfate) 2.5 Mg/3 Ml Vial.neb, 2.5 MG INH Q4H PRN for WHEEZING Prescribed by: KRISTIE GOLDSTEIN on 09/01/192008 Aspirin (Aspirin) 81 Mg Tab.chew, 81 MG PO DAILY, (Reported) Entered as Reported by: BEVERLEY SHELBY on 10/15/17 1459 Azithromycin (Azithromycin) 250 Mg Tablet, 250 MG PO UD Prescribed by: KRISTIE GOLDSTEIN on 09/01/192007 Biotin (Biotin) 1,000 Mcg Tablet, 1,000 MCG PO DAILY, (Reported) Entered as Reported by: BEVERLEY SHELBY on 10/15/17 1459 Cholecalciferol (Vitamin D3) (Vitamin D3) 5,000 Unit Capsule, 5,000 UNIT PO DAILY, (Reported) Entered as Reported by: DAVID WONG on 07/11/15 1321 Cyanocobalamin (Vitamin B-12) (B-12) 1,000 Mcg Tablet, 2,500 MCG PO DAILY, (Reported) Entered as Reported by: BRENDA ERNANDEZ on 07/04/15 1040 Cyclobenzaprine HCl (Cyclobenzaprine HCl) 10 Mg Tablet, 10 MG PO HS, (Reported) Entered as Reported by: DAVID WONG on 07/11/15 1313 Gabapentin (Gabapentin) 300 Mg Capsule, 300 MG PO HS, (Reported) Entered as Reported by: DAVID WONG on 07/11/15 1314 Gabapentin (Gabapentin) 100 Mg Capsule, 100 MG PO DAILY, (Reported) Entered as Reported by: DAVID WONG on 07/11/15 1327 Hydrochlorothiazide (Hydrochlorothiazide) 25 Mg Tablet, 25 MG PO DAILY, (Reported) Entered as Reported by: DAVID WONG on 07/11/15 1313 Krill Oil (Krill Oil) 500 Mg Capsule, 500 MG PO DAILY, (Reported) Entered as Reported by: BRENDA ERNANDEZ on 07/04/15 104 L.acidoph & Paracasei,B.lactis (Probiotic) 1 Each Capsule, 1 CAP PO DAILY, (Reported) Entered as Reported by: BRENDA ERNANDEZ on 07/04/15 104 Meloxicam (Meloxicam) 15 Mg Tablet, 15 MG PO DAILY, (Reported) Entered as Reported by: BRENDA ERNANDEZ on 07/04/15 104 Metoprolol Tartrate (Metoprolol Tartrate) 50 Mg Tablet, 50 MG PO BID, (Reported) Entered as Reported by: DAVID WONG on 04/02/16 09 Multivitamin (Daily Multiple Vitamin) 1 Each Tablet, 1 TAB PO DAILY, (Reported) Entered as Reported by: BRENDA ERNANDEZ on 02/13/16 0919 Oxycodone HCl/Acetaminophen (Percocet 5-325 mg Tablet) 1 Each Tablet, 1 EACH PO Q4H Prescribed by: SALOMÓN ADKINS on 12/02/17 0950 Potassium Chloride (Klor-Con M10) 10 Meq Tab.er.prt, 10 MEQ PO DAILY, (Reported) Entered as Reported by: DAVID WONG on 04/02/16 09 Prednisone (Prednisone) 20 Mg Tab, 20 MG PO DAILY Prescribed by: KRISTIE GOLDSTEIN on 09/01/192007 Sertraline HCl (Sertraline HCl) 50 Mg Tablet, 50 MG PO DAILY, (Reported) Entered as Reported by: BEVERLEY SHELBY on 10/15/17 8516 Review of Systems Constitutional: see HPI EENTM: see HPI Respiratory: no symptoms reported Cardiovascular: no symptoms reported Genitourinary: no symptoms reported Musculoskeletal: see HPI Skin: no symptoms reported Psychiatric/Neurological: No Symptoms Reported (TYRONE MEANS APRN) Past Iwcnrem-Czxfea-Gbtcfz Hx Patient Social History Tobacco Use?: No Use of E-Cig and/or Vaping dev: No Substance use?: No Alcohol Use?: No Pt feels they are or have been: No (TYRONE MEANS APRN) Immunizations Up To Date Influenza Vaccine Up-to-Date: Yes; Up-to-Date (TYRONE MEANS APRN) Seasonal Allergies Seasonal Allergies: Yes (TYRONE MEANS APRN) Past Medical History Surgeries: Yes (SHOULDER SHOULDER X3, LIVER SURGERY-CYSTS, ) Abdominal, Joint Replacement, Orthopedic, Vascular Surgery Respiratory: Yes (EASILY GETS PNEUMONIA/BRONCHITIS FROM PAST SMOKING) Pneumonia, COPD Cardiac: Yes Deep Vein Thrombosis, Hypertension Neurological: Yes Neuropathy Reproductive Disorders: No (PAGETS DISEASE) Female Reproductive Disorders: Denies Sexually Transmitted Disease: No HIV/AIDS: No Genitourinary: No Gastrointestinal: Yes Hemorrhoids, Irritable Bowel Musculoskeletal: Yes Arthritis Endocrine: No HEENT: Yes (READING GLASSES) Loss of Vision: Bilateral Hearing Impairment: Denies Cancer: Yes (PAGETS DISEASE) Skin, Breast What Type of Treatment Did You: Surgical Intervention Psychosocial: Yes (TAKES ANTIDEPRESSANT FOR ARTHRITIS) Integumentary: No Blood Disorders: No Adverse Reaction/Blood Tranf: No (HAS HAD BLOOD WITH NO REACTION) (TYRONE MEANS APRN) Family Medical History Diabetes mellitus 19 FATHER FH: brain tumor 19 MOTHER Hypertension 19 FATHER Physical Exam Vital Signs Vital Signs - First Documented 10/04/21 19:20 Temp 36.7 Pulse 87 Resp 18 B/P (MAP) 100/65 (77) Pulse Ox 97 O2 Delivery Room Air (KRISTIE ESPARZA MD) Vital Signs Capillary Refill : Less Than 3 Seconds (TYRONE MEANS APRN) Height, Weight, BMI Height: 5'3.00" Weight: 200lbs. 6.0oz. [id number]; 32.00 BMI Method:Stated General Appearance: WD/WN, no apparent distress HEENT: PERRL/EOMI, normal ENT inspection Respiratory: no respiratory distress, no accessory muscle use Shoulder: normal inspection, non-tender Elbow/Forearm: normal inspection, non-tender Wrist: Yes normal inspection, Yes non-tender Hand: Left, laceration (Skin avulsion that cannot be sutured to the side of the IP joint of the left thumb. Tourniquet was applied, scrubbed with chlorhexidine/saline solution then skin affix wound adhesive applied for hemostasis) Neurologic/Psychiatric: alert, normal mood/affect, oriented x 3 Skin: normal color, warm/dry (TYRONE MEANS APRN) Progress/Results/Core Measures Results/Orders Blood Pressure Mean: 77 Departure Impression Primary Impression: Avulsion of skin of thumb Disposition: HOME, SELF-CARE Condition: Stable Departure-Patient Inst. Decision time for Depature: 19:53 (TYRONE MEANS APRN) Referrals: DOMINGUEZ OLGUIN MD (PCP/Family) Primary Care Physician Patient Instructions: SKIN AVULSION Add. Discharge Instructions: 1. Allow the glue to fall off on its own in 3 to 5 days. Do not apply any ointments or creams. All discharge instructions reviewed with patient and/or family. Voiced understanding. ATTENDING PHYSICIAN NOTE: I was physically present as attending physician in the emergency department during the care of this patient, but I was not directly involved in the decision making or delivery of care for this patient. (KRISTIE ESPARZA MD) TYRONE MEANS APRN Oct 04, 2021 19:54 KRISTIE ESPARZA MD Oct 05, 2021 18:12
[2021-10-04] MEDS ORDERED: TETANUS,DIPTH,PERTUSS P/F (BOOSTRIX) 0.5 ML VIAL IM ONE (20:00)
[2021-10-04 20:25] VITALS: BP 100/65
== END 2021-10-04 20:29 | disposition home or self-care (01) ==
LOC: EDUNIT# 18:41 → ER 18:42
DX: S61.012A Laceration without foreign body of left thumb without damage to nail, initial encounter (principal); I10 Essential (primary) hypertension; J44.9 Chronic obstructive pulmonary disease, unspecified; G62.9 Polyneuropathy, unspecified; Z79.52 Long term (current) use of systemic steroids; Z79.899 Other long term (current) drug therapy; Z23 Encounter for immunization; W26.0XXA Contact with knife, initial encounter
CPT/HCPCS: 90715

== ENCOUNTER 2021-11-19 12:44 | Outpatient (RCR) | payer MEDICARE ==
[2021-11-19 12:58] LABS: BASOPHILS % (AUTO) 1 % (0-10); EOSINOPHILS # (AUTO) 0.1 10^3/uL (0.0-0.3); EOSINOPHILS % (AUTO) 3 % (0-10); HEMATOCRIT 42 % (35-52); HEMOGLOBIN 14.1 g/dL (11.5-16.0); LYMPHOCYTES # (AUTO) 1.3 10^3/uL (1.0-4.0); LYMPHOCYTES % (AUTO) 30 % (12-44); MEAN CORPUSCULAR HEMOGLOBIN 30 pg (25-34); MEAN CORPUSCULAR HGB CONC 33 g/dL (32-36); MEAN CORPUSCULAR VOLUME 91 fL (80-99); MEAN PLATELET VOLUME 10.7 fL (9.0-12.2); MONOCYTES # (AUTO) 0.5 10^3/uL (0.0-1.0); MONOCYTES % (AUTO) 11 % (0-12); NEUTROPHILS # (AUTO) 2.3 10^3/uL (1.8-7.8); NEUTROPHILS % (AUTO) 55 % (42-75); PLATELET COUNT 166 10^3/uL (130-400); WHITE BLOOD COUNT 4.2 10^3/uL (4.3-11.0)
[2021-11-19 13:19] LABS: ALBUMIN 3.7 GM/DL (3.2-4.5); BILIRUBIN,TOTAL 0.6 MG/DL (0.1-1.0); CALCIUM 9.5 MG/DL (8.5-10.1); CREATININE SERUM 0.69 MG/DL (0.60-1.30); POTASSIUM 3.8 MMOL/L (3.6-5.0); TOTAL PROTEIN 7.4 GM/DL (6.4-8.2)
== END 2021-12-05 | disposition home or self-care (01) ==
LOC: ONC 12:44
PROVIDERS: ATTEND Internal Medicine Hematology & Oncology
DX: Z12.31 Encounter for screening mammogram for malignant neoplasm of breast (principal); I10 Essential (primary) hypertension; F32.9 Major depressive disorder, single episode, unspecified; E66.9 Obesity, unspecified; Z90.12 Acquired absence of left breast and nipple; Z85.3 Personal history of malignant neoplasm of breast
CPT/HCPCS: 80053; 85025; G0463; 36415; 99213

== ENCOUNTER → 2022-01-13 | Outpatient (CLI) | payer MEDICARE ==
--- NOTE | 2022-01-14 09:34 | Diagnostic Imaging Report ---
3-D right screening mammogram with CAD. This study was compared to the prior exams as far back as 09/28/2017. The patient has undergone a left mastectomy for carcinoma in 2011. At this time there are no current complaints. The current study was also evaluated with a Computer Aided Detection (CAD) system. FINDINGS: There are scattered fibroglandular densities in both breasts which could obscure a lesion. Overall, there does not appear to have been any significant change when compared to the prior exam. No primary or secondary sign of malignancy is noted. IMPRESSION: There is no radiographic evidence for malignancy. ACR BI-RADS Category 1: Negative. Result letter will be mailed to the patient. Note: At least 10% of breast cancer is not imaged by mammography. Dictated by: Dictated on workstation # [id number]
== END ==
LOC: RAD 11:00
PROVIDERS: ATTEND Internal Medicine Hematology & Oncology
DX: Z12.31 Encounter for screening mammogram for malignant neoplasm of breast (principal)
CPT/HCPCS: 77063

== ENCOUNTER 2023-02-07 21:31 | Emergency (ER) | payer MEDICARE ==
[~2023-02-07] VITALS: Ht 154.9 cm; Wt 80.3 kg
[~2023-02-07 21:31] MED LIST changes: +HYDR-4085 PO; -HYDR-87 PO
--- NOTE | 2023-02-07 21:53 | ED General ---
General Stated Complaint: EXCESS DRAINAGE AFTER SURGERY Source of Information: Patient, Caregiver (daughter) Exam Limitations: No Limitations History of Present Illness Date Seen by Provider: Feb 07, 2023 Time Seen by Provider: 21:42 Initial Comments 72-year-old female presents emergency department today for drainage from 1 for RUTH ANN drain insertion sites. She had a lumbar fusion at [facility] with Dr. Syed on Thursday. She was in the hospital until today. They removed 2 RUTH ANN drains just prior to her discharge. By the time she got home she had saturated her bandages. The drainage is slightly bloody and from the RUTH ANN drain insertion site where there is not a suture. No fevers or chills. No skin redness. No swelling in the area. All other systems reviewed and negative except documented per HPI. Voice recognition software was used to help create this chart Allergies and Home Medications Allergies Coded Allergies: codeine (Verified Allergy, Mild, HALLUCINATION, 02/13/16) morphine (Unverified Allergy, Mild, SKIN WAS BLOTCHY AND PINK., 04/02/16) Patient Home Medication List Home Medication List Reviewed: Yes Albuterol Sulfate (Albuterol Sulfate) 2.5 Mg/3 Ml Vial.neb, 2.5 MG INH Q4H PRN for WHEEZING Prescribed by: KRISTIE GOLDSTEIN on 09/01/192008 Aspirin (Aspirin) 81 Mg Tab.chew, 81 MG PO DAILY, (Reported) Entered as Reported by: BEVERLEY SHELBY on 10/15/17 1459 Azithromycin (Azithromycin) 250 Mg Tablet, 250 MG PO UD Prescribed by: KRISTIE GOLDSTEIN on 09/01/192007 Biotin (Biotin) 1,000 Mcg Tablet, 1,000 MCG PO DAILY, (Reported) Entered as Reported by: BEVERLEY SHELBY on 10/15/17 1459 Cholecalciferol (Vitamin D3) (Vitamin D3) 5,000 Unit Capsule, 5,000 UNIT PO DAILY, (Reported) Entered as Reported by: DAVID WONG on 07/11/15 1321 Cyanocobalamin (Vitamin B-12) (B-12) 1,000 Mcg Tablet, 2,500 MCG PO DAILY, (R eported) Entered as Reported by: BRENDA ERNANDEZ on 07/04/15 1040 Cyclobenzaprine HCl (Cyclobenzaprine HCl) 10 Mg Tablet, 10 MG PO HS, (Reported) Entered as Reported by: DAVID WONG on 07/11/15 1313 Gabapentin (Gabapentin) 300 Mg Capsule, 300 MG PO HS, (Reported) Entered as Reported by: DAVID WONG on 07/11/15 1314 Gabapentin (Gabapentin) 100 Mg Capsule, 100 MG PO DAILY, (Reported) Entered as Reported by: DAVID WONG on 07/11/15 1327 Hydrochlorothiazide (Hydrochlorothiazide) 25 Mg Tablet, 25 MG PO DAILY, (Reported) Entered as Reported by: DAVID WONG on 07/11/15 1313 Krill Oil (Krill Oil) 500 Mg Capsule, 500 MG PO DAILY, (Reported) Entered as Reported by: BRENDA ERNANDEZ on 07/04/15 1041 L.acidoph & Paracasei,B.lactis (Probiotic) 1 Each Capsule, 1 CAP PO DAILY, (Reported) Entered as Reported by: BRENDA ERNANDEZ on 07/04/15 1040 Meloxicam (Meloxicam) 15 Mg Tablet, 15 MG PO DAILY, (Reported) Entered as Reported by: BRENDA ERNANDEZ on 07/04/15 1040 Metoprolol Tartrate (Metoprolol Tartrate) 50 Mg Tablet, 50 MG PO BID, (Reported) Entered as Reported by: DAVID WONG on 04/02/16 0922 Multivitamin (Daily Multiple Vitamin) 1 Each Tablet, 1 TAB PO DAILY, (Reported) Entered as Reported by: BRENDA ERNANDEZ on 02/13/16 0919 Oxycodone HCl/Acetaminophen (Percocet 5-325 mg Tablet) 1 Each Tablet, 1 EACH PO Q4H Prescribed by: SALOMÓN ADKINS on 12/02/17 0950 Potassium Chloride (Klor-Con M10) 10 Meq Tab.er.prt, 10 MEQ PO DAILY, (Reported) Entered as Reported by: DAVID WONG on 04/02/16 09 Prednisone (Prednisone) 20 Mg Tab, 20 MG PO DAILY Prescribed by: KRISTIE GOLDSTEIN on 09/01/192007 Sertraline HCl (Sertraline HCl) 50 Mg Tablet, 50 MG PO DAILY, (Reported) Entered as Reported by: BEVERLEY SHELBY on 10/15/17 0073 Review of Systems Review of Systems Constitutional: see HPI Past Fjxoeec-Cfccon-Rfmhlv Hx Patient Social History Tobacco Use?: No Use of E-Cig and/or Vaping dev: No Substance use?: No Seasonal Allergies Seasonal Allergies: Yes Past Medical History Surgeries: Yes (SHOULDER SHOULDER X3, LIVER SURGERY-CYSTS, ) Abdominal, Joint Replacement, Orthopedic, Vascular Surgery Respiratory: Yes (EASILY GETS PNEUMONIA/BRONCHITIS FROM PAST SMOKING) Pneumonia, COPD Cardiac: Yes Deep Vein Thrombosis, Hypertension Neurological: Yes Neuropathy Reproductive Disorders: No (PAGETS DISEASE) Female Reproductive Disorders: Denies Sexually Transmitted Disease: No HIV/AIDS: No Genitourinary: No Gastrointestinal: Yes Hemorrhoids, Irritable Bowel Musculoskeletal: Yes Arthritis Endocrine: No HEENT: Yes (READING GLASSES) Loss of Vision: Bilateral Hearing Impairment: Denies Cancer: Yes (PAGETS DISEASE) Skin, Breast What Type of Treatment Did You: Surgical Intervention Psychosocial: Yes (TAKES ANTIDEPRESSANT FOR ARTHRITIS) Integumentary: No Blood Disorders: No Adverse Reaction/Blood Tranf: No (HAS HAD BLOOD WITH NO REACTION) Family Medical History Diabetes mellitus 19 FATHER FH: brain tumor 19 MOTHER Hypertension 19 FATHER Physical Exam Vital Signs Capillary Refill : Height, Weight, BMI Height: 5'3.00" Weight: 200lbs. 6.0oz. 90.840907vf; 32.00 BMI Method:Stated General Appearance: No Apparent Distress Respiratory: Chest Non Tender, No Respiratory Distress Cardiovascular: Regular Rate, Rhythm, Normal Peripheral Pulses Back: Other (Lower right RUTH ANN drain site does not have a suture. There is serosanguineous drainage. No evidence for infection. No purulence. No surrounding erythema. Other incisions are healing well without evidence for infection) Neurologic/Psychiatric: Alert, Oriented x3 Procedures/Interventions Wound Location: Trunk Other Wound Location right low back Wound's Depth, Shape: linear Wound Explored: clean Betadine Prep?: Yes Anesthesia: 1% Lidocaine Suture: Ethlion Suture Size: 4-0 Number of Sutures: 1 Layer Closure?: 1 Sterile Dressing Applied?: Yes Progress/Results/Core Measures Suspected Sepsis SIRS Temperature: Pulse: Respiratory Rate: Blood Pressure / Mean: Results/Orders My Orders Orders - DON RITCHIE DO Lidocaine 1% Inj 20 Ml (Xylocaine 1% Inj (02/07/23 22:00) Vital Signs/I&O Capillary Refill : Departure Communication (Admissions) Patient is hemodynamically stable. She had serosanguineous drainage from the RUTH ANN drain incision site. There is no stitch in this area so I numbed it up and placed a single suture. This stopped the drainage. Advise she may have slight swelling in the area now that is not draining externally. She states under standing. Advised return for any severe swelling, redness that spreading or drainage that looks like pus. She states understanding. Otherwise she will follow-up with her neurosurgeon for suture removal as previously scheduled. Impression Primary Impression: Postoperative bleeding from incision Disposition: HOME, SELF-CARE Condition: Stable Departure-Patient Inst. Referrals: DOMINGUEZ OLGUIN MD (PCP/Family) Primary Care Physician Patient Instructions: Bleeding After Surgery Add. Discharge Instructions: A suture was placed in the area which is helped with your drainage. Follow-up with your neurosurgeon as previously scheduled. The stitches can come out at the same time as the current stitches. Return to the emergency department for any severe concerns. DON RITCHIE DO Feb 07, 2023 21:53
[2023-02-07] MEDS ORDERED: LIDOCAINE 1% INJ 20 ML VIAL INJ ONE (22:00)
[2023-02-07 22:18] VITALS: BP 113/58
== END 2023-02-07 22:18 | disposition home or self-care (01) ==
LOC: EDUNIT# 21:31 → ER 21:34
DX: M96.830 Postprocedural hemorrhage of a musculoskeletal structure following a musculoskeletal system procedure (principal); M19.90 Unspecified osteoarthritis, unspecified site; Z79.899 Other long term (current) drug therapy
CPT/HCPCS: 99281

== ENCOUNTER → 2023-05-13 | Outpatient (CLI) | payer MEDICARE ==
[~2023-05-13] MED LIST changes: +BARIUM for suspension 96% w/w (Vanilla Silq Medium Density) PO ONE; +BARIUM for suspension 98% w/w (Vanilla Silq High Density) PO ONE
--- NOTE | 2023-05-13 10:57 | Diagnostic Imaging Report ---
INDICATION: Increasing epigastric pain. TECHNIQUE: The patient ingested effervescent crystals as well as thin and thick barium and imaging over the esophagus, stomach, and proximal small bowel was performed. 49 seconds of fluoroscopic time was utilized. Reference air kerma is 35.4 mGy. 39 images were obtained. FINDINGS: The preliminary radiograph over the abdomen demonstrates postop changes in the lower lumbar spine from posterior instrumented fusion. There are surgical clips in the right upper quadrant. The esophagus has a smooth contour. No mass or stricture is identified. No hiatal hernia or gastroesophageal reflux was demonstrated. The stomach is normal in configuration. There was prompt emptying into the small bowel. The duodenal bulb is without deformity. No mass or ulceration is identified. IMPRESSION: Unremarkable upper GI study. Dictated by: Dictated on workstation # [id number]
== END ==
LOC: RAD 08:35
PROVIDERS: ATTEND Family Medicine
DX: R10.13 Epigastric pain (principal); Z87.898 Personal history of other specified conditions
CPT/HCPCS: 74246

== ENCOUNTER 2023-07-06 11:06 | Outpatient (RCR) | payer MEDICARE, MEDICAID ==
[~2023-07-06 11:06] MED LIST changes: -BARIUM for suspension 96% w/w (Vanilla Silq Medium Density) PO ONE; -BARIUM for suspension 98% w/w (Vanilla Silq High Density) PO ONE
== END 2023-07-07 | disposition home or self-care (01) ==
PROVIDERS: ATTEND Neurological Surgery
DX: M54.50 Low back pain, unspecified (principal); M62.81 Muscle weakness (generalized); M43.26 Fusion of spine, lumbar region

== ENCOUNTER 2023-07-29 12:51 | Outpatient (RCR) | payer MEDICARE, MEDICAID | END 2023-08-06 | disposition home or self-care (01) | PROVIDERS: ATTEND Neurological Surgery | DX: M62.81 Muscle weakness (generalized) (principal); M54.50 Low back pain, unspecified; M43.26 Fusion of spine, lumbar region; Z96.653 Presence of artificial knee joint, bilateral ==